=== PATIENT | female | born 1990 | race American Indian/Alaskan Native ===

== ENCOUNTER 2018-10-07 22:35 | Inpatient (IN) | payer OTHER, MEDICAID ==
[2018-10-07] MEDS ORDERED: LACTATED RINGERS 1,000 ML IV ONE (23:03)
[2018-10-07] MEDS ORDERED: ZOFRAN IV ONE (23:22)
[2018-10-07] MEDS ORDERED: PEPCID IV ONE (23:38)
[2018-10-07 23:39] LABS: Hematocrit 30.6 % (30.3-42.9); Hemoglobin 10.7 gm/dl (10.1-14.3); Mean Corpuscular HGB Conc 35 % (30-34); Mean Corpuscular Volume 92 fl (79-97); Platelet Count 179 K/mm3 (140-440); Red Blood Count 3.34 M/mm3 (3.65-5.03); Red Cell Distribution Width 14.2 % (13.2-15.2)
[2018-10-07 23:40] LABS: Bacteria,Urine 1+ /HPF (Negative); Bilirubin,Urine NEG (Negative); Blood,Urine NEG (Negative); Calcium Oxalate Crystals,Urine 2+; Color,Urine Yellow (Yellow); Mucus,Urine 1+ /HPF; Protein,Urine <15 mg/dL mg/dL (Negative); Urobilinogen,Urine < 2.0 mg/dL (<2.0)
[2018-10-07 23:53] LABS: Alanine Aminotransferase 88 units/L (7-56); Albumin 3.1 g/dL (3.9-5); BUN/Creatinine Ratio 20; Blood Urea Nitrogen 6 mg/dL (7-17); Calcium 8.8 mg/dL (8.4-10.2); Hemolysis Index 7
--- NOTE | 2018-10-08 01:14 | History and Physical Report ---
History of Present Illness Date of examination: 10/08/18 Date of admission: 10/08/18 Chief complaint: reflux History of present illness: Pt presented c/o having heartburn pain, burping with nausea w/o ability to find relief with otc meds. BP was initially elevated but cuff was changed and bps have trended downward. She had PIH labs and LFT were elevated. Pt does have CHTN with admission at 20 weeks and dx of super imposed pre E. 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 Pt admitted for observation for worsening pre E and for steroid administration. Menstrual History Regularity: regular Menses every: 28 days Duration: 4 LMP: 04/10/2018 LMP reliability: definite LMP character: heavier test type: urine test Date: 05/31/2018 BC at conception: none Planned ? no EDC Calculations LMP: 01/15/2019 EDC Confirmation: 01/15/2019 Gestational Age: 7 2/7 weeks Past History : 2 Term Births: 0 Premature Births: 0 Para: 0 Mult. Births: 0 Prev : 0 Prev. attempt? 0 Aborta: 1 Spont. Ab: 0 Past Medical History: Reviewed history from 07/24/2017 and no changes required: Hypertension untreated Past Surgical History: negative Past Medical History Anesthesia Complications: negative Anemia: negative Autoimmune Disorder: negative Bleeding Disorder: negative Blood Transfusions: negative Breast Disease: negative Diabetes: negative Heart Disease: negative Hypertension: positive Hepatitis/Liver Disease: negative Kidney Disease/UTI: negative Neurologic/Epilepsy/Migraines: negative Phlebitis/Varicosities: negative Psychiatric: negative Pulmonary Disease/Asthma: negative Thyroid Disease: negative Hospitalizations: negative 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 of genital herpes: no Partner hx. of genital herpes: no Rash, Viral, or Febrile illness since last LMP? no Varicella/Chicken Pox Status: Previous Disease Genetic History Congenital Heart Defect: Mom: no Dad: no Jasmin Disease: Mom: no Dad: no Thalassemia Mom: no Dad: no Neural Tube Defect Mom: no Dad: no Down's Syndrome Mom: no Dad: no Emmanuel-Sachs Mom: no Dad: no Sickle Cell Disease/Trait Mom: no Dad: no Hemophilia Mom: no Dad: no Muscular Dystrophy Mom: no Dad: no Cystic Fibrosis Mom: no Dad: no [place] Chorea Mom: no Dad: no Mental Retardation Mom: no Dad: no Fragile X Mom: no Dad: no Other Genetic/Chromosomal Disorder Mom: no Dad: no Child w/other defect Mom: no Dad: no Enviromental Exposures Xray Exposure: no Medication, drug, or alcohol use since LMP: no Chemical/Other Exposure: no Exposure to Cat Liter: no Hx of Parvovirus (Fifth Disease): no Occupational Exposure to Children: none Active Medications (reviewed today): ERGOCALCIFEROL 91200 UNIT ORAL CAPSULE (ERGOCALCIFEROL) 1 cap weekly for 8 weeks CHLORTHALIDONE 25 MG ORAL TABLET (CHLORTHALIDONE) 1 tab daily AMLODIPINE BESYLATE 5 MG ORAL TABLET (AMLODIPINE BESYLATE) 1 tablet q am Current Allergies (reviewed today): No known allergies Past History Past Medical History: hypertension, other (super imposed pre eclampsia) Past Surgical History: other (see hpi) 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) Family/Genetic History: other (see hpi) Social history: no significant social history, single - Obstetrical History Expected Date of Delivery: 01/15/19 Actual Gestation: 25 Week(s) 6 Day(s) : 2 Medications and Allergies Allergies Allergy/AdvReac Type Severity Reaction Status Date / Time No Known Allergies Allergy Verified 08/16/18 14:18 Home Medications Medication Instructions Recorded Confirmed Last Taken Type Labetalol HCl 300 mg PO Q12H 30 Days #60 tablet 08/16/18 10/07/18 10/07/18 10:00 Rx Pnv 29-1 Tablet 1 tab PO DAILY 09/07/18 10/07/18 10/07/18 History Aspirin 81 mg PO DAILY 09/08/18 10/07/18 10/07/18 10:00 History hydrALAZINE [Apresoline] 50 mg PO Q8HR 10/07/18 10/07/18 10/07/18 14:00 History Active Meds: Active Medications Famotidine (Pepcid) 20 mg IV ONCE ONE Stop: 10/08/18 23:23 Review of Systems All systems: negative - Vital Signs Vital signs: Vital Signs Pulse Pulse Ox 92 H 99 10/07/18 22:53 10/07/18 22:53 Temp Pulse Resp BP Pulse Ox 90 149/83 99 10/08/18 01:06 10/08/18 00:05 10/08/18 01:06 - Physical Exam Cardiovascular: Normal S1, Normal S2 Lungs: Positive: Normal air movement Abdomen: Positive: normal appearance, soft. Negative: distention, tenderness, guarding Genitourinary (Female): Positive: other (deferred) Deep Tendon Reflex Grade: Normal +2 - Obstetrical FHR: auscultation normal Results Result Diagrams: 10/07/18 23:17 10/07/18 23:17 Abnormal lab results 10/07/18 10/07/18 10/07/18 Range/Units 23:17 23:17 23:17 WBC 11.1 H (4.5-11.0) K/mm3 RBC 3.34 L (3.65-5.03) M/mm3 MCHC 35 H (30-34) % Sodium 133 L (137-145) mmol/L BUN 6 L (7-17) mg/dL Creatinine 0.3 L (0.7-1.2) mg/dL Uric Acid 3.0 L (3.5-7.6) mg/dL AST 157 H (5-40) units/L ALT 88 H (7-56) units/L Alkaline Phosphatase 189 H (35-129) units/L Total Protein 6.1 L (6.3-8.2) g/dL Albumin 3.1 L (3.9-5) g/dL All other labs normal. Assessment and Plan - Patient Problems (1) 25 weeks gestation of Current Visit: Yes Status: Acute (2) Elevated LFTs Current Visit: Yes Status: Acute Plan to address problem: -previously LFTS were normal. Will administer BMZ at this time as pt is viable and has dx of preE and may be showing worsening symptoms with elevated LFTs -24hr urine done previous admission and dx of pre E given. Will monitor labs at this time -M consultation (3) HTN in , chronic Current Visit: No Status: Acute Plan to address problem: -once cuff adjusted bps have improved -closely monitor and con't meds (4) IUGR (intrauterine growth restriction) Current Visit: No Status: Acute (5) Umbilical cord, single artery and vein Current Visit: No Status: Acute (6) Chronic hypertension with superimposed pre-eclampsia Current Visit: No Status: Chronic (7) ventricular septal defect affecting antepartum care of mother Current Visit: No Status: Chronic Qualifiers: Fetus number: single or unspecified fetus Qualified Code(s): O35.8XX0 - Maternal care for other (suspected) abnormality and damage, not applicable or unspecified
[2018-10-08] MEDS ORDERED: ZOFRAN IV PRN (02:08)
[2018-10-08] MEDS ORDERED: TYLENOL PO PRN (02:08)
[2018-10-08] MEDS ORDERED: CELESTONE SOLUSPAN IM ONE (02:44)
[2018-10-08] MEDS: APRESOLINE PO SCH ×3 (06:16→22:32)
[2018-10-08 06:54] LABS: Alanine Aminotransferase 128 units/L (7-56); Albumin 3.1 g/dL (3.9-5); BUN/Creatinine Ratio 10; Blood Urea Nitrogen 4 mg/dL (7-17); Hemolysis Index 1
[2018-10-08 08:08] LABS: Hematocrit 32.1 % (30.3-42.9); Hemoglobin 11.2 gm/dl (10.1-14.3); Mean Corpuscular HGB Conc 35 % (30-34); Mean Corpuscular Volume 90 fl (79-97); Platelet Count 147 K/mm3 (140-440); Red Blood Count 3.56 M/mm3 (3.65-5.03); Red Cell Distribution Width 14.3 % (13.2-15.2)
--- NOTE | 2018-10-08 09:00 | Progress Note ---
Assessment and Plan Patient resting comfortably in bed. No complaints at this time. Denies any PIH s/s, assessment WNL. DWP current plan of care. Awaiting consult from perinatologist and will update patient with any changes of plan per their recommendations. Subjective - Subjective Date of service: 10/08/18 Patient reports: movement normal, no new complaints, no loss of fluid, no vaginal bleeding, no contractions Objective - Vital Signs Vital Signs: Vital Signs - 12hr 10/07/18 10/07/18 10/07/18 22:53 22:55 22:58 Temperature Pulse Rate 92 H 97 H 92 H Respiratory Rate Blood Pressure Blood Pressure [Right] O2 Sat by Pulse 99 99 Oximetry 10/07/18 10/07/18 10/07/18 23:03 23:05 23:08 Temperature Pulse Rate 93 H 93 H 93 H Respiratory Rate Blood Pressure 168/101 Blood Pressure [Right] O2 Sat by Pulse 100 99 Oximetry 10/07/18 10/07/18 10/07/18 23:09 23:17 23:20 Temperature Pulse Rate 88 94 H 84 Respiratory Rate Blood Pressure 158/94 151/89 Blood Pressure [Right] O2 Sat by Pulse 99 Oximetry 10/07/18 10/07/18 10/07/18 23:22 23:27 23:32 Temperature Pulse Rate 85 91 H 85 Respiratory Rate Blood Pressure Blood Pressure [Right] O2 Sat by Pulse 100 99 99 Oximetry 10/07/18 10/07/18 10/07/18 23:35 23:36 23:41 Temperature Pulse Rate 85 85 85 Respiratory Rate Blood Pressure 153/89 Blood Pressure [Right] O2 Sat by Pulse 99 100 Oximetry 10/07/18 10/07/18 10/07/18 23:47 23:50 23:51 Temperature Pulse Rate 90 86 86 Respiratory Rate Blood Pressure 157/88 Blood Pressure [Right] O2 Sat by Pulse 100 99 Oximetry 10/07/18 10/08/18 10/08/18 23:56 00:01 00:05 Temperature Pulse Rate 87 89 85 Respiratory Rate Blood Pressure 149/83 Blood Pressure [Right] O2 Sat by Pulse 100 100 Oximetry 10/08/18 10/08/18 10/08/18 00:06 00:11 00:16 Temperature Pulse Rate 86 87 90 Respiratory Rate Blood Pressure Blood Pressure [Right] O2 Sat by Pulse 100 99 99 Oximetry 10/08/18 10/08/18 10/08/18 00:21 00:26 00:31 Temperature Pulse Rate 90 86 93 H Respiratory Rate Blood Pressure Blood Pressure [Right] O2 Sat by Pulse 100 99 100 Oximetry 10/08/18 10/08/18 10/08/18 00:36 00:41 00:46 Temperature Pulse Rate 96 H 88 88 Respiratory Rate Blood Pressure Blood Pressure [Right] O2 Sat by Pulse 100 100 100 Oximetry 10/08/18 10/08/18 10/08/18 00:51 00:56 01:01 Temperature Pulse Rate 88 87 91 H Respiratory Rate Blood Pressure Blood Pressure [Right] O2 Sat by Pulse 100 100 99 Oximetry 10/08/18 10/08/18 10/08/18 01:06 01:11 01:16 Temperature Pulse Rate 90 94 H 91 H Respiratory Rate Blood Pressure Blood Pressure [Right] O2 Sat by Pulse 99 99 98 Oximetry 10/08/18 10/08/18 10/08/18 01:17 01:21 01:26 Temperature 98.3 F Pulse Rate 92 H 84 84 Respiratory 18 Rate Blood Pressure 158/81 Blood Pressure 158/81 [Right] O2 Sat by Pulse 99 99 Oximetry 10/08/18 10/08/18 10/08/18 02:02 02:07 02:12 Temperature Pulse Rate 77 79 84 Respiratory Rate Blood Pressure Blood Pressure [Right] O2 Sat by Pulse 96 100 99 Oximetry 10/08/18 10/08/18 10/08/18 02:17 02:22 02:27 Temperature Pulse Rate 91 H 91 H 92 H Respiratory Rate Blood Pressure Blood Pressure [Right] O2 Sat by Pulse 99 99 100 Oximetry 10/08/18 10/08/18 10/08/18 02:32 02:37 02:42 Temperature Pulse Rate 92 H 90 84 Respiratory Rate Blood Pressure Blood Pressure [Right] O2 Sat by Pulse 99 99 100 Oximetry 10/08/18 10/08/18 10/08/18 02:47 02:52 02:57 Temperature Pulse Rate 89 95 H 91 H Respiratory Rate Blood Pressure Blood Pressure [Right] O2 Sat by Pulse 99 100 100 Oximetry 10/08/18 10/08/18 10/08/18 03:00 03:02 03:07 Temperature Pulse Rate 87 95 H 93 H Respiratory Rate Blood Pressure 134/78 Blood Pressure 138/78 [Right] O2 Sat by Pulse 98 98 Oximetry 10/08/18 10/08/18 10/08/18 03:13 03:18 03:23 Temperature Pulse Rate 93 H 99 H 92 H Respiratory Rate Blood Pressure Blood Pressure [Right] O2 Sat by Pulse 98 96 97 Oximetry 10/08/18 10/08/18 10/08/18 03:28 03:31 03:33 Temperature Pulse Rate 101 H 97 H 85 Respiratory Rate Blood Pressure 162/100 Blood Pressure [Right] O2 Sat by Pulse 97 97 Oximetry 10/08/18 10/08/18 10/08/18 03:38 03:43 03:48 Temperature Pulse Rate 94 H 89 104 H Respiratory Rate Blood Pressure Blood Pressure [Right] O2 Sat by Pulse 97 97 97 Oximetry 10/08/18 10/08/18 10/08/18 03:53 03:58 04:00 Temperature Pulse Rate 88 105 H 88 Respiratory Rate Blood Pressure 129/68 Blood Pressure [Right] O2 Sat by Pulse 96 97 92 Oximetry 10/08/18 10/08/18 10/08/18 04:03 04:08 04:13 Temperature Pulse Rate 83 92 H 91 H Respiratory Rate Blood Pressure Blood Pressure [Right] O2 Sat by Pulse 96 95 96 Oximetry 10/08/18 10/08/18 10/08/18 04:18 04:23 04:28 Temperature Pulse Rate 112 H 93 H 91 H Respiratory Rate Blood Pressure Blood Pressure [Right] O2 Sat by Pulse 97 98 96 Oximetry 10/08/18 10/08/18 10/08/18 04:30 04:33 04:38 Temperature Pulse Rate 94 H 89 91 H Respiratory Rate Blood Pressure 123/71 Blood Pressure [Right] O2 Sat by Pulse 94 96 96 Oximetry 10/08/18 10/08/18 10/08/18 04:43 04:48 04:53 Temperature Pulse Rate 88 88 89 Respiratory Rate Blood Pressure Blood Pressure [Right] O2 Sat by Pulse 96 96 96 Oximetry 10/08/18 10/08/18 10/08/18 04:58 05:00 05:03 Temperature Pulse Rate 84 86 82 Respiratory Rate Blood Pressure 131/78 Blood Pressure [Right] O2 Sat by Pulse 95 94 96 Oximetry 10/08/18 10/08/18 10/08/18 05:08 05:13 05:18 Temperature Pulse Rate 85 82 86 Respiratory Rate Blood Pressure Blood Pressure [Right] O2 Sat by Pulse 96 95 96 Oximetry 10/08/18 10/08/18 10/08/18 05:23 05:28 05:30 Temperature Pulse Rate 87 79 81 Respiratory Rate Blood Pressure 127/73 Blood Pressure [Right] O2 Sat by Pulse 96 96 94 Oximetry 10/08/18 10/08/18 10/08/18 05:33 05:38 05:43 Temperature Pulse Rate 81 83 86 Respiratory Rate Blood Pressure Blood Pressure [Right] O2 Sat by Pulse 96 96 96 Oximetry 10/08/18 10/08/18 10/08/18 05:48 05:53 05:58 Temperature Pulse Rate 73 88 82 Respiratory Rate Blood Pressure Blood Pressure [Right] O2 Sat by Pulse 97 96 97 Oximetry 10/08/18 10/08/18 10/08/18 06:00 06:03 06:08 Temperature Pulse Rate 86 81 82 Respiratory Rate Blood Pressure 131/75 Blood Pressure [Right] O2 Sat by Pulse 96 97 Oximetry 10/08/18 10/08/18 10/08/18 06:13 06:15 06:16 Temperature 98.3 F Pulse Rate 75 80 79 Respiratory 20 Rate Blood Pressure 133/77 133/77 Blood Pressure 133/75 [Right] O2 Sat by Pulse 95 Oximetry 10/08/18 10/08/18 07:38 08:25 Temperature Pulse Rate 83 87 Respiratory Rate Blood Pressure 137/69 151/84 Blood Pressure [Right] O2 Sat by Pulse Oximetry - Exam Breasts: normal Cardiovascular: Regular rate, Normal S1, Normal S2 Lungs: Clear to auscultation Abdomen: Present: normal appearance, soft, normal bowel sounds. Absent: distention, tenderness Uterus: Present: normal FHR: auscultation normal FHR comments: appropriate for gestational age Uterine Contraction Monitor Mode: External - Labs Labs: Abnormal Labs 10/07/18 10/07/18 10/07/18 23:17 23:17 23:17 WBC 11.1 H RBC 3.34 L MCHC 35 H Sodium 133 L Carbon Dioxide BUN 6 L Creatinine 0.3 L Glucose Uric Acid 3.0 L AST 157 H ALT 88 H Alkaline Phosphatase 189 H Total Protein 6.1 L Albumin 3.1 L 10/08/18 10/08/18 06:06 07:43 WBC RBC 3.56 L MCHC 35 H Sodium 136 L Carbon Dioxide 20 L BUN 4 L Creatinine 0.4 L Glucose 109 H Uric Acid AST 221 H ALT 128 H Alkaline Phosphatase 201 H Total Protein Albumin 3.1 L Laboratory Results - last 24 hr 10/07/18 10/07/18 10/07/18 23:17 23:17 23:17 WBC 11.1 H RBC 3.34 L Hgb 10.7 Hct 30.6 MCV 92 MCH 32 MCHC 35 H RDW 14.2 Plt Count 179 Sodium 133 L Potassium 3.9 Chloride 100.9 Carbon Dioxide 22 Anion Gap 14 BUN 6 L Creatinine 0.3 L Estimated GFR > 60 BUN/Creatinine Ratio 20 Glucose 95 Uric Acid Calcium 8.8 Total Bilirubin 0.50 AST 157 H ALT 88 H Alkaline Phosphatase 189 H Total Protein 6.1 L Albumin 3.1 L Albumin/Globulin Ratio 1.0 Amylase Lipase Urine Color Yellow Urine Turbidity Clear Urine pH 6.0 Ur Specific [place] 1.016 Urine Protein <15 mg/dl Urine Glucose (UA) Neg Urine Ketones Neg Urine Blood Neg Urine Nitrite Neg Urine Bilirubin Neg Urine Urobilinogen < 2.0 Ur Leukocyte Esterase Neg Urine WBC (Auto) 3.0 Urine RBC (Auto) 2.0 U Epithel Cells (Auto) 6.0 Urine Bacteria (Auto) 1+ Calcium Oxalate Crystal 2+ Urine Mucus 1+ Blood Type Antibody Screen 10/07/18 10/07/18 10/08/18 23:17 23:17 06:06 WBC RBC Hgb Hct MCV MCH MCHC RDW Plt Count Sodium 136 L Potassium 4.2 Chloride 104.0 Carbon Dioxide 20 L Anion Gap 16 BUN 4 L Creatinine 0.4 L Estimated GFR > 60 BUN/Creatinine Ratio 10 Glucose 109 H Uric Acid 3.0 L Calcium 9.0 Total Bilirubin 0.70 AST 221 H ALT 128 H Alkaline Phosphatase 201 H Total Protein 6.3 Albumin 3.1 L Albumin/Globulin Ratio 1.0 Amylase Lipase Urine Color Urine Turbidity Urine pH Ur Specific [place] Urine Protein Urine Glucose (UA) Urine Ketones Urine Blood Urine Nitrite Urine Bilirubin Urine Urobilinogen Ur Leukocyte Esterase Urine WBC (Auto) Urine RBC (Auto) U Epithel Cells (Auto) Urine Bacteria (Auto) Calcium Oxalate Crystal Urine Mucus Blood Type O POSITIVE Antibody Screen Negative 10/08/18 10/08/18 06:06 07:43 WBC 11.0 RBC 3.56 L Hgb 11.2 Hct 32.1 MCV 90 MCH 31 MCHC 35 H RDW 14.3 Plt Count 147 Sodium Potassium Chloride Carbon Dioxide Anion Gap BUN Creatinine Estimated GFR BUN/Creatinine Ratio Glucose Uric Acid Calcium Total Bilirubin AST ALT Alkaline Phosphatase Total Protein Albumin Albumin/Globulin Ratio Amylase 40 Lipase 19 Urine Color Urine Turbidity Urine pH Ur Specific [place] Urine Protein Urine Glucose (UA) Urine Ketones Urine Blood Urine Nitrite Urine Bilirubin Urine Urobilinogen Ur Leukocyte Esterase Urine WBC (Auto) Urine RBC (Auto) U Epithel Cells (Auto) Urine Bacteria (Auto) Calcium Oxalate Crystal Urine Mucus Blood Type Antibody Screen
[2018-10-08] MEDS ORDERED: CELESTONE SOLUSPAN IM SCH (10:00)
[2018-10-08] MEDS ORDERED: NORMODYNE PO SCH (10:00)
[2018-10-08] MEDS ORDERED: BABY ASPIRIN PO SCH (10:00)
[2018-10-08] MEDS: PRENATAL VITAMIN PO SCH (10:19)
[2018-10-08] MEDS ORDERED: LACTATED RINGERS 1,000 ML IV SCH (11:00)
--- NOTE | 2018-10-08 11:47 | Progress Note ---
Assessment and Plan AMFM consult pending Continue current management - Patient Problems (1) 26 weeks gestation of Current Visit: Yes Status: Acute (2) Body mass index (BMI) of 40.1 to 44.9 in adult Current Visit: Yes Status: Acute (3) Elevated LFTs Current Visit: Yes Status: Acute (4) HTN in , chronic Current Visit: No Status: Acute (5) IUGR (intrauterine growth restriction) Current Visit: No Status: Acute (6) Umbilical cord, single artery and vein Current Visit: No Status: Acute (7) Chronic hypertension with superimposed pre-eclampsia Current Visit: No Status: Chronic (8) ventricular septal defect affecting antepartum care of mother Current Visit: No Status: Chronic Qualifiers: Fetus number: single or unspecified fetus Qualified Code(s): O35.8XX0 - Maternal care for other (suspected) abnormality and damage, not applicable or unspecified (9) Fibroid Current Visit: Yes Status: Chronic Subjective - Subjective Date of service: 10/08/18 Interval history: IUP@2weeks, Preeclampsia with severe feature superimposed on HTN, anomalies Patient reports: movement normal, no new complaints, no loss of fluid, no vaginal bleeding, no contractions Objective - Vital Signs Vital Signs: Vital Signs - 12hr 10/07/18 10/07/18 10/07/18 23:47 23:50 23:51 Temperature Pulse Rate 90 86 86 Respiratory Rate Blood Pressure 157/88 Blood Pressure [Right] O2 Sat by Pulse 100 99 Oximetry 10/07/18 10/08/18 10/08/18 23:56 00:01 00:05 Temperature Pulse Rate 87 89 85 Respiratory Rate Blood Pressure 149/83 Blood Pressure [Right] O2 Sat by Pulse 100 100 Oximetry 10/08/18 10/08/18 10/08/18 00:06 00:11 00:16 Temperature Pulse Rate 86 87 90 Respiratory Rate Blood Pressure Blood Pressure [Right] O2 Sat by Pulse 100 99 99 Oximetry 10/08/18 10/08/18 10/08/18 00:21 00:26 00:31 Temperature Pulse Rate 90 86 93 H Respiratory Rate Blood Pressure Blood Pressure [Right] O2 Sat by Pulse 100 99 100 Oximetry 10/08/18 10/08/18 10/08/18 00:36 00:41 00:46 Temperature Pulse Rate 96 H 88 88 Respiratory Rate Blood Pressure Blood Pressure [Right] O2 Sat by Pulse 100 100 100 Oximetry 10/08/18 10/08/18 10/08/18 00:51 00:56 01:01 Temperature Pulse Rate 88 87 91 H Respiratory Rate Blood Pressure Blood Pressure [Right] O2 Sat by Pulse 100 100 99 Oximetry 10/08/18 10/08/18 10/08/18 01:06 01:11 01:16 Temperature Pulse Rate 90 94 H 91 H Respiratory Rate Blood Pressure Blood Pressure [Right] O2 Sat by Pulse 99 99 98 Oximetry 10/08/18 10/08/18 10/08/18 01:17 01:21 01:26 Temperature 98.3 F Pulse Rate 92 H 84 84 Respiratory 18 Rate Blood Pressure 158/81 Blood Pressure 158/81 [Right] O2 Sat by Pulse 99 99 Oximetry 10/08/18 10/08/18 10/08/18 02:02 02:07 02:12 Temperature Pulse Rate 77 79 84 Respiratory Rate Blood Pressure Blood Pressure [Right] O2 Sat by Pulse 96 100 99 Oximetry 10/08/18 10/08/18 10/08/18 02:17 02:22 02:27 Temperature Pulse Rate 91 H 91 H 92 H Respiratory Rate Blood Pressure Blood Pressure [Right] O2 Sat by Pulse 99 99 100 Oximetry 10/08/18 10/08/18 10/08/18 02:32 02:37 02:42 Temperature Pulse Rate 92 H 90 84 Respiratory Rate Blood Pressure Blood Pressure [Right] O2 Sat by Pulse 99 99 100 Oximetry 10/08/18 10/08/18 10/08/18 02:47 02:52 02:57 Temperature Pulse Rate 89 95 H 91 H Respiratory Rate Blood Pressure Blood Pressure [Right] O2 Sat by Pulse 99 100 100 Oximetry 10/08/18 10/08/18 10/08/18 03:00 03:02 03:07 Temperature Pulse Rate 87 95 H 93 H Respiratory Rate Blood Pressure 134/78 Blood Pressure 138/78 [Right] O2 Sat by Pulse 98 98 Oximetry 10/08/18 10/08/18 10/08/18 03:13 03:18 03:23 Temperature Pulse Rate 93 H 99 H 92 H Respiratory Rate Blood Pressure Blood Pressure [Right] O2 Sat by Pulse 98 96 97 Oximetry 10/08/18 10/08/18 10/08/18 03:28 03:31 03:33 Temperature Pulse Rate 101 H 97 H 85 Respiratory Rate Blood Pressure 162/100 Blood Pressure [Right] O2 Sat by Pulse 97 97 Oximetry 10/08/18 10/08/18 10/08/18 03:38 03:43 03:48 Temperature Pulse Rate 94 H 89 104 H Respiratory Rate Blood Pressure Blood Pressure [Right] O2 Sat by Pulse 97 97 97 Oximetry 10/08/18 10/08/18 10/08/18 03:53 03:58 04:00 Temperature Pulse Rate 88 105 H 88 Respiratory Rate Blood Pressure 129/68 Blood Pressure [Right] O2 Sat by Pulse 96 97 92 Oximetry 10/08/18 10/08/18 10/08/18 04:03 04:08 04:13 Temperature Pulse Rate 83 92 H 91 H Respiratory Rate Blood Pressure Blood Pressure [Right] O2 Sat by Pulse 96 95 96 Oximetry 10/08/18 10/08/18 10/08/18 04:18 04:23 04:28 Temperature Pulse Rate 112 H 93 H 91 H Respiratory Rate Blood Pressure Blood Pressure [Right] O2 Sat by Pulse 97 98 96 Oximetry 10/08/18 10/08/18 10/08/18 04:30 04:33 04:38 Temperature Pulse Rate 94 H 89 91 H Respiratory Rate Blood Pressure 123/71 Blood Pressure [Right] O2 Sat by Pulse 94 96 96 Oximetry 10/08/18 10/08/18 10/08/18 04:43 04:48 04:53 Temperature Pulse Rate 88 88 89 Respiratory Rate Blood Pressure Blood Pressure [Right] O2 Sat by Pulse 96 96 96 Oximetry 10/08/18 10/08/18 10/08/18 04:58 05:00 05:03 Temperature Pulse Rate 84 86 82 Respiratory Rate Blood Pressure 131/78 Blood Pressure [Right] O2 Sat by Pulse 95 94 96 Oximetry 10/08/18 10/08/18 10/08/18 05:08 05:13 05:18 Temperature Pulse Rate 85 82 86 Respiratory Rate Blood Pressure Blood Pressure [Right] O2 Sat by Pulse 96 95 96 Oximetry 10/08/18 10/08/18 10/08/18 05:23 05:28 05:30 Temperature Pulse Rate 87 79 81 Respiratory Rate Blood Pressure 127/73 Blood Pressure [Right] O2 Sat by Pulse 96 96 94 Oximetry 10/08/18 10/08/18 10/08/18 05:33 05:38 05:43 Temperature Pulse Rate 81 83 86 Respiratory Rate Blood Pressure Blood Pressure [Right] O2 Sat by Pulse 96 96 96 Oximetry 10/08/18 10/08/18 10/08/18 05:48 05:53 05:58 Temperature Pulse Rate 73 88 82 Respiratory Rate Blood Pressure Blood Pressure [Right] O2 Sat by Pulse 97 96 97 Oximetry 10/08/18 10/08/18 10/08/18 06:00 06:03 06:08 Temperature Pulse Rate 86 81 82 Respiratory Rate Blood Pressure 131/75 Blood Pressure [Right] O2 Sat by Pulse 96 97 Oximetry 10/08/18 10/08/18 10/08/18 06:13 06:15 06:16 Temperature 98.3 F Pulse Rate 75 80 79 Respiratory 20 Rate Blood Pressure 133/77 133/77 Blood Pressure 133/75 [Right] O2 Sat by Pulse 95 Oximetry 10/08/18 10/08/18 10/08/18 07:38 08:25 09:25 Temperature Pulse Rate 83 87 92 H Respiratory Rate Blood Pressure 137/69 151/84 161/93 Blood Pressure [Right] O2 Sat by Pulse Oximetry 10/08/18 10/08/18 10/08/18 10:15 10:19 10:25 Temperature Pulse Rate 93 H 93 H 89 Respiratory Rate Blood Pressure 142/90 142/90 145/91 Blood Pressure [Right] O2 Sat by Pulse Oximetry 10/08/18 10/08/18 10/08/18 11:25 11:29 11:34 Temperature Pulse Rate 91 H 94 H 101 H Respiratory Rate Blood Pressure 145/85 145/87 Blood Pressure [Right] O2 Sat by Pulse 96 96 Oximetry 10/08/18 10/08/18 11:39 11:44 Temperature Pulse Rate 104 H 98 H Respiratory Rate Blood Pressure Blood Pressure [Right] O2 Sat by Pulse 97 97 Oximetry - Exam Breasts: deferred Cardiovascular: Regular rate Lungs: Clear to auscultation, Normal air movement Abdomen: Present: soft, other (obese). Absent: tenderness Uterus: Present: other (unable to palpated d/t obesity). Absent: tenderness FHR: category 1 Uterine Contraction Monitor Mode: External Uterine Contraction Pattern: Absent Extremities: normal Deep Tendon Reflex Grade: Normal +2 - Labs Labs: Abnormal Labs 10/07/18 10/07/18 10/07/18 23:17 23:17 23:17 WBC 11.1 H RBC 3.34 L MCHC 35 H Sodium 133 L Carbon Dioxide BUN 6 L Creatinine 0.3 L Glucose Uric Acid 3.0 L AST 157 H ALT 88 H Alkaline Phosphatase 189 H Total Protein 6.1 L Albumin 3.1 L 10/08/18 10/08/18 06:06 07:43 WBC RBC 3.56 L MCHC 35 H Sodium 136 L Carbon Dioxide 20 L BUN 4 L Creatinine 0.4 L Glucose 109 H Uric Acid AST 221 H ALT 128 H Alkaline Phosphatase 201 H Total Protein Albumin 3.1 L Laboratory Results - last 24 hr 10/07/18 10/07/18 10/07/18 23:17 23:17 23:17 WBC 11.1 H RBC 3.34 L Hgb 10.7 Hct 30.6 MCV 92 MCH 32 MCHC 35 H RDW 14.2 Plt Count 179 Sodium 133 L Potassium 3.9 Chloride 100.9 Carbon Dioxide 22 Anion Gap 14 BUN 6 L Creatinine 0.3 L Estimated GFR > 60 BUN/Creatinine Ratio 20 Glucose 95 Uric Acid Calcium 8.8 Total Bilirubin 0.50 AST 157 H ALT 88 H Alkaline Phosphatase 189 H Total Protein 6.1 L Albumin 3.1 L Albumin/Globulin Ratio 1.0 Amylase Lipase Urine Color Yellow Urine Turbidity Clear Urine pH 6.0 Ur Specific [place] 1.016 Urine Protein <15 mg/dl Urine Glucose (UA) Neg Urine Ketones Neg Urine Blood Neg Urine Nitrite Neg Urine Bilirubin Neg Urine Urobilinogen < 2.0 Ur Leukocyte Esterase Neg Urine WBC (Auto) 3.0 Urine RBC (Auto) 2.0 U Epithel Cells (Auto) 6.0 Urine Bacteria (Auto) 1+ Calcium Oxalate Crystal 2+ Urine Mucus 1+ Blood Type Antibody Screen 10/07/18 10/07/18 10/08/18 23:17 23:17 06:06 WBC RBC Hgb Hct MCV MCH MCHC RDW Plt Count Sodium 136 L Potassium 4.2 Chloride 104.0 Carbon Dioxide 20 L Anion Gap 16 BUN 4 L Creatinine 0.4 L Estimated GFR > 60 BUN/Creatinine Ratio 10 Glucose 109 H Uric Acid 3.0 L Calcium 9.0 Total Bilirubin 0.70 AST 221 H ALT 128 H Alkaline Phosphatase 201 H Total Protein 6.3 Albumin 3.1 L Albumin/Globulin Ratio 1.0 Amylase Lipase Urine Color Urine Turbidity Urine pH Ur Specific [place] Urine Protein Urine Glucose (UA) Urine Ketones Urine Blood Urine Nitrite Urine Bilirubin Urine Urobilinogen Ur Leukocyte Esterase Urine WBC (Auto) Urine RBC (Auto) U Epithel Cells (Auto) Urine Bacteria (Auto) Calcium Oxalate Crystal Urine Mucus Blood Type O POSITIVE Antibody Screen Negative 10/08/18 10/08/18 06:06 07:43 WBC 11.0 RBC 3.56 L Hgb 11.2 Hct 32.1 MCV 90 MCH 31 MCHC 35 H RDW 14.3 Plt Count 147 Sodium Potassium Chloride Carbon Dioxide Anion Gap BUN Creatinine Estimated GFR BUN/Creatinine Ratio Glucose Uric Acid Calcium Total Bilirubin AST ALT Alkaline Phosphatase Total Protein Albumin Albumin/Globulin Ratio Amylase 40 Lipase 19 Urine Color Urine Turbidity Urine pH Ur Specific [place] Urine Protein Urine Glucose (UA) Urine Ketones Urine Blood Urine Nitrite Urine Bilirubin Urine Urobilinogen Ur Leukocyte Esterase Urine WBC (Auto) Urine RBC (Auto) U Epithel Cells (Auto) Urine Bacteria (Auto) Calcium Oxalate Crystal Urine Mucus Blood Type Antibody Screen
--- NOTE | 2018-10-08 12:37 | Consultation ---
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) Family/Genetic History: other (see hpi) - Obstetrical History : 2 Medications and Allergies Allergies Allergy/AdvReac Type Severity Reaction Status Date / Time No Known Allergies Allergy Verified 08/16/18 14:18 Home Medications Medication Instructions Recorded Confirmed Last Taken Type Labetalol HCl 300 mg PO Q12H 30 Days #60 tablet 08/16/18 10/07/18 10/07/18 10:00 Rx Pnv 29-1 Tablet 1 tab PO DAILY 09/07/18 10/07/18 10/07/18 History Aspirin 81 mg PO DAILY 09/08/18 10/07/18 10/07/18 10:00 History hydrALAZINE [Apresoline] 50 mg PO Q8HR 10/07/18 10/07/18 10/07/18 14:00 History Active Meds: Active Medications Betamethasone Acet/Betameth SodPhos ([place] Soluspan) 12 mg IM Q24HR [facility] Stop: 10/09/18 10:01 Docusate Sodium (Colace) 100 mg PO Q12H PRN PRN Reason: Constipation Famotidine (Pepcid) 20 mg IV ONCE ONE Stop: 10/08/18 23:23 Hydralazine HCl (Apresoline) 50 mg PO Q8HR [facility] Last Admin: 10/08/18 06:16 Dose: 50 mg Documented by: Lactated Ringer's (Lactated Ringers) 1,000 mls @ 42 mls/hr IV DIRECT [facility] Labetalol HCl (Normodyne) 300 mg PO BID [facility] Last Admin: 10/08/18 10:19 Dose: 300 mg Documented by: Multivitamins/Iron/Calcium ( Vitamin) 1 each PO QDAY [facility] Last Admin: 10/08/18 10:19 Dose: 1 each Documented by: Ondansetron HCl (Zofran) 4 mg IV Q6H PRN PRN Reason: Nausea And Vomiting Simethicone (Mylicon) 80 mg PO Q6H PRN PRN Reason: Gas pain - Vital Signs Vital signs: Vital Signs Pulse Pulse Ox 92 H 99 10/07/18 22:53 10/07/18 22:53 Temp Pulse Resp BP Pulse Ox 98.3 F 96 H 20 138/84 95 10/08/18 06:15 10/08/18 12:34 10/08/18 06:15 10/08/18 12:25 10/08/18 12:34 Results Result Diagrams: 10/08/18 07:43 10/08/18 06:06 Abnormal lab results 10/07/18 10/07/18 10/07/18 Range/Units 23:17 23:17 23:17 WBC 11.1 H (4.5-11.0) K/mm3 RBC 3.34 L (3.65-5.03) M/mm3 MCHC 35 H (30-34) % Sodium 133 L (137-145) mmol/L Carbon Dioxide (22-30) mmol/L BUN 6 L (7-17) mg/dL Creatinine 0.3 L (0.7-1.2) mg/dL Glucose (65-100) mg/dL Uric Acid 3.0 L (3.5-7.6) mg/dL AST 157 H (5-40) units/L ALT 88 H (7-56) units/L Alkaline Phosphatase 189 H (35-129) units/L Total Protein 6.1 L (6.3-8.2) g/dL Albumin 3.1 L (3.9-5) g/dL 10/08/18 10/08/18 Range/Units 06:06 07:43 WBC (4.5-11.0) K/mm3 RBC 3.56 L (3.65-5.03) M/mm3 MCHC 35 H (30-34) % Sodium 136 L (137-145) mmol/L Carbon Dioxide 20 L (22-30) mmol/L BUN 4 L (7-17) mg/dL Creatinine 0.4 L (0.7-1.2) mg/dL Glucose 109 H (65-100) mg/dL Uric Acid (3.5-7.6) mg/dL AST 221 H (5-40) units/L ALT 128 H (7-56) units/L Alkaline Phosphatase 201 H (35-129) units/L Total Protein (6.3-8.2) g/dL Albumin 3.1 L (3.9-5) g/dL All other labs normal. Assessment and Plan Pt seen Full consult to follow Christiano Esquivel MD [facility]
[2018-10-08] MEDS: D5LR 1,000 ML IV SCH (13:20)
--- NOTE | 2018-10-08 15:27 | Ultrasound Report ---
ULTRASOUND OB VELOCIMETRY UMBILICAL ARTERY HISTORY: Intrauterine growth restriction, severe preeclampsia. TECHNIQUE: Transabdominal ultrasound. Spectral Doppler interrogation was performed on 3 segments of the umbilical cord. FINDINGS: heart rate measures 135 beats per minute. The spectral waveforms are normal and persistent. No evidence for loss or reversal of end-diastolic flow. The resistive index average measures 0.71. The systolic/diastolic ratio average measures 3.6. IMPRESSION: Mildly elevated resistive indices.
--- NOTE | 2018-10-08 15:30 | Ultrasound Report ---
OB ULTRASOUND History severe preeclampsia. Technique: Transabdominal ultrasound with Doppler interrogation. Gestation: Single Position: Cephalic Amniotic Fluid: Normal REBEKAH = 8.9 cm Heart Rate: 135 BPM BPD: 5.0 cm = 21 w 0 d HC: 19.7 cm = 21 w 6 d AC: 16.6 cm = 21 w 4 d FL: 4 cm = 22 w 6 d HC/AC Ratio: 1.2 Cephalic Index: 73.9 Estimated Weight: 473 grams Clinical age = 25 w 6 d EDC: 01/15/19 US Gest. Age = 21 w 6 d EDC: 02/12/19 IMPRESSION: Viable, single intrauterine as described.
--- NOTE | 2018-10-08 15:56 | Consultation ---
Consult Note - Parent Education I met with parent(s) and discussed the following:: Need for NICU admission, Poss ible need for intubation and surfactant or other resp support, Temperature regulation, Head ultrasounds to evaluate IVH, Eye exams for ROP screening, Possible need for IV fluids/TPN and IV antibiotics, Possible need for umbilical lines, Importance of providing breast milk & encouraged pumping aft delivery, Donor breast milk if baby meets criteria after , Slow feeding advancement and monitoring of tolerance. NG/OG feeds, Data for survival & survival without significant co-morbidities (50 -60% survival, 20-30% survival without significnat co-morbidity) Parent(s) demonstrated understanding of all the information:: Yes Additional Comment: Mother has chronic hypertension with super-imposed pre- eclampsia, elevated liver enzymes and borderline low platelets Assessment and Plan - Assessment Gestation:: 25 (25 weeks 6 days, severe IUGR) Estimated Weight: 470 g Baby's gender: Female Baby's name: Muriel Additional Comment: diagnosis of trena-membranous VSD( Cardiology eval after delivery). 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 US/MRI). Single umbilcal artery. - Plan Plan: Timing of delivery per OB/perinatology team Agree with Mag & steroids Will attend delivery Please call NICU with questions
[2018-10-08 16:39] LABS: Hematocrit 32.4 % (30.3-42.9); Hemoglobin 11.1 gm/dl (10.1-14.3); Mean Corpuscular HGB Conc 34 % (30-34); Mean Corpuscular Volume 91 fl (79-97); Platelet Count 160 K/mm3 (140-440); Red Blood Count 3.54 M/mm3 (3.65-5.03); Red Cell Distribution Width 14.3 % (13.2-15.2)
[2018-10-08 16:56] LABS: Alanine Aminotransferase 102 units/L (7-56); Uric Acid 3.1 mg/dL (3.5-7.6)
[2018-10-08] MEDS: NORMODYNE PO SCH (22:30)
[2018-10-08] MEDS: AMBIEN PO PRN (22:57)
[2018-10-08] MEDS ORDERED: PEPCID IV ONE (23:22)
[2018-10-09 05:25] LABS: Hematocrit 31.6 % (30.3-42.9); Hemoglobin 10.7 gm/dl (10.1-14.3); Mean Corpuscular HGB Conc 34 % (30-34); Mean Corpuscular Volume 91 fl (79-97); Platelet Count 177 K/mm3 (140-440); Red Blood Count 3.46 M/mm3 (3.65-5.03); Red Cell Distribution Width 14.2 % (13.2-15.2)
[2018-10-09 05:37] LABS: Benzodiazepines Screen,Urine PRESUMPTIVE NEGATIVE; Cocaine Screen,Urine PRESUMPTIVE NEGATIVE; Methadone Screen,Urine PRESUMPTIVE NEGATIVE; Opiate Screen,Urine PRESUMPTIVE NEGATIVE
[2018-10-09 05:51] LABS: Alanine Aminotransferase 78 units/L (7-56)
[2018-10-09 05:53] LABS: Amphetamine Screen,Urine PRESUMPTIVE POSITIVE; Cannabinoid Screen,Urine PRESUMPTIVE POSITIVE
[2018-10-09] MEDS: APRESOLINE PO SCH ×3 (06:05→22:21)
[2018-10-09 06:11] LABS: Uric Acid 3.4 mg/dL (3.5-7.6)
--- NOTE | 2018-10-09 08:30 | Progress Note ---
Assessment and Plan Spoke with who had just seen the pt. Pt's labs from 0500 this AM reviewed Last BMZ given @ 0300 Pt to have clears this morning for breakfast. Pt resting on her side, denies HENSON, blurred vision, chest pain. Reports +FM BPs 140-130/90-70 Will continue meds as ordered. Monitor for signs of HELLP Labs are Q12hr aware Continue POC as noted Subjective - Subjective Date of service: 10/09/18 (pt w/o complaint; requsting her "liquids") Principal diagnosis: IUP @ 26w0d w/ CHTN with PreE Patient reports: movement normal, no new complaints, no loss of fluid, no vaginal bleeding, no contractions Objective - Vital Signs Vital Signs: Vital Signs - 12hr 10/08/18 10/08/18 10/08/18 21:01 22:01 22:41 Pulse Rate 103 H 97 H 96 H Blood Pressure 140/84 138/75 128/71 10/08/18 10/09/18 10/09/18 23:03 03:16 06:08 Pulse Rate 96 H 96 H 93 H Blood Pressure 124/72 124/59 130/83 - Exam Breasts: deferred Cardiovascular: Regular rate Lungs: Clear to auscultation Abdomen: Present: normal appearance, normal bowel sounds Uterus: Present: normal FHR: category 1 Uterine Contraction Monitor Mode: External Uterine Contraction Pattern: Absent Uterine Tone Measurement Phase: Resting Extremities: edema Deep Tendon Reflex Grade: Normal but brisk +3 - Labs Labs: Abnormal Labs 10/07/18 10/07/18 10/07/18 23:17 23:17 23:17 WBC 11.1 H RBC 3.34 L MCHC 35 H Sodium 133 L Carbon Dioxide BUN 6 L Creatinine 0.3 L Glucose Uric Acid 3.0 L AST 157 H ALT 88 H Alkaline Phosphatase 189 H Lactate Dehydrogenase Total Protein 6.1 L Albumin 3.1 L 10/08/18 10/08/18 10/08/18 06:06 07:43 16:04 WBC 12.9 H RBC 3.56 L 3.54 L MCHC 35 H Sodium 136 L Carbon Dioxide 20 L BUN 4 L Creatinine 0.4 L Glucose 109 H Uric Acid AST 221 H ALT 128 H Alkaline Phosphatase 201 H Lactate Dehydrogenase Total Protein Albumin 3.1 L 10/08/18 10/09/18 10/09/18 16:04 05:10 05:10 WBC 12.0 H RBC 3.46 L MCHC Sodium Carbon Dioxide BUN Creatinine 0.4 L 0.5 L Glucose Uric Acid 3.1 L 3.4 L AST 120 H 66 H ALT 102 H 78 H Alkaline Phosphatase Lactate Dehydrogenase 335 H 240 H Total Protein Albumin Laboratory Results - last 24 hr 10/08/18 10/08/18 10/08/18 05:10 16:04 16:04 WBC 12.9 H RBC 3.54 L Hgb 11.1 Hct 32.4 MCV 91 MCH 31 MCHC 34 RDW 14.3 Plt Count 160 Creatinine 0.4 L Estimated GFR > 60 Uric Acid 3.1 L AST 120 H ALT 102 H Lactate Dehydrogenase 335 H Urine Opiates Screen Presumptive negative Urine Methadone Screen Presumptive negative Ur Barbiturates Screen Presumptive negative Ur Phencyclidine Scrn Presumptive negative Ur Amphetamines Screen Presumptive positive U Benzodiazepines Scrn Presumptive negative Urine Cocaine Screen Presumptive negative U Marijuana (THC) Screen Presumptive positive Drugs of Abuse Note Disclamer 10/09/18 10/09/18 05:10 05:10 WBC 12.0 H RBC 3.46 L Hgb 10.7 Hct 31.6 MCV 91 MCH 31 MCHC 34 RDW 14.2 Plt Count 177 Creatinine 0.5 L Estimated GFR > 60 Uric Acid 3.4 L AST 66 H ALT 78 H Lactate Dehydrogenase 240 H Urine Opiates Screen Urine Methadone Screen Ur Barbiturates Screen Ur Phencyclidine Scrn Ur Amphetamines Screen U Benzodiazepines Scrn Urine Cocaine Screen U Marijuana (THC) Screen Drugs of Abuse Note
[2018-10-09] MEDS: NORMODYNE PO SCH ×2 (10:13→22:24)
[2018-10-09] MEDS: PRENATAL VITAMIN PO SCH (10:14)
--- NOTE | 2018-10-09 10:55 | Event Note ---
Date: 10/09/18 Agree with MW/MARINE DRILLER exam and note. Will con't current expectant management at this time. LFTs are lower but likely due to being s/p BMZ. Will con't to closely monitor.
--- NOTE | 2018-10-09 15:07 | Progress Note ---
Assessment and Plan Assessment: 1. IUP at 26 weeks gestation 2. Maternal HTN w/ superimposed preeclampsia with severe features based on elevated LFT , possible progression to HELLP baseline 24 hr TP 144mg ( 06/28 ), repeat was 354mg ( 09/06) - [facility] 3. SUA 4.Fetus -small perimembranous VSD -s/p [place] echo 09/23 echo at 1 week of life as either in or out pt is advised 5. 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 Brain appeared otherwise normal. This may be an normal variant but confirmation with an US and MRI are recommended 6. IUGR 7. Fibroids Rec: 1. Complete course of steroids 2. Continue Labetalol and Hydralazine at the current dose Titrate to maintain BP 120-160/80-105mmhg 3. Will need twice weekly testing with Dopplers.REBEKAH Start BPP at 27-28 weeks gestation 4. Continue labs q12hr to monitor for further end organ damage , progression to HELLP 5. Advised that delivery is recommended if labs are consistent with HELLP or she becomes symptomatic Subjective - Subjective Principal diagnosis: IUP @ 26w0d w/ CHTN with PreE Interval history: No complaints- denies headaches, visual changes, chest pain, SOB or RUQ pain. Good movement. Patient reports: movement normal, no new complaints, no loss of fluid, no vaginal bleeding, no contractions Objective - Vital Signs Vital Signs: Vital Signs - 12hr 10/09/18 10/09/18 10/09/18 03:16 06:08 08:47 Pulse Rate 96 H 93 H 96 H Blood Pressure 124/59 130/83 142/81 - Exam Abdomen: Present: soft - Labs Labs: Abnormal Labs 10/07/18 10/07/18 10/07/18 23:17 23:17 23:17 WBC 11.1 H RBC 3.34 L MCHC 35 H Sodium 133 L Carbon Dioxide BUN 6 L Creatinine 0.3 L Glucose Uric Acid 3.0 L AST 157 H ALT 88 H Alkaline Phosphatase 189 H Lactate Dehydrogenase Total Protein 6.1 L Albumin 3.1 L 10/08/18 10/08/18 10/08/18 06:06 07:43 16:04 WBC 12.9 H RBC 3.56 L 3.54 L MCHC 35 H Sodium 136 L Carbon Dioxide 20 L BUN 4 L Creatinine 0.4 L Glucose 109 H Uric Acid AST 221 H ALT 128 H Alkaline Phosphatase 201 H Lactate Dehydrogenase Total Protein Albumin 3.1 L 10/08/18 10/09/18 10/09/18 16:04 05:10 05:10 WBC 12.0 H RBC 3.46 L MCHC Sodium Carbon Dioxide BUN Creatinine 0.4 L 0.5 L Glucose Uric Acid 3.1 L 3.4 L AST 120 H 66 H ALT 102 H 78 H Alkaline Phosphatase Lactate Dehydrogenase 335 H 240 H Total Protein Albumin Laboratory Results - last 24 hr 10/08/18 10/08/18 10/08/18 05:10 16:04 16:04 WBC 12.9 H RBC 3.54 L Hgb 11.1 Hct 32.4 MCV 91 MCH 31 MCHC 34 RDW 14.3 Plt Count 160 Creatinine 0.4 L Estimated GFR > 60 Uric Acid 3.1 L AST 120 H ALT 102 H Lactate Dehydrogenase 335 H Urine Opiates Screen Presumptive negative Urine Methadone Screen Presumptive negative Ur Barbiturates Screen Presumptive negative Ur Phencyclidine Scrn Presumptive negative Ur Amphetamines Screen Presumptive positive U Benzodiazepines Scrn Presumptive negative Urine Cocaine Screen Presumptive negative U Marijuana (THC) Screen Presumptive positive Drugs of Abuse Note Disclamer 10/09/18 10/09/18 05:10 05:10 WBC 12.0 H RBC 3.46 L Hgb 10.7 Hct 31.6 MCV 91 MCH 31 MCHC 34 RDW 14.2 Plt Count 177 Creatinine 0.5 L Estimated GFR > 60 Uric Acid 3.4 L AST 66 H ALT 78 H Lactate Dehydrogenase 240 H Urine Opiates Screen Urine Methadone Screen Ur Barbiturates Screen Ur Phencyclidine Scrn Ur Amphetamines Screen U Benzodiazepines Scrn Urine Cocaine Screen U Marijuana (THC) Screen Drugs of Abuse Note
[2018-10-09 20:35] LABS: Hematocrit 30.3 % (30.3-42.9); Hemoglobin 10.3 gm/dl (10.1-14.3); Mean Corpuscular HGB Conc 34 % (30-34); Mean Corpuscular Volume 93 fl (79-97); Platelet Count 191 K/mm3 (140-440); Red Blood Count 3.26 M/mm3 (3.65-5.03); Red Cell Distribution Width 14.4 % (13.2-15.2)
[2018-10-09 21:02] LABS: Alanine Aminotransferase 61 units/L (7-56)
[2018-10-09] MEDS: AMBIEN PO PRN (22:25)
[2018-10-10 06:17] LABS: Hematocrit 29.3 % (30.3-42.9); Hemoglobin 9.9 gm/dl (10.1-14.3); Mean Corpuscular HGB Conc 34 % (30-34); Mean Corpuscular Volume 92 fl (79-97); Platelet Count 193 K/mm3 (140-440); Red Blood Count 3.18 M/mm3 (3.65-5.03); Red Cell Distribution Width 14.2 % (13.2-15.2)
[2018-10-10 06:32] LABS: Alanine Aminotransferase 49 units/L (7-56); Albumin 3.2 g/dL (3.9-5); BUN/Creatinine Ratio 13; Blood Urea Nitrogen 5 mg/dL (7-17); Calcium 8.6 mg/dL (8.4-10.2); Hemolysis Index 7
[2018-10-10] MEDS: APRESOLINE PO SCH ×3 (07:00→22:23)
--- NOTE | 2018-10-10 07:36 | Progress Note ---
Assessment and Plan Patient resting, no complaints this morning. reports active FM. denies HENSON, visual changes or epigastric pain. Pt requesting regular diet - consulted with Dr. hendrickson. Will start low sodium diet this morning. Continue current monitoring and plan of care as established with [facility]. Assessment: 1. IUP at 26+1 weeks gestation 2. Maternal HTN w/ superimposed preeclampsia with severe features based on elevated LFT , possible progression to HELLP baseline 24 hr TP 144mg ( 06/28 ), repeat was 354mg ( 09/06) - [facility] 3. SUA 4.Fetus -small perimembranous VSD -s/p [place] echo 09/23 echo at 1 week of life as either in or out pt is advised 5. 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 Brain appeared otherwise normal. This may be an normal variant but confirmation with an US and MRI are recommended 6. IUGR 7. Fibroids Plan per [facility]: 1. Complete course of steroids (per PATTI Murphy, she received report that steroid series is complete, but only one dose documented on NOV. CN aware and will follow up) 2. Continue Labetalol and Hydralazine at the current dose Titrate to maintain BP 120-160/80-105mmhg 3. Will need twice weekly testing with Dopplers/REBEKAH (ordered for 10/11/18) -Start BPP at 27-28 weeks gestation 4. Continue labs q12hr to monitor for further end organ damage , progression to HELLP (ordered series 0600/1800) 5. Advised that delivery is recommended if labs are consistent with HELLP or she becomes symptomatic - Patient Problems (1) 26 weeks gestation of Current Visit: Yes Status: Acute (2) IUGR (intrauterine growth restriction) Current Visit: No Status: Acute (3) Umbilical cord, single artery and vein Current Visit: No Status: Acute (4) Chronic hypertension with superimposed pre-eclampsia Current Visit: No Status: Chronic (5) ventricular septal defect affecting antepartum care of mother Current Visit: No Status: Chronic Qualifiers: Fetus number: single or unspecified fetus Qualified Code(s): O35.8XX0 - Maternal care for other (suspected) abnormality and damage, not applicable or unspecified Subjective - Subjective Date of service: 10/10/18 Principal diagnosis: IUP @ 26w1d w/ CHTN with superimposed PreE Patient reports: movement normal, no new complaints, no loss of fluid, no vaginal bleeding, no contractions, no other (no HENSON, visual changes or epigastric pain) Objective - Vital Signs Vital Signs: Vital Signs - 12hr 10/09/18 10/09/18 10/09/18 21:20 21:21 22:21 Temperature 98.2 F Pulse Rate 101 H 90 Respiratory 18 Rate Blood Pressure 141/81 133/67 10/09/18 10/09/18 10/09/18 22:22 22:24 23:58 Temperature Pulse Rate 90 90 89 Respiratory Rate Blood Pressure 133/67 133/67 124/71 10/10/18 10/10/18 10/10/18 00:00 03:55 04:00 Temperature 98.5 F 97.6 F Pulse Rate 100 H Respiratory 18 18 Rate Blood Pressure 103/56 10/10/18 10/10/18 07:00 07:02 Temperature Pulse Rate 83 83 Respiratory Rate Blood Pressure 126/83 126/65 - Exam Breasts: normal Cardiovascular: Regular rate Lungs: Clear to auscultation, Normal air movement Abdomen: Present: normal appearance, soft Uterus: Present: normal Uterine Tone Measurement Phase: Resting Extremities: normal Deep Tendon Reflex Grade: Normal +2 - Labs Labs: Abnormal Labs 10/07/18 10/07/18 10/07/18 23:17 23:17 23:17 WBC 11.1 H RBC 3.34 L Hgb Hct MCHC 35 H Sodium 133 L Carbon Dioxide BUN 6 L Creatinine 0.3 L Glucose Uric Acid 3.0 L AST 157 H ALT 88 H Alkaline Phosphatase 189 H Lactate Dehydrogenase Total Protein 6.1 L Albumin 3.1 L 10/08/18 10/08/18 10/08/18 06:06 07:43 16:04 WBC 12.9 H RBC 3.56 L 3.54 L Hgb Hct MCHC 35 H Sodium 136 L Carbon Dioxide 20 L BUN 4 L Creatinine 0.4 L Glucose 109 H Uric Acid AST 221 H ALT 128 H Alkaline Phosphatase 201 H Lactate Dehydrogenase Total Protein Albumin 3.1 L 10/08/18 10/09/18 10/09/18 16:04 05:10 05:10 WBC 12.0 H RBC 3.46 L Hgb Hct MCHC Sodium Carbon Dioxide BUN Creatinine 0.4 L 0.5 L Glucose Uric Acid 3.1 L 3.4 L AST 120 H 66 H ALT 102 H 78 H Alkaline Phosphatase Lactate Dehydrogenase 335 H 240 H Total Protein Albumin 10/09/18 10/09/18 10/10/18 19:58 19:58 05:43 WBC 15.0 H 13.2 H RBC 3.26 L 3.18 L Hgb 9.9 L Hct 29.3 L MCHC Sodium Carbon Dioxide BUN Creatinine Glucose Uric Acid AST ALT 61 H Alkaline Phosphatase Lactate Dehydrogenase Total Protein Albumin 10/10/18 05:43 WBC RBC Hgb Hct MCHC Sodium Carbon Dioxide 21 L BUN 5 L Creatinine 0.4 L Glucose 109 H Uric Acid AST ALT Alkaline Phosphatase 170 H Lactate Dehydrogenase Total Protein 5.8 L Albumin 3.2 L Laboratory Results - last 24 hr 10/09/18 10/09/18 10/10/18 19:58 19:58 05:43 WBC 15.0 H 13.2 H RBC 3.26 L 3.18 L Hgb 10.3 9.9 L Hct 30.3 29.3 L MCV 93 92 MCH 32 31 MCHC 34 34 RDW 14.4 14.2 Plt Count 191 193 Sodium Potassium Chloride Carbon Dioxide Anion Gap BUN Creatinine Estimated GFR BUN/Creatinine Ratio Glucose Calcium Total Bilirubin AST 37 ALT 61 H Alkaline Phosphatase Total Protein Albumin Albumin/Globulin Ratio 10/10/18 05:43 WBC RBC Hgb Hct MCV MCH MCHC RDW Plt Count Sodium 138 Potassium 3.9 Chloride 104.1 Carbon Dioxide 21 L Anion Gap 17 BUN 5 L Creatinine 0.4 L Estimated GFR > 60 BUN/Creatinine Ratio 13 Glucose 109 H Calcium 8.6 Total Bilirubin 0.20 AST 29 ALT 49 Alkaline Phosphatase 170 H Total Protein 5.8 L Albumin 3.2 L Albumin/Globulin Ratio 1.2
--- NOTE | 2018-10-10 10:12 | Progress Note ---
Assessment and Plan Assessment: 1. IUP at 26 1/7 weeks gestation 2. Maternal HTN w/ superimposed preeclampsia with severe features based on elevated LFT LFT have improved, plt count has remained normal baseline 24 hr TP 144mg ( 06/28 ), repeat was 354mg ( 09/06) - [facility] 3. SUA 4.Fetus -small perimembranous VSD -s/p [place] echo 09/23 echo at 1 week of life as either in or out pt is advised 5. 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 Brain appeared otherwise normal. This may be an normal variant but confirmation with an US and MRI are recommended 6. IUGR 7. Fibroids 8. s/p NICU consult and course of betamethasone Rec: 1. 2. Continue Labetalol and Hydralazine at the current dose Titrate to maintain BP 120-160/80-105mmhg 3. Continue twice weekly testing with Dopplers.[email or web address] Start BPP at 27-28 weeks gestation 4. Labs have been stable , check the CBC/CMP qdaily to monitor for further end organ damage , progression to HELLP 5. Advised that delivery is advised no later than 34 0/7 weeks, a sooner delivery is advised if labs are consistent with HELLP, renal failure, non reassuring testing Subjective - Subjective Date of service: 10/10/18 Principal diagnosis: IUP @ 26w1d w/ CHTN with superimposed PreE Interval history: She denies HENSON, visual changes, CP, RUQ pain Good movement noted Patient reports: movement normal, no new complaints, no loss of fluid, no vaginal bleeding, no contractions, no other (no HENSON, visual changes or epigastric pain) Objective - Vital Signs Vital Signs: Vital Signs - 12hr 10/09/18 10/09/18 10/09/18 22:21 22:22 22:24 Temperature Pulse Rate 90 90 90 Respiratory Rate Blood Pressure 133/67 133/67 133/67 10/09/18 10/10/18 10/10/18 23:58 00:00 03:55 Temperature 98.5 F Pulse Rate 89 100 H Respiratory 18 Rate Blood Pressure 124/71 103/56 10/10/18 10/10/18 10/10/18 04:00 07:00 07:02 Temperature 97.6 F Pulse Rate 83 83 Respiratory 18 Rate Blood Pressure 126/83 126/65 10/10/18 09:24 Temperature Pulse Rate 92 H Respiratory Rate Blood Pressure 140/67 - Exam Narrative Exam: Sitting at bedside , NAD Abdomen: Present: normal appearance, soft - Labs Labs: Abnormal Labs 10/07/18 10/07/18 10/07/18 23:17 23:17 23:17 WBC 11.1 H RBC 3.34 L Hgb Hct MCHC 35 H Sodium 133 L Carbon Dioxide BUN 6 L Creatinine 0.3 L Glucose Uric Acid 3.0 L AST 157 H ALT 88 H Alkaline Phosphatase 189 H Lactate Dehydrogenase Total Protein 6.1 L Albumin 3.1 L 10/08/18 10/08/18 10/08/18 06:06 07:43 16:04 WBC 12.9 H RBC 3.56 L 3.54 L Hgb Hct MCHC 35 H Sodium 136 L Carbon Dioxide 20 L BUN 4 L Creatinine 0.4 L Glucose 109 H Uric Acid AST 221 H ALT 128 H Alkaline Phosphatase 201 H Lactate Dehydrogenase Total Protein Albumin 3.1 L 10/08/18 10/09/18 10/09/18 16:04 05:10 05:10 WBC 12.0 H RBC 3.46 L Hgb Hct MCHC Sodium Carbon Dioxide BUN Creatinine 0.4 L 0.5 L Glucose Uric Acid 3.1 L 3.4 L AST 120 H 66 H ALT 102 H 78 H Alkaline Phosphatase Lactate Dehydrogenase 335 H 240 H Total Protein Albumin 10/09/18 10/09/18 10/10/18 19:58 19:58 05:43 WBC 15.0 H 13.2 H RBC 3.26 L 3.18 L Hgb 9.9 L Hct 29.3 L MCHC Sodium Carbon Dioxide BUN Creatinine Glucose Uric Acid AST ALT 61 H Alkaline Phosphatase Lactate Dehydrogenase Total Protein Albumin 10/10/18 05:43 WBC RBC Hgb Hct MCHC Sodium Carbon Dioxide 21 L BUN 5 L Creatinine 0.4 L Glucose 109 H Uric Acid AST ALT Alkaline Phosphatase 170 H Lactate Dehydrogenase Total Protein 5.8 L Albumin 3.2 L Laboratory Results - last 24 hr 10/09/18 10/09/18 10/10/18 19:58 19:58 05:43 WBC 15.0 H 13.2 H RBC 3.26 L 3.18 L Hgb 10.3 9.9 L Hct 30.3 29.3 L MCV 93 92 MCH 32 31 MCHC 34 34 RDW 14.4 14.2 Plt Count 191 193 Sodium Potassium Chloride Carbon Dioxide Anion Gap BUN Creatinine Estimated GFR BUN/Creatinine Ratio Glucose Calcium Total Bilirubin AST 37 ALT 61 H Alkaline Phosphatase Total Protein Albumin Albumin/Globulin Ratio 10/10/18 05:43 WBC RBC Hgb Hct MCV MCH MCHC RDW Plt Count Sodium 138 Potassium 3.9 Chloride 104.1 Carbon Dioxide 21 L Anion Gap 17 BUN 5 L Creatinine 0.4 L Estimated GFR > 60 BUN/Creatinine Ratio 13 Glucose 109 H Calcium 8.6 Total Bilirubin 0.20 AST 29 ALT 49 Alkaline Phosphatase 170 H Total Protein 5.8 L Albumin 3.2 L Albumin/Globulin Ratio 1.2
[2018-10-10] MEDS: NORMODYNE PO SCH ×2 (10:16→22:22)
[2018-10-10 18:09] LABS: Hematocrit 31.9 % (30.3-42.9); Hemoglobin 10.9 gm/dl (10.1-14.3); Mean Corpuscular HGB Conc 34 % (30-34); Mean Corpuscular Volume 91 fl (79-97); Platelet Count 220 K/mm3 (140-440); Red Blood Count 3.51 M/mm3 (3.65-5.03); Red Cell Distribution Width 14.5 % (13.2-15.2)
[2018-10-10 18:24] LABS: Alanine Aminotransferase 49 units/L (7-56); Uric Acid 3.8 mg/dL (3.5-7.6)
[2018-10-10] MEDS: AMBIEN PO PRN (22:24)
[2018-10-11 05:47] LABS: Hemoglobin 9.9 gm/dl (10.1-14.3); Mean Corpuscular HGB Conc 33 % (30-34); Mean Corpuscular Volume 93 fl (79-97); Platelet Count 215 K/mm3 (140-440); Red Blood Count 3.23 M/mm3 (3.65-5.03); Red Cell Distribution Width 14.6 % (13.2-15.2)
[2018-10-11 06:21] LABS: Alanine Aminotransferase 42 units/L (7-56); Uric Acid 3.4 mg/dL (3.5-7.6)
[2018-10-11] MEDS: APRESOLINE PO SCH ×3 (06:34→22:46)
--- NOTE | 2018-10-11 08:30 | Progress Note ---
Assessment and Plan Patient resting comfortably in bed. No complaints at this time. Denies any PIH s/s, assessment WNL. DWP continuance of current POC per [facility] recommendations. Subjective - Subjective Date of service: 10/11/18 Principal diagnosis: IUP @ 26w2d w/ CHTN with superimposed PreE Patient reports: movement normal, no new complaints, no loss of fluid, no vaginal bleeding, no contractions, no other (no HENSON, visual changes or epigastric pain) Objective - Vital Signs Vital Signs: Vital Signs - 12hr 10/10/18 10/10/18 10/10/18 22:09 22:20 22:22 Temperature 98.0 F Pulse Rate 91 H 91 H 91 H Respiratory 20 Rate Blood Pressure 138/82 138/82 Blood Pressure 138/82 [Right] 10/10/18 10/11/18 10/11/18 22:23 04:49 05:08 Temperature 98.3 F Pulse Rate 91 H 79 73 Respiratory 18 Rate Blood Pressure 138/82 126/76 Blood Pressure 126/76 [Right] 10/11/18 06:34 Temperature Pulse Rate 81 Respiratory Rate Blood Pressure 136/74 Blood Pressure [Right] - Exam Breasts: normal Cardiovascular: Regular rate, Normal S1, Normal S2 Lungs: Clear to auscultation Abdomen: Present: normal appearance, soft. Absent: distention, tenderness Uterus: Present: normal FHR: auscultation normal (appropriate for gestational age per most recent monitoring) Uterine Contraction Pattern: Absent Extremities: normal Deep Tendon Reflex Grade: Normal +2 - Labs Labs: Abnormal Labs 10/07/18 10/07/18 10/07/18 23:17 23:17 23:17 WBC 11.1 H RBC 3.34 L Hgb Hct MCHC 35 H Sodium 133 L Carbon Dioxide BUN 6 L Creatinine 0.3 L Glucose Uric Acid 3.0 L AST 157 H ALT 88 H Alkaline Phosphatase 189 H Lactate Dehydrogenase Total Protein 6.1 L Albumin 3.1 L 10/08/18 10/08/18 10/08/18 06:06 07:43 16:04 WBC 12.9 H RBC 3.56 L 3.54 L Hgb Hct MCHC 35 H Sodium 136 L Carbon Dioxide 20 L BUN 4 L Creatinine 0.4 L Glucose 109 H Uric Acid AST 221 H ALT 128 H Alkaline Phosphatase 201 H Lactate Dehydrogenase Total Protein Albumin 3.1 L 10/08/18 10/09/18 10/09/18 16:04 05:10 05:10 WBC 12.0 H RBC 3.46 L Hgb Hct MCHC Sodium Carbon Dioxide BUN Creatinine 0.4 L 0.5 L Glucose Uric Acid 3.1 L 3.4 L AST 120 H 66 H ALT 102 H 78 H Alkaline Phosphatase Lactate Dehydrogenase 335 H 240 H Total Protein Albumin 10/09/18 10/09/18 10/10/18 19:58 19:58 05:43 WBC 15.0 H 13.2 H RBC 3.26 L 3.18 L Hgb 9.9 L Hct 29.3 L MCHC Sodium Carbon Dioxide BUN Creatinine Glucose Uric Acid AST ALT 61 H Alkaline Phosphatase Lactate Dehydrogenase Total Protein Albumin 10/10/18 10/10/18 10/10/18 05:43 17:43 17:43 WBC 14.2 H RBC 3.51 L Hgb Hct MCHC Sodium Carbon Dioxide 21 L BUN 5 L Creatinine 0.4 L 0.5 L Glucose 109 H Uric Acid AST ALT Alkaline Phosphatase 170 H Lactate Dehydrogenase 227 H Total Protein 5.8 L Albumin 3.2 L 10/11/18 10/11/18 05:29 05:29 WBC 12.0 H RBC 3.23 L Hgb 9.9 L Hct 30.0 L MCHC Sodium Carbon Dioxide BUN Creatinine 0.5 L Glucose Uric Acid 3.4 L AST ALT Alkaline Phosphatase Lactate Dehydrogenase 213 H Total Protein Albumin Laboratory Results - last 24 hr 10/10/18 10/10/18 10/11/18 17:43 17:43 05:29 WBC 14.2 H 12.0 H RBC 3.51 L 3.23 L Hgb 10.9 9.9 L Hct 31.9 30.0 L MCV 91 93 MCH 31 31 MCHC 34 33 RDW 14.5 14.6 Plt Count 220 215 Creatinine 0.5 L Estimated GFR > 60 Uric Acid 3.8 AST 33 ALT 49 Lactate Dehydrogenase 227 H 10/11/18 05:29 WBC RBC Hgb Hct MCV MCH MCHC RDW Plt Count Creatinine 0.5 L Estimated GFR > 60 Uric Acid 3.4 L AST 28 ALT 42 Lactate Dehydrogenase 213 H
[2018-10-11] MEDS: COLACE PO PRN (08:43)
--- NOTE | 2018-10-11 08:59 | Ultrasound Report ---
ULTRASOUND OB VELOCIMETRY UMBILICAL ARTERY HISTORY: well-being. TECHNIQUE: Transabdominal ultrasound. Spectral Doppler interrogation was performed on 3 segments of the umbilical cord. FINDINGS: heart rate measures 141 beats per minute. The spectral waveforms are normal and persistent. No evidence for loss or reversal of end-diastolic flow. The resistive index average measures 0.72. The systolic/diastolic ratio average measures 3.62. IMPRESSION: Mildly elevated resistive indices.
--- NOTE | 2018-10-11 08:59 | Ultrasound Report ---
ULTRASOUND OB LIMITED History: well being Technique: Transabdominal ultrasound with Doppler interrogation. Gestation: Single Position: Breech Amniotic Fluid: Normal REBEKAH = 12.2 cm Placenta: Anterior Placental Grade: 2 Heart Rate: 139 BPM
[2018-10-11] MEDS: NORMODYNE PO SCH ×2 (11:11→22:30)
[2018-10-11] MEDS: PRENATAL VITAMIN PO SCH (11:11)
[2018-10-11] MEDS: D5LR 1,000 ML IV SCH ×2 (11:26→21:29)
[2018-10-11] MEDS: PEPCID IV PRN (12:30)
[2018-10-11] MEDS: MYLICON PO PRN (12:33)
[2018-10-11 20:32] LABS: Hematocrit 30.1 % (30.3-42.9); Hemoglobin 10.2 gm/dl (10.1-14.3); Mean Corpuscular HGB Conc 34 % (30-34); Mean Corpuscular Volume 93 fl (79-97); Platelet Count 140 K/mm3 (140-440); Red Blood Count 3.25 M/mm3 (3.65-5.03); Red Cell Distribution Width 14.6 % (13.2-15.2)
[2018-10-11 20:45] LABS: Alanine Aminotransferase 135 units/L (7-56); Uric Acid 3.1 mg/dL (3.5-7.6)
[2018-10-11] MEDS: AMBIEN PO PRN (22:45)
[2018-10-12 05:47] LABS: Hematocrit 27.7 % (30.3-42.9); Hemoglobin 9.4 gm/dl (10.1-14.3); Mean Corpuscular HGB Conc 34 % (30-34); Mean Corpuscular Volume 92 fl (79-97); Platelet Count 123 K/mm3 (140-440); Red Blood Count 3.01 M/mm3 (3.65-5.03); Red Cell Distribution Width 14.7 % (13.2-15.2)
[2018-10-12 06:13] LABS: Alanine Aminotransferase 117 units/L (7-56); Uric Acid 2.9 mg/dL (3.5-7.6)
[2018-10-12] MEDS: APRESOLINE PO SCH ×3 (06:15→22:49)
--- NOTE | 2018-10-12 07:34 | Progress Note ---
Assessment and Plan Pt resting, c/o epigastric pain yesterday resolved with IV pain medication. She denies HENSON or visual changes. LFTs evelated AST 141, ALT 117 this morning and plt now 123. b/p remains between desired parameters. doppler studies yesterday showed no evidence of absent or reversed end diastolic flow. Dr. Zapata aware. awaiting [facility]'s recommendations. Assessment: 1. IUP at 26+3 weeks gestation 2. Maternal HTN w/ superimposed preeclampsia with severe features based on elevated LFT , possible progression to HELLP baseline 24 hr TP 144mg ( 06/28 ), repeat was 354mg ( 09/06) - [facility] 3. SUA 4.Fetus -small perimembranous VSD -s/p [place] echo 09/23 echo at 1 week of life as either in or out pt is advised 5. 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 Brain appeared otherwise norm al. This may be an normal variant but confirmation with an US and MRI are recommended 6. IUGR 7. Fibroids Plan per [facility]: 1. Complete course of steroids (per RN Katherine, she received report that steroid series is complete, but only one dose documented on ) 2. Continue Labetalol and Hydralazine at the current dose Titrate to maintain BP 120-160/80-105mmhg 3. Will need twice weekly testing with Dopplers/REBEKAH (done for 10/11/18) -Start BPP at 27-28 weeks gestation 4. Continue labs q12hr to monitor for further end organ damage , progression to HELLP (ordered series 0600/1800) 5. Advised that delivery is recommended if labs are consistent with HELLP or she becomes symptomatic - Patient Problems (1) 26 weeks gestation of Current Visit: Yes Status: Acute (2) IUGR (intrauterine growth restriction) Current Visit: No Status: Acute (3) Umbilical cord, single artery and vein Current Visit: No Status: Acute (4) Chronic hypertension with superimposed pre-eclampsia Current Visit: No Status: Chronic (5) ventricular septal defect affecting antepartum care of mother Current Visit: No Status: Chronic Qualifiers: Fetus number: single or unspecified fetus Qualified Code(s): O35.8XX0 - Maternal care for other (suspected) abnormality and damage, not applicable or unspecified Subjective - Subjective Date of service: 10/12/18 Principal diagnosis: IUP @ 26w3d w/ CHTN with superimposed PreE Patient reports: movement normal, no new complaints, no loss of fluid, no vaginal bleeding, no contractions, no other (no HENSON, visual changes or epigastric pain) Objective - Vital Signs Vital Signs: Vital Signs - 12hr 10/11/18 10/11/18 10/11/18 20:30 21:16 22:30 Temperature 98.6 F Pulse Rate 93 H 93 H 75 Respiratory 100 H Rate Blood Pressure 133/72 153/76 Blood Pressure 133/72 [Right] 10/11/18 10/12/18 10/12/18 22:45 00:45 06:15 Temperature 98.6 F Pulse Rate 75 98 H 90 Respiratory 18 Rate Blood Pressure 153/76 134/76 Blood Pressure 132/68 [Right] 10/12/18 06:20 Temperature Pulse Rate 90 Respiratory Rate Blood Pressure 134/76 Blood Pressure [Right] - Exam Breasts: normal Cardiovascular: Regular rate Lungs: Clear to auscultation, Normal air movement Abdomen: Present: normal appearance, soft Vulva: both: normal Uterus: Present: normal Uterine Tone Measurement Phase: Resting Extremities: normal Deep Tendon Reflex Grade: Normal +2 - Labs Labs: Abnormal Labs 10/07/18 10/07/18 10/07/18 23:17 23:17 23:17 WBC 11.1 H RBC 3.34 L Hgb Hct MCHC 35 H Plt Count Sodium 133 L Carbon Dioxide BUN 6 L Creatinine 0.3 L Glucose Uric Acid 3.0 L AST 157 H ALT 88 H Alkaline Phosphatase 189 H Lactate Dehydrogenase Total Protein 6.1 L Albumin 3.1 L 10/08/18 10/08/18 10/08/18 06:06 07:43 16:04 WBC 12.9 H RBC 3.56 L 3.54 L Hgb Hct MCHC 35 H Plt Count Sodium 136 L Carbon Dioxide 20 L BUN 4 L Creatinine 0.4 L Glucose 109 H Uric Acid AST 221 H ALT 128 H Alkaline Phosphatase 201 H Lactate Dehydrogenase Total Protein Albumin 3.1 L 10/08/18 10/09/18 10/09/18 16:04 05:10 05:10 WBC 12.0 H RBC 3.46 L Hgb Hct MCHC Plt Count Sodium Carbon Dioxide BUN Creatinine 0.4 L 0.5 L Glucose Uric Acid 3.1 L 3.4 L AST 120 H 66 H ALT 102 H 78 H Alkaline Phosphatase Lactate Dehydrogenase 335 H 240 H Total Protein Albumin 10/09/18 10/09/18 10/10/18 19:58 19:58 05:43 WBC 15.0 H 13.2 H RBC 3.26 L 3.18 L Hgb 9.9 L Hct 29.3 L MCHC Plt Count Sodium Carbon Dioxide BUN Creatinine Glucose Uric Acid AST ALT 61 H Alkaline Phosphatase Lactate Dehydrogenase Total Protein Albumin 10/10/18 10/10/18 10/10/18 05:43 17:43 17:43 WBC 14.2 H RBC 3.51 L Hgb Hct MCHC Plt Count Sodium Carbon Dioxide 21 L BUN 5 L Creatinine 0.4 L 0.5 L Glucose 109 H Uric Acid AST ALT Alkaline Phosphatase 170 H Lactate Dehydrogenase 227 H Total Protein 5.8 L Albumin 3.2 L 10/11/18 10/11/18 10/11/18 05:29 05:29 19:46 WBC 12.0 H RBC 3.23 L 3.25 L Hgb 9.9 L Hct 30.0 L 30.1 L MCHC Plt Count Sodium Carbon Dioxide BUN Creatinine 0.5 L Glucose Uric Acid 3.4 L AST ALT Alkaline Phosphatase Lactate Dehydrogenase 213 H Total Protein Albumin 10/11/18 10/12/18 10/12/18 19:46 05:18 05:18 WBC RBC 3.01 L Hgb 9.4 L Hct 27.7 L MCHC Plt Count 123 L Sodium Carbon Dioxide BUN Creatinine 0.4 L 0.3 L Glucose Uric Acid 3.1 L 2.9 L AST 192 H 141 H ALT 135 H 117 H Alkaline Phosphatase Lactate Dehydrogenase 352 H 296 H Total Protein Albumin Laboratory Results - last 24 hr 10/11/18 10/11/18 10/12/18 19:46 19:46 05:18 WBC 10.7 10.1 RBC 3.25 L 3.01 L Hgb 10.2 9.4 L Hct 30.1 L 27.7 L MCV 93 92 MCH 31 31 MCHC 34 34 RDW 14.6 14.7 Plt Count 140 123 L Creatinine 0.4 L Estimated GFR > 60 Uric Acid 3.1 L AST 192 H ALT 135 H Lactate Dehydrogenase 352 H 10/12/18 05:18 WBC RBC Hgb Hct MCV MCH MCHC RDW Plt Count Creatinine 0.3 L Estimated GFR > 60 Uric Acid 2.9 L AST 141 H ALT 117 H Lactate Dehydrogenase 296 H
--- NOTE | 2018-10-12 10:10 | Progress Note ---
Assessment and Plan Assessment and Plan Assessment: 1. IUP at 26 3/7 weeks gestation 2. Maternal HTN w/ superimposed preeclampsia with severe features based on elevated LFT LFT now trending up, plt count has remained normal baseline 24 hr TP 144mg ( 06/28 ), repeat was 354mg ( 09/06) - [facility] 3. SUA 4.Fetus -small perimembranous VSD -s/p [place] echo 09/23 echo at 1 week of life as either in or out pt is advised 5. 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 Brain appeared otherwise normal. This may be an normal variant but confirmation with an US and MRI are recommended 6. IUGR 7. Fibroids 8. s/p NICU consult and course of betamethasone Rec: as per MFM0 1. 2. Continue Labetalol and Hydralazine at the current dose Titrate to maintain BP 120-160/80-105mmhg 3. Continue twice weekly testing with Dopplers.[email or web address] Start BPP at 27-28 weeks gestation 4. Repeat CBC/CMP in 12 hours to monitor for further end organ damage , progression to HELLP 5. Advised that delivery is advised no later than 34 0/7 weeks, a sooner delivery is advised if labs are consistent with HELLP, renal failure, non reassuring testing - Patient Problems (1) Elevated LFTs Current Visit: Yes Status: Acute (2) HTN in , chronic Current Visit: No Status: Acute (3) IUGR (intrauterine growth restriction) Current Visit: No Status: Acute (4) Umbilical cord, single artery and vein Current Visit: No Status: Acute (5) Chronic hypertension with superimposed pre-eclampsia Current Visit: No Status: Chronic (6) ventricular septal defect affecting antepartum care of mother Current Visit: No Status: Chronic Qualifiers: Fetus number: single or unspecified fetus Qualified Code(s): O35.8XX0 - Maternal care for other (suspected) abnormality and damage, not applicable or unspecified Subjective - Subjective Date of service: 10/12/18 Principal diagnosis: IUP @ 26w3d w/ CHTN with superimposed PreE Interval history: Labs this am reviewed. I d/w changes in labs and also d/w Dr. Albarran. Plan now is to follow and repeat in 12 hrs to see if there is a consistent trend/change. I d/w possibility of remaining another few days to weeks or delivery tomorrow pending labs and MFM recommendations. Several minutes spent at bedside addressing pt many concerns and questions. All of which were answered and pt states clear understanding of plan of care. She denies any RUQ pain, headache, blurry vision but does c/o constipation. I offered ducolax supp and she declines at this time stating she will con't the po meds. I advised that the iron she is taking could be causing the constipation. She again expressed understanding. I d/w pt making NPO after midnight. Patient reports: movement normal, no new complaints, no loss of fluid, no vaginal bleeding, no contractions, no other (no HENSON, visual changes or epigastric pain) Objective - Vital Signs Vital Signs: Vital Signs - 12hr 10/11/18 10/11/18 10/12/18 22:30 22:45 00:45 Temperature 98.6 F Pulse Rate 75 75 98 H Respiratory 18 Rate Blood Pressure 153/76 153/76 Blood Pressure 132/68 [Right] 10/12/18 10/12/18 10/12/18 06:15 06:20 08:30 Temperature Pulse Rate 90 90 86 Respiratory Rate Blood Pressure 134/76 134/76 175/98 Blood Pressure [Right] 10/12/18 08:33 Temperature 98.1 F Pulse Rate 86 Respiratory 18 Rate Blood Pressure Blood Pressure 175/98 [Right] - Exam Cardiovascular: Normal S1, Normal S2 Lungs: Normal air movement Abdomen: Present: normal appearance, soft. Absent: distention, tenderness, guarding FHR: category 1 Uterine Contraction Pattern: Absent - Labs Labs: Abnormal Labs 10/07/18 10/07/18 10/07/18 23:17 23:17 23:17 WBC 11.1 H RBC 3.34 L Hgb Hct MCHC 35 H Plt Count Sodium 133 L Carbon Dioxide BUN 6 L Creatinine 0.3 L Glucose Uric Acid 3.0 L AST 157 H ALT 88 H Alkaline Phosphatase 189 H Lactate Dehydrogenase Total Protein 6.1 L Albumin 3.1 L 10/08/18 10/08/18 10/08/18 06:06 07:43 16:04 WBC 12.9 H RBC 3.56 L 3.54 L Hgb Hct MCHC 35 H Plt Count Sodium 136 L Carbon Dioxide 20 L BUN 4 L Creatinine 0.4 L Glucose 109 H Uric Acid AST 221 H ALT 128 H Alkaline Phosphatase 201 H Lactate Dehydrogenase Total Protein Albumin 3.1 L 10/08/18 10/09/18 10/09/18 16:04 05:10 05:10 WBC 12.0 H RBC 3.46 L Hgb Hct MCHC Plt Count Sodium Carbon Dioxide BUN Creatinine 0.4 L 0.5 L Glucose Uric Acid 3.1 L 3.4 L AST 120 H 66 H ALT 102 H 78 H Alkaline Phosphatase Lactate Dehydrogenase 335 H 240 H Total Protein Albumin 10/09/18 10/09/18 10/10/18 19:58 19:58 05:43 WBC 15.0 H 13.2 H RBC 3.26 L 3.18 L Hgb 9.9 L Hct 29.3 L MCHC Plt Count Sodium Carbon Dioxide BUN Creatinine Glucose Uric Acid AST ALT 61 H Alkaline Phosphatase Lactate Dehydrogenase Total Protein Albumin 10/10/18 10/10/18 10/10/18 05:43 17:43 17:43 WBC 14.2 H RBC 3.51 L Hgb Hct MCHC Plt Count Sodium Carbon Dioxide 21 L BUN 5 L Creatinine 0.4 L 0.5 L Glucose 109 H Uric Acid AST ALT Alkaline Phosphatase 170 H Lactate Dehydrogenase 227 H Total Protein 5.8 L Albumin 3.2 L 10/11/18 10/11/18 10/11/18 05:29 05:29 19:46 WBC 12.0 H RBC 3.23 L 3.25 L Hgb 9.9 L Hct 30.0 L 30.1 L MCHC Plt Count Sodium Carbon Dioxide BUN Creatinine 0.5 L Glucose Uric Acid 3.4 L AST ALT Alkaline Phosphatase Lactate Dehydrogenase 213 H Total Protein Albumin 10/11/18 10/12/18 10/12/18 19:46 05:18 05:18 WBC RBC 3.01 L Hgb 9.4 L Hct 27.7 L MCHC Plt Count 123 L Sodium Carbon Dioxide BUN Creatinine 0.4 L 0.3 L Glucose Uric Acid 3.1 L 2.9 L AST 192 H 141 H ALT 135 H 117 H Alkaline Phosphatase Lactate Dehydrogenase 352 H 296 H Total Protein Albumin Laboratory Results - last 24 hr 10/11/18 10/11/18 10/12/18 19:46 19:46 05:18 WBC 10.7 10.1 RBC 3.25 L 3.01 L Hgb 10.2 9.4 L Hct 30.1 L 27.7 L MCV 93 92 MCH 31 31 MCHC 34 34 RDW 14.6 14.7 Plt Count 140 123 L Creatinine 0.4 L Estimated GFR > 60 Uric Acid 3.1 L AST 192 H ALT 135 H Lactate Dehydrogenase 352 H 10/12/18 05:18 WBC RBC Hgb Hct MCV MCH MCHC RDW Plt Count Creatinine 0.3 L Estimated GFR > 60 Uric Acid 2.9 L AST 141 H ALT 117 H Lactate Dehydrogenase 296 H
[2018-10-12] MEDS: PRENATAL VITAMIN PO SCH ×2 (10:45→11:56)
--- NOTE | 2018-10-12 10:49 | Progress Note ---
Assessment and Plan Assessment: 1. IUP at 26 3/7 weeks gestation 2. Maternal HTN w/ superimposed preeclampsia with severe features based on elevated LFT LFT now trending up, plt count has remained normal baseline 24 hr TP 144mg ( 06/28 ), repeat was 354mg ( 09/06) - [facility] 3. SUA 4.Fetus -small perimembranous VSD -s/p [place] echo 09/23 echo at 1 week of life as either in or out pt is advised 5. 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 Brain appeared otherwise normal. This may be an normal variant but confirmation with an US and MRI are recommended 6. IUGR 7. Fibroids 8. s/p NICU consult and course of betamethasone Rec: 1. 2. Continue Labetalol and Hydralazine at the current dose Titrate to maintain BP 120-160/80-105mmhg 3. Continue twice weekly testing with Dopplers.[email or web address] Start BPP at 27-28 weeks gestation 4. Repeat CBC/CMP in 12 hours to monitor for further end organ damage , progression to HELLP 5. Advised that delivery is advised no later than 34 0/7 weeks, a sooner delivery is advised if labs are consistent with HELLP, renal failure, non reassuring testing Subjective - Subjective Principal diagnosis: IUP @ 26w3d w/ CHTN with superimposed PreE Interval history: No complaints- denies headaches, visual changes, chest pain, SOB or RUQ pain. Good movement. Patient reports: movement normal, no new complaints, no loss of fluid, no vaginal bleeding, no contractions, no other (no HENSON, visual changes or epigastric pain) Objective - Vital Signs Vital Signs: Vital Signs - 12hr 10/12/18 10/12/18 10/12/18 00:45 06:15 06:20 Temperature 98.6 F Pulse Rate 98 H 90 90 Respiratory 18 Rate Blood Pressure 134/76 134/76 Blood Pressure 132/68 [Right] 10/12/18 10/12/18 08:30 08:33 Temperature 98.1 F Pulse Rate 86 86 Respiratory 18 Rate Blood Pressure 175/98 Blood Pressure 175/98 [Right] - Exam Abdomen: Present: soft - Labs Labs: Abnormal Labs 10/07/18 10/07/18 10/07/18 23:17 23:17 23:17 WBC 11.1 H RBC 3.34 L Hgb Hct MCHC 35 H Plt Count Sodium 133 L Carbon Dioxide BUN 6 L Creatinine 0.3 L Glucose Uric Acid 3.0 L AST 157 H ALT 88 H Alkaline Phosphatase 189 H Lactate Dehydrogenase Total Protein 6.1 L Albumin 3.1 L 10/08/18 10/08/18 10/08/18 06:06 07:43 16:04 WBC 12.9 H RBC 3.56 L 3.54 L Hgb Hct MCHC 35 H Plt Count Sodium 136 L Carbon Dioxide 20 L BUN 4 L Creatinine 0.4 L Glucose 109 H Uric Acid AST 221 H ALT 128 H Alkaline Phosphatase 201 H Lactate Dehydrogenase Total Protein Albumin 3.1 L 10/08/18 10/09/18 10/09/18 16:04 05:10 05:10 WBC 12.0 H RBC 3.46 L Hgb Hct MCHC Plt Count Sodium Carbon Dioxide BUN Creatinine 0.4 L 0.5 L Glucose Uric Acid 3.1 L 3.4 L AST 120 H 66 H ALT 102 H 78 H Alkaline Phosphatase Lactate Dehydrogenase 335 H 240 H Total Protein Albumin 10/09/18 10/09/18 10/10/18 19:58 19:58 05:43 WBC 15.0 H 13.2 H RBC 3.26 L 3.18 L Hgb 9.9 L Hct 29.3 L MCHC Plt Count Sodium Carbon Dioxide BUN Creatinine Glucose Uric Acid AST ALT 61 H Alkaline Phosphatase Lactate Dehydrogenase Total Protein Albumin 10/10/18 10/10/18 10/10/18 05:43 17:43 17:43 WBC 14.2 H RBC 3.51 L Hgb Hct MCHC Plt Count Sodium Carbon Dioxide 21 L BUN 5 L Creatinine 0.4 L 0.5 L Glucose 109 H Uric Acid AST ALT Alkaline Phosphatase 170 H Lactate Dehydrogenase 227 H Total Protein 5.8 L Albumin 3.2 L 10/11/18 10/11/18 10/11/18 05:29 05:29 19:46 WBC 12.0 H RBC 3.23 L 3.25 L Hgb 9.9 L Hct 30.0 L 30.1 L MCHC Plt Count Sodium Carbon Dioxide BUN Creatinine 0.5 L Glucose Uric Acid 3.4 L AST ALT Alkaline Phosphatase Lactate Dehydrogenase 213 H Total Protein Albumin 10/11/18 10/12/18 10/12/18 19:46 05:18 05:18 WBC RBC 3.01 L Hgb 9.4 L Hct 27.7 L MCHC Plt Count 123 L Sodium Carbon Dioxide BUN Creatinine 0.4 L 0.3 L Glucose Uric Acid 3.1 L 2.9 L AST 192 H 141 H ALT 135 H 117 H Alkaline Phosphatase Lactate Dehydrogenase 352 H 296 H Total Protein Albumin Laboratory Results - last 24 hr 10/11/18 10/11/18 10/12/18 19:46 19:46 05:18 WBC 10.7 10.1 RBC 3.25 L 3.01 L Hgb 10.2 9.4 L Hct 30.1 L 27.7 L MCV 93 92 MCH 31 31 MCHC 34 34 RDW 14.6 14.7 Plt Count 140 123 L Creatinine 0.4 L Estimated GFR > 60 Uric Acid 3.1 L AST 192 H ALT 135 H Lactate Dehydrogenase 352 H 10/12/18 05:18 WBC RBC Hgb Hct MCV MCH MCHC RDW Plt Count Creatinine 0.3 L Estimated GFR > 60 Uric Acid 2.9 L AST 141 H ALT 117 H Lactate Dehydrogenase 296 H
[2018-10-12] MEDS: NORMODYNE PO SCH ×2 (11:58→22:50)
[2018-10-12] MEDS: COLACE PO PRN (11:59)
[2018-10-12] MEDS: MYLICON PO PRN (12:10)
[2018-10-12 19:13] LABS: Hematocrit 30.6 % (30.3-42.9); Hemoglobin 10.2 gm/dl (10.1-14.3); Mean Corpuscular HGB Conc 33 % (30-34); Mean Corpuscular Volume 93 fl (79-97); Platelet Count 119 K/mm3 (140-440); Red Cell Distribution Width 14.7 % (13.2-15.2)
[2018-10-12 19:33] LABS: Alanine Aminotransferase 115 units/L (7-56)
[2018-10-12] MEDS: D5LR 1,000 ML IV SCH (21:04)
[2018-10-12] MEDS: AMBIEN PO PRN (22:50)
[2018-10-13 05:12] LABS: Hematocrit 28.7 % (30.3-42.9); Hemoglobin 9.7 gm/dl (10.1-14.3); Mean Corpuscular HGB Conc 34 % (30-34); Mean Corpuscular Volume 92 fl (79-97); Platelet Count 115 K/mm3 (140-440); Red Blood Count 3.12 M/mm3 (3.65-5.03); Red Cell Distribution Width 14.6 % (13.2-15.2)
[2018-10-13 05:26] LABS: Alanine Aminotransferase 101 units/L (7-56)
[2018-10-13] MEDS: APRESOLINE PO SCH ×3 (06:00→22:05)
[2018-10-13 06:49] LABS: Uric Acid 2.8 mg/dL (3.5-7.6)
--- NOTE | 2018-10-13 06:58 | Event Note ---
Date: 10/13/18 Labs reviewed and platlets remain in low range but not much change since yesterday going from were 123 to 119, to 115 this am. LFTS remain elevated by have trended down in the last 24 hrs. H/H has remained stable. Will closely monitor and await recommendations from [facility] regarding delivery plans. Pt has no sx at this time and bp is in desired ranges. She is npo at this time pending recommendations from [facility] this am.
[2018-10-13] MEDS: NORMODYNE PO SCH ×2 (09:45→22:08)
[2018-10-13] MEDS: PRENATAL VITAMIN PO SCH (09:45)
[2018-10-13] MEDS: COLACE PO PRN (10:10)
--- NOTE | 2018-10-13 10:21 | Progress Note ---
Assessment and Plan Patient in restroom attempting to produce bowel movement, states she has been very consitpated and would like something to help her constipation. Patient requests milk of magnesia as she has taken this before. Suggested she take ordered colace as needed as well and increase water intake throughout the day. Patient denies any headache, visual disturbances, RUQ or epigastric pain. Assessment is WNL. VSSAF. Reviewed recent labs with patient and plan to continue current plan of care. Patient verbalizes understanding and agrees with POC. Subjective - Subjective Date of service: 10/13/18 Principal diagnosis: IUP @ 26w4d w/ CHTN with superimposed PreE Patient reports: movement normal, no new complaints, no loss of fluid, no vaginal bleeding, no contractions, no other (no HENSON, visual changes or epigastric pain) Objective - Vital Signs Vital Signs: Vital Signs - 12hr 10/12/18 10/12/18 10/12/18 22:48 22:49 22:50 Temperature Pulse Rate 88 88 88 Respiratory Rate Blood Pressure 137/86 137/86 137/86 10/13/18 10/13/18 10/13/18 06:00 08:08 08:20 Temperature 98.3 F Pulse Rate 75 87 Respiratory 18 Rate Blood Pressure 159/75 141/81 10/13/18 10/13/18 10/13/18 09:45 09:47 09:49 Temperature Pulse Rate 82 82 80 Respiratory Rate Blood Pressure 152/73 167/96 152/73 - Exam Breasts: normal Cardiovascular: Regular rate, Normal S1, Normal S2 Lungs: Clear to auscultation Abdomen: Present: normal appearance, soft. Absent: distention, tenderness Vulva: both: normal Uterus: Present: normal FHR: other (appropriate for gestational age per last monitoring session) Uterine Contraction Monitor Mode: Palpation (no contractions noted by palpation) Uterine Contraction Pattern: Absent Extremities: normal Deep Tendon Reflex Grade: Normal +2 - Labs Labs: Abnormal Labs 10/07/18 10/07/18 10/07/18 23:17 23:17 23:17 WBC 11.1 H RBC 3.34 L Hgb Hct MCHC 35 H Plt Count Sodium 133 L Carbon Dioxide BUN 6 L Creatinine 0.3 L Glucose Uric Acid 3.0 L AST 157 H ALT 88 H Alkaline Phosphatase 189 H Lactate Dehydrogenase Total Protein 6.1 L Albumin 3.1 L 10/08/18 10/08/18 10/08/18 06:06 07:43 16:04 WBC 12.9 H RBC 3.56 L 3.54 L Hgb Hct MCHC 35 H Plt Count Sodium 136 L Carbon Dioxide 20 L BUN 4 L Creatinine 0.4 L Glucose 109 H Uric Acid AST 221 H ALT 128 H Alkaline Phosphatase 201 H Lactate Dehydrogenase Total Protein Albumin 3.1 L 10/08/18 10/09/18 10/09/18 16:04 05:10 05:10 WBC 12.0 H RBC 3.46 L Hgb Hct MCHC Plt Count Sodium Carbon Dioxide BUN Creatinine 0.4 L 0.5 L Glucose Uric Acid 3.1 L 3.4 L AST 120 H 66 H ALT 102 H 78 H Alkaline Phosphatase Lactate Dehydrogenase 335 H 240 H Total Protein Albumin 10/09/18 10/09/18 10/10/18 19:58 19:58 05:43 WBC 15.0 H 13.2 H RBC 3.26 L 3.18 L Hgb 9.9 L Hct 29.3 L MCHC Plt Count Sodium Carbon Dioxide BUN Creatinine Glucose Uric Acid AST ALT 61 H Alkaline Phosphatase Lactate Dehydrogenase Total Protein Albumin 10/10/18 10/10/18 10/10/18 05:43 17:43 17:43 WBC 14.2 H RBC 3.51 L Hgb Hct MCHC Plt Count Sodium Carbon Dioxide 21 L BUN 5 L Creatinine 0.4 L 0.5 L Glucose 109 H Uric Acid AST ALT Alkaline Phosphatase 170 H Lactate Dehydrogenase 227 H Total Protein 5.8 L Albumin 3.2 L 10/11/18 10/11/18 10/11/18 05:29 05:29 19:46 WBC 12.0 H RBC 3.23 L 3.25 L Hgb 9.9 L Hct 30.0 L 30.1 L MCHC Plt Count Sodium Carbon Dioxide BUN Creatinine 0.5 L Glucose Uric Acid 3.4 L AST ALT Alkaline Phosphatase Lactate Dehydrogenase 213 H Total Protein Albumin 10/11/18 10/12/18 10/12/18 19:46 05:18 05:18 WBC RBC 3.01 L Hgb 9.4 L Hct 27.7 L MCHC Plt Count 123 L Sodium Carbon Dioxide BUN Creatinine 0.4 L 0.3 L Glucose Uric Acid 3.1 L 2.9 L AST 192 H 141 H ALT 135 H 117 H Alkaline Phosphatase Lactate Dehydrogenase 352 H 296 H Total Protein Albumin 10/12/18 10/12/18 10/13/18 18:59 18:59 04:45 WBC 12.2 H 12.4 H RBC 3.30 L 3.12 L Hgb 9.7 L Hct 28.7 L MCHC Plt Count 119 L 115 L Sodium Carbon Dioxide BUN Creatinine 0.5 L D Glucose Uric Acid 3.0 L AST 101 H ALT 115 H Alkaline Phosphatase Lactate Dehydrogenase 293 H Total Protein Albumin 10/13/18 04:45 WBC RBC Hgb Hct MCHC Plt Count Sodium Carbon Dioxide BUN Creatinine 0.3 L Glucose Uric Acid 2.8 L AST 79 H ALT 101 H Alkaline Phosphatase Lactate Dehydrogenase 252 H Total Protein Albumin Laboratory Results - last 24 hr 10/12/18 10/12/18 10/13/18 18:59 18:59 04:45 WBC 12.2 H 12.4 H RBC 3.30 L 3.12 L Hgb 10.2 9.7 L Hct 30.6 28.7 L MCV 93 92 MCH 31 31 MCHC 33 34 RDW 14.7 14.6 Plt Count 119 L 115 L Creatinine 0.5 L D Estimated GFR > 60 Uric Acid 3.0 L AST 101 H ALT 115 H Lactate Dehydrogenase 293 H 10/13/18 04:45 WBC RBC Hgb Hct MCV MCH MCHC RDW Plt Count Creatinine 0.3 L Estimated GFR > 60 Uric Acid 2.8 L AST 79 H ALT 101 H Lactate Dehydrogenase 252 H
--- NOTE | 2018-10-13 11:34 | Event Note ---
Date: 10/13/18 Agree with MW exam and note. pt currently is w/o sx of headache, ruq pain. blurry vision. She does c/o abdominal pain and constipation and request meds which have been ordered. I d/w Dr. Albarran pt recent labs and slight trending downward of platelets and slight improvement, though still elevated of LFTs. The plan at this time is expectant management as pt has no sx though she has features of HELLP. Next set of labs are due at 1800. Will follow and adjust care accordingly. Pt is awre of plan of care and all questions were addressed and answered.
[2018-10-13 17:59] LABS: Hematocrit 32.3 % (30.3-42.9); Mean Corpuscular HGB Conc 34 % (30-34); Mean Corpuscular Volume 92 fl (79-97); Platelet Count 118 K/mm3 (140-440); Red Blood Count 3.53 M/mm3 (3.65-5.03); Red Cell Distribution Width 14.8 % (13.2-15.2)
[2018-10-13 18:25] LABS: Alanine Aminotransferase 133 units/L (7-56)
[2018-10-13 18:53] LABS: Uric Acid 2.8 mg/dL (3.5-7.6)
[2018-10-13] MEDS: MILK OF MAGNESIA PO PRN (22:13)
[2018-10-14] MEDS: APRESOLINE PO SCH ×3 (06:10→21:49)
[2018-10-14 06:11] LABS: Hematocrit 28.8 % (30.3-42.9); Hemoglobin 9.8 gm/dl (10.1-14.3); Mean Corpuscular HGB Conc 34 % (30-34); Mean Corpuscular Volume 92 fl (79-97); Platelet Count 103 K/mm3 (140-440); Red Blood Count 3.14 M/mm3 (3.65-5.03); Red Cell Distribution Width 14.6 % (13.2-15.2)
--- NOTE | 2018-10-14 06:18 | Progress Note ---
Assessment and Plan Pt resting when I made rounds BP 120/70s Pt's only c/o this AM is the epigastric area pain. Will consult with . REBEKAH and Dopplers ordered for this AM. Plt Ct this morning 103 LFT's lower than last evening but remain in the elevated range. Pt is NPO. [facility] called to give report Assessment: 1. IUP at 26 5/7 weeks gestation 2. Maternal HTN w/ superimposed preeclampsia with severe features based on elevated LFT LFT now trending up, plt count this AM 103 low 3. SUA 4.Fetus -small perimembranous VSD -s/p [place] echo 09/23 echo at 1 week of life as either in or out pt is advised 5. Suspected Dandy Walker Variant - [place] MRI 09/30/2018 6. IUGR 7. Fibroids 8. s/p NICU consult; ANDREA completed [facility] Recommendations: Rec: 1. 2. Continue Labetalol and Hydralazine at the current dose Titrate to maintain BP 120-160/80-105mmhg 3. Continue twice weekly testing with Dopplers.[email or web address] - Ordered to be done today Start BPP at 27-28 weeks gestation 4. Repeat CBC/CMP in 12 hours to monitor for further end organ damage , progression to HELLP 5. Advised that delivery is advised no later than 34 0/7 weeks, a sooner delivery is advised if labs are consistent with HELLP, renal failure, non reassuring testing - Patient Problems (1) 26 weeks gestation of Onset Date: ~10/14/18 Current Visit: Yes Status: Acute (2) Elevated LFTs Onset Date: ~10/14/18 Current Visit: Yes Status: Acute Subjective - Subjective Date of service: 10/14/18 (pt c/o pain epigastric area.) Principal diagnosis: IUP @ 26w5d w/ CHTN with superimposed PreE Patient reports: movement normal, no new complaints, no loss of fluid, no vaginal bleeding, no contractions, no other (no HENSON, visual changes or epigastric pain) Objective - Vital Signs Vital Signs: Vital Signs - 12hr 10/13/18 10/13/18 10/13/18 20:20 20:24 22:05 Temperature 97.7 F Pulse Rate 88 90 Respiratory 18 Rate Blood Pressure 135/69 146/83 10/13/18 10/13/18 10/14/18 22:06 22:08 00:22 Temperature 98.4 F Pulse Rate 90 90 87 Respiratory 18 Rate Blood Pressure 146/83 146/83 132/70 10/14/18 10/14/18 10/14/18 04:24 04:25 06:09 Temperature 98.8 F Pulse Rate 79 97 H Respiratory 18 Rate Blood Pressure 136/73 122/76 10/14/18 06:10 Temperature Pulse Rate 97 H Respiratory Rate Blood Pressure 122/76 - Exam Breasts: deferred Cardiovascular: Regular rate Lungs: Normal air movement Abdomen: Present: normal appearance, soft, other (pt c/o pain in epigastric region that has been unresolved with position change nor medications). Absent: distention, tenderness Uterus: Present: normal, tenderness (just on top of fundus) FHR: auscultation normal (last NST wnl) Uterine Contraction Pattern: Absent Uterine Tone Measurement Phase: Resting Extremities: edema Deep Tendon Reflex Grade: Normal +2 - Labs Labs: Abnormal Labs 10/07/18 10/07/18 10/07/18 23:17 23:17 23:17 WBC 11.1 H RBC 3.34 L Hgb Hct MCHC 35 H Plt Count Sodium 133 L Carbon Dioxide BUN 6 L Creatinine 0.3 L Glucose Uric Acid 3.0 L AST 157 H ALT 88 H Alkaline Phosphatase 189 H Lactate Dehydrogenase Total Protein 6.1 L Albumin 3.1 L 10/08/18 10/08/18 10/08/18 06:06 07:43 16:04 WBC 12.9 H RBC 3.56 L 3.54 L Hgb Hct MCHC 35 H Plt Count Sodium 136 L Carbon Dioxide 20 L BUN 4 L Creatinine 0.4 L Glucose 109 H Uric Acid AST 221 H ALT 128 H Alkaline Phosphatase 201 H Lactate Dehydrogenase Total Protein Albumin 3.1 L 10/08/18 10/09/18 10/09/18 16:04 05:10 05:10 WBC 12.0 H RBC 3.46 L Hgb Hct MCHC Plt Count Sodium Carbon Dioxide BUN Creatinine 0.4 L 0.5 L Glucose Uric Acid 3.1 L 3.4 L AST 120 H 66 H ALT 102 H 78 H Alkaline Phosphatase Lactate Dehydrogenase 335 H 240 H Total Protein Albumin 10/09/18 10/09/18 10/10/18 19:58 19:58 05:43 WBC 15.0 H 13.2 H RBC 3.26 L 3.18 L Hgb 9.9 L Hct 29.3 L MCHC Plt Count Sodium Carbon Dioxide BUN Creatinine Glucose Uric Acid AST ALT 61 H Alkaline Phosphatase Lactate Dehydrogenase Total Protein Albumin 10/10/18 10/10/18 10/10/18 05:43 17:43 17:43 WBC 14.2 H RBC 3.51 L Hgb Hct MCHC Plt Count Sodium Carbon Dioxide 21 L BUN 5 L Creatinine 0.4 L 0.5 L Glucose 109 H Uric Acid AST ALT Alkaline Phosphatase 170 H Lactate Dehydrogenase 227 H Total Protein 5.8 L Albumin 3.2 L 10/11/18 10/11/18 10/11/18 05:29 05:29 19:46 WBC 12.0 H RBC 3.23 L 3.25 L Hgb 9.9 L Hct 30.0 L 30.1 L MCHC Plt Count Sodium Carbon Dioxide BUN Creatinine 0.5 L Glucose Uric Acid 3.4 L AST ALT Alkaline Phosphatase Lactate Dehydrogenase 213 H Total Protein Albumin 10/11/18 10/12/18 10/12/18 19:46 05:18 05:18 WBC RBC 3.01 L Hgb 9.4 L Hct 27.7 L MCHC Plt Count 123 L Sodium Carbon Dioxide BUN Creatinine 0.4 L 0.3 L Glucose Uric Acid 3.1 L 2.9 L AST 192 H 141 H ALT 135 H 117 H Alkaline Phosphatase Lactate Dehydrogenase 352 H 296 H Total Protein Albumin 10/12/18 10/12/18 10/13/18 18:59 18:59 04:45 WBC 12.2 H 12.4 H RBC 3.30 L 3.12 L Hgb 9.7 L Hct 28.7 L MCHC Plt Count 119 L 115 L Sodium Carbon Dioxide BUN Creatinine 0.5 L D Glucose Uric Acid 3.0 L AST 101 H ALT 115 H Alkaline Phosphatase Lactate Dehydrogenase 293 H Total Protein Albumin 10/13/18 10/13/18 10/13/18 04:45 17:29 17:29 WBC 13.2 H RBC 3.53 L Hgb Hct MCHC Plt Count 118 L Sodium Carbon Dioxide BUN Creatinine 0.3 L 0.4 L Glucose Uric Acid 2.8 L 2.8 L AST 79 H 125 H ALT 101 H 133 H Alkaline Phosphatase Lactate Dehydrogenase 252 H 346 H Total Protein Albumin 10/14/18 05:54 WBC 12.1 H RBC 3.14 L Hgb 9.8 L Hct 28.8 L MCHC Plt Count 103 L Sodium Carbon Dioxide BUN Creatinine Glucose Uric Acid AST ALT Alkaline Phosphatase Lactate Dehydrogenase Total Protein Albumin Laboratory Results - last 24 hr 10/13/18 10/13/18 10/13/18 04:45 17:29 17:29 WBC 13.2 H RBC 3.53 L Hgb 11.0 Hct 32.3 MCV 92 MCH 31 MCHC 34 RDW 14.8 Plt Count 118 L Creatinine 0.4 L Estimated GFR > 60 Uric Acid 2.8 L 2.8 L AST 125 H ALT 133 H Lactate Dehydrogenase 252 H 346 H 10/14/18 05:54 WBC 12.1 H RBC 3.14 L Hgb 9.8 L Hct 28.8 L MCV 92 MCH 31 MCHC 34 RDW 14.6 Plt Count 103 L Creatinine Estimated GFR Uric Acid AST ALT Lactate Dehydrogenase
[2018-10-14 06:42] LABS: Alanine Aminotransferase 118 units/L (7-56)
--- NOTE | 2018-10-14 08:52 | Event Note ---
Date: 10/14/18 (consulted [facility]) recommends stat repeat on CBC,CMP and Coags. NICU notified of pending delivery today. Anesthesia made aware also.
[2018-10-14 10:27] LABS: Alanine Aminotransferase 129 units/L (7-56); BUN/Creatinine Ratio 8; Blood Urea Nitrogen 3 mg/dL (7-17); Calcium 8.8 mg/dL (8.4-10.2); Hemolysis Index 10
[2018-10-14 10:34] LABS: Basophils % (Auto) 0.4 % (0.0-1.8); Eosinophils # (Auto) 0.2 K/mm3 (0.0-0.4); Eosinophils % (Auto) 1.3 % (0.0-4.3); Hematocrit 31.6 % (30.3-42.9); Hemoglobin 10.6 gm/dl (10.1-14.3); Lymphocytes # (Auto) 2.6 K/mm3 (1.2-5.4); Lymphocytes % (Auto) 21.8 % (13.4-35.0); Mean Corpuscular HGB Conc 34 % (30-34); Mean Corpuscular Volume 92 fl (79-97); Monocytes # (Auto) 0.9 K/mm3 (0.0-0.8); Monocytes % (Auto) 7.7 % (0.0-7.3); Platelet Count 106 K/mm3 (140-440); Red Blood Count 3.43 M/mm3 (3.65-5.03)
[2018-10-14] MEDS: NORMODYNE PO SCH ×2 (10:42→21:48)
[2018-10-14] MEDS: PRENATAL VITAMIN PO SCH (10:42)
[2018-10-14] MEDS: COLACE PO PRN ×2 (10:42→21:47)
[2018-10-14 10:43] LABS: INR 0.86 (0.87-1.13)
[2018-10-14 10:44] LABS: Partial Thromboplastin Time 24.4 Sec. (24.2-36.6)
[2018-10-14] MEDS: PEPCID IV PRN (12:05)
--- NOTE | 2018-10-14 13:47 | Ultrasound Report ---
OB LIMITED INDICATION: well being. COMPARISON: 10/11/2018 TECHNIQUE: Transabdominal grayscale ultrasound with Doppler interrogation. Gestation: Cast Position: Breech Amniotic Fluid: WNL (7-24 cm) REBEKAH = 8.6 cm Heart Rate: 150 BPM CONCLUSION: Findings, as above.
--- NOTE | 2018-10-14 13:51 | Ultrasound Report ---
ULTRASOUND OB VELOCIMETRY UMBILICAL ARTERY: HISTORY: well being. COMPARISON: 10/11/2018. FINDINGS: Transabdominal imaging with spectral Doppler interrogation. 3 separate segments of the cord were evaluated. heart rate measures 156 beats per minute. Free loop S/D ratio in the examined loops are 2.74, 2.98 and 3.65 with average S/D ratio = 3.09. Normal waveform. Flow pattern is persistent. Free loop RI in the examined loops are 0.64, 0.66 and 0.73 with average RI= 0.68. Normal waveform. Flow pattern is persistent. CONCLUSION: Normal and persistent spectral waveforms are demonstrated throughout. The S/D ratio average measures 3.09. The resistive index average measures 0.68. Thank you for the opportunity to participate in this patient's care.
[2018-10-14] MEDS: D5LR 1,000 ML IV SCH (17:31)
--- NOTE | 2018-10-14 18:11 | Progress Note ---
Assessment and Plan 1. IUP at 26 5/7 weeks' 2. Superimposed preeclampsia, severe 3. Question of HELLP Syndrome 4. IUGR, severe 5. VSD, single umbilical artery, and possible brain abnormality vs normal variant 1. Continue expectant management 2. Daily platelet count, AST/ALT, serum creatinine 3. BPP/umbilical artery doppler velocimetry q 2 days starting in 2 days 4. Frequent FHR monitoring 5. EFW q 2 weeks 6. Deliver for clear evidence of HELLP Syndrome, renal insufficiency Subjective - Subjective Date of service: 10/14/18 (Feeling well, fetus active; reports resolution of recent headache and epigastric pain) Principal diagnosis: IUP @ 26w5d w/ CHTN with superimposed PreE Patient reports: movement normal, no new complaints, no loss of fluid, no vaginal bleeding, no contractions, no other (no HENSON, visual changes or epigastric pain) Objective - Vital Signs Vital Signs: Vital Signs - 12hr 10/14/18 10/14/18 10/14/18 06:09 06:10 07:42 Temperature Pulse Rate 97 H 97 H 92 H Respiratory Rate Blood Pressure 122/76 122/76 139/76 Blood Pressure [Right] 10/14/18 10/14/18 10/14/18 08:00 10:39 10:42 Temperature 98.1 F Pulse Rate 84 84 Respiratory 16 Rate Blood Pressure 143/75 143/75 Blood Pressure [Right] 10/14/18 10/14/18 10/14/18 11:58 11:59 14:04 Temperature 98.4 F Pulse Rate 94 H 94 H 81 Respiratory 18 Rate Blood Pressure 120/74 119/62 Blood Pressure 120/74 [Right] 10/14/18 10/14/18 10/14/18 14:06 14:07 15:54 Temperature Pulse Rate 85 81 88 Respiratory Rate Blood Pressure 116/56 119/62 128/72 Blood Pressure [Right] - Exam Narrative Exam: Abd soft, nontender; FHT's reassuring earlier today; DTR 1-2+; labs reviewed; low platelet count and elevated AST/ALT essentially stable; REBEKAH 8.6 cm with normal umbilical artery doppler velocimetry [images reviewed] - Labs Labs: Abnormal Labs 10/07/18 10/07/18 10/07/18 23:17 23:17 23:17 WBC 11.1 H RBC 3.34 L Hgb Hct MCHC 35 H Plt Count [place] % (Auto) [place] # Seg Neutrophils # PT INR Sodium 133 L Carbon Dioxide BUN 6 L Creatinine 0.3 L Glucose Uric Acid 3.0 L AST 157 H ALT 88 H Alkaline Phosphatase 189 H Lactate Dehydrogenase Total Protein 6.1 L Albumin 3.1 L 10/08/18 10/08/18 10/08/18 06:06 07:43 16:04 WBC 12.9 H RBC 3.56 L 3.54 L Hgb Hct MCHC 35 H Plt Count [place] % (Auto) [place] # Seg Neutrophils # PT INR Sodium 136 L Carbon Dioxide 20 L BUN 4 L Creatinine 0.4 L Glucose 109 H Uric Acid AST 221 H ALT 128 H Alkaline Phosphatase 201 H Lactate Dehydrogenase Total Protein Albumin 3.1 L 10/08/18 10/09/18 10/09/18 16:04 05:10 05:10 WBC 12.0 H RBC 3.46 L Hgb Hct MCHC Plt Count [place] % (Auto) [place] # Seg Neutrophils # PT INR Sodium Carbon Dioxide BUN Creatinine 0.4 L 0.5 L Glucose Uric Acid 3.1 L 3.4 L AST 120 H 66 H ALT 102 H 78 H Alkaline Phosphatase Lactate Dehydrogenase 335 H 240 H Total Protein Albumin 10/09/18 10/09/18 10/10/18 19:58 19:58 05:43 WBC 15.0 H 13.2 H RBC 3.26 L 3.18 L Hgb 9.9 L Hct 29.3 L MCHC Plt Count [place] % (Auto) [place] # Seg Neutrophils # PT INR Sodium Carbon Dioxide BUN Creatinine Glucose Uric Acid AST ALT 61 H Alkaline Phosphatase Lactate Dehydrogenase Total Protein Albumin 10/10/18 10/10/18 10/10/18 05:43 17:43 17:43 WBC 14.2 H RBC 3.51 L Hgb Hct MCHC Plt Count [place] % (Auto) [place] # Seg Neutrophils # PT INR Sodium Carbon Dioxide 21 L BUN 5 L Creatinine 0.4 L 0.5 L Glucose 109 H Uric Acid AST ALT Alkaline Phosphatase 170 H Lactate Dehydrogenase 227 H Total Protein 5.8 L Albumin 3.2 L 10/11/18 10/11/18 10/11/18 05:29 05:29 19:46 WBC 12.0 H RBC 3.23 L 3.25 L Hgb 9.9 L Hct 30.0 L 30.1 L MCHC Plt Count [place] % (Auto) [place] # Seg Neutrophils # PT INR Sodium Carbon Dioxide BUN Creatinine 0.5 L Glucose Uric Acid 3.4 L AST ALT Alkaline Phosphatase Lactate Dehydrogenase 213 H Total Protein Albumin 10/11/18 10/12/18 10/12/18 19:46 05:18 05:18 WBC RBC 3.01 L Hgb 9.4 L Hct 27.7 L MCHC Plt Count 123 L [place] % (Auto) [place] # Seg Neutrophils # PT INR Sodium Carbon Dioxide BUN Creatinine 0.4 L 0.3 L Glucose Uric Acid 3.1 L 2.9 L AST 192 H 141 H ALT 135 H 117 H Alkaline Phosphatase Lactate Dehydrogenase 352 H 296 H Total Protein Albumin 10/12/18 10/12/18 10/13/18 18:59 18:59 04:45 WBC 12.2 H 12.4 H RBC 3.30 L 3.12 L Hgb 9.7 L Hct 28.7 L MCHC Plt Count 119 L 115 L [place] % (Auto) [place] # Seg Neutrophils # PT INR Sodium Carbon Dioxide BUN Creatinine 0.5 L D Glucose Uric Acid 3.0 L AST 101 H ALT 115 H Alkaline Phosphatase Lactate Dehydrogenase 293 H Total Protein Albumin 10/13/18 10/13/18 10/13/18 04:45 17:29 17:29 WBC 13.2 H RBC 3.53 L Hgb Hct MCHC Plt Count 118 L [place] % (Auto) [place] # Seg Neutrophils # PT INR Sodium Carbon Dioxide BUN Creatinine 0.3 L 0.4 L Glucose Uric Acid 2.8 L 2.8 L AST 79 H 125 H ALT 101 H 133 H Alkaline Phosphatase Lactate Dehydrogenase 252 H 346 H Total Protein Albumin 10/14/18 10/14/18 10/14/18 05:54 05:54 09:43 WBC 12.1 H 12.1 H RBC 3.14 L 3.43 L Hgb 9.8 L Hct 28.8 L MCHC Plt Count 103 L 106 L [place] % (Auto) 7.7 H [place] # 0.9 H Seg Neutrophils # 8.4 H PT INR Sodium Carbon Dioxide BUN Creatinine 0.3 L Glucose Uric Acid 3.0 L AST 112 H ALT 118 H Alkaline Phosphatase Lactate Dehydrogenase 330 H Total Protein Albumin 10/14/18 10/14/18 09:43 09:43 WBC RBC Hgb Hct MCHC Plt Count [place] % (Auto) [place] # Seg Neutrophils # PT 12.1 L INR 0.86 L Sodium Carbon Dioxide 21 L BUN 3 L Creatinine 0.4 L Glucose Uric Acid AST 136 H ALT 129 H Alkaline Phosphatase 255 H Lactate Dehydrogenase Total Protein Albumin 3.0 L Laboratory Results - last 24 hr 10/13/18 10/14/18 10/14/18 17:29 05:54 05:54 WBC 12.1 H RBC 3.14 L Hgb 9.8 L Hct 28.8 L MCV 92 MCH 31 MCHC 34 RDW 14.6 Plt Count 103 L Lymph % (Auto) [place] % (Auto) Eos % (Auto) Baso % (Auto) Lymph # [place] # Eos # Baso # Seg Neutrophils % Seg Neutrophils # PT INR APTT Sodium Potassium Chloride Carbon Dioxide Anion Gap BUN Creatinine 0.4 L 0.3 L Estimated GFR > 60 > 60 BUN/Creatinine Ratio Glucose Uric Acid 2.8 L 3.0 L Calcium Total Bilirubin AST 125 H 112 H ALT 133 H 118 H Alkaline Phosphatase Lactate Dehydrogenase 346 H 330 H Total Protein Albumin Albumin/Globulin Ratio 10/14/18 10/14/18 10/14/18 09:43 09:43 09:43 WBC 12.1 H RBC 3.43 L Hgb 10.6 Hct 31.6 MCV 92 MCH 31 MCHC 34 RDW 15.0 Plt Count 106 L Lymph % (Auto) 21.8 [place] % (Auto) 7.7 H Eos % (Auto) 1.3 Baso % (Auto) 0.4 Lymph # 2.6 [place] # 0.9 H Eos # 0.2 Baso # 0.0 Seg Neutrophils % 68.8 Seg Neutrophils # 8.4 H PT 12.1 L INR 0.86 L APTT 24.4 Sodium 137 Potassium 4.2 Chloride 105.2 Carbon Dioxide 21 L Anion Gap 15 BUN 3 L Creatinine 0.4 L Estimated GFR > 60 BUN/Creatinine Ratio 8 Glucose 86 Uric Acid Calcium 8.8 Total Bilirubin 0.70 AST 136 H ALT 129 H Alkaline Phosphatase 255 H Lactate Dehydrogenase Total Protein 6.3 Albumin 3.0 L Albumin/Globulin Ratio 0.9
[2018-10-14] MEDS: MILK OF MAGNESIA PO PRN (21:47)
[2018-10-14] MEDS: AMBIEN PO PRN (23:54)
[2018-10-15 05:30] LABS: Basophils % (Auto) 0.4 % (0.0-1.8); Eosinophils # (Auto) 0.2 K/mm3 (0.0-0.4); Eosinophils % (Auto) 1.6 % (0.0-4.3); Hematocrit 29.3 % (30.3-42.9); Hemoglobin 10.1 gm/dl (10.1-14.3); Lymphocytes % (Auto) 28.2 % (13.4-35.0); Mean Corpuscular HGB Conc 35 % (30-34); Mean Corpuscular Volume 91 fl (79-97); Monocytes # (Auto) 0.9 K/mm3 (0.0-0.8); Monocytes % (Auto) 8.6 % (0.0-7.3); Platelet Count 103 K/mm3 (140-440); Red Blood Count 3.21 M/mm3 (3.65-5.03)
[2018-10-15 05:55] LABS: Alanine Aminotransferase 100 units/L (7-56)
[2018-10-15] MEDS: APRESOLINE PO SCH ×3 (06:20→17:49)
--- NOTE | 2018-10-15 07:41 | Progress Note ---
Assessment and Plan - Patient Problems (1) Elevated LFTs Onset Date: ~10/14/18 Current Visit: Yes Status: Acute Plan to address problem: 1. Continue expectant management 2. Daily platelet count, AST/ALT, serum creatinine 3. BPP/umbilical artery doppler velocimetry q 2 days starting in 2 days 4. Frequent FHR monitoring 5. EFW q 2 weeks 6. Deliver for clear evidence of HELLP Syndrome, renal insufficiency (2) HTN in , chronic Current Visit: No Status: Acute (3) IUGR (intrauterine growth restriction) Current Visit: No Status: Acute (4) Umbilical cord, single artery and vein Current Visit: No Status: Acute (5) Chronic hypertension with superimposed pre-eclampsia Current Visit: No Status: Chronic Plan to address problem: 1. Continue expectant management 2. Daily platelet count, AST/ALT, serum creatinine 3. BPP/umbilical artery doppler velocimetry q 2 days starting in 2 days 4. Frequent FHR monitoring 5. EFW q 2 weeks 6. Deliver for clear evidence of HELLP Syndrome, renal insufficiency (6) ventricular septal defect affecting antepartum care of mother Current Visit: No Status: Chronic Qualifiers: Fetus number: single or unspecified fetus Qualified Code(s): O35.8XX0 - Mat ernal care for other (suspected) abnormality and damage, not applicable or unspecified Subjective - Subjective Date of service: 10/15/18 Principal diagnosis: IUP @ 26w6d w/ CHTN with superimposed PreE 2)elevated LFTS 3)low platelets Interval history: Labs reviewed. Platelets at 103 but LFTS still elevated but trending downward. MFM not reviewed and recommendations remain to : 1. Continue expectant management 2. Daily platelet count, AST/ALT, serum creatinine 3. BPP/umbilical artery doppler velocimetry q 2 days starting in 2 days 4. Frequent FHR monitoring 5. EFW q 2 weeks 6. Deliver for clear evidence of HELLP Syndrome, renal insufficiency I have d/w plan of care. She has no new c/o this am of headache, RUQ pain, blurry vision and reports good movement. Will allow diet this am and repeat labs in am as recommended by mfm instead of q 12hrs as they had been being obtained. Patient reports: movement normal, no new complaints, no loss of fluid, no vaginal bleeding, no contractions, no other (no HENSON, visual changes or epigastric pain) Objective - Vital Signs Vital Signs: Vital Signs - 12hr 10/14/18 10/14/18 10/14/18 20:05 20:06 21:45 Temperature 98.0 F Pulse Rate 88 88 88 Respiratory 18 Rate Blood Pressure 104/57 136/75 Blood Pressure 104/57 [Right] 10/14/18 10/14/18 10/14/18 21:48 21:49 23:50 Temperature Pulse Rate 88 88 99 H Respiratory Rate Blood Pressure 136/75 136/75 127/74 Blood Pressure [Right] 10/14/18 10/15/18 10/15/18 23:52 00:13 04:04 Temperature 98.4 F 96.9 F L Pulse Rate 99 H 90 90 Respiratory 18 18 Rate Blood Pressure 135/87 Blood Pressure 127/74 128/60 [Right] 10/15/18 10/15/18 10/15/18 04:05 06:11 06:20 Temperature Pulse Rate 90 92 H 92 H Respiratory Rate Blood Pressure 128/60 118/70 118/70 Blood Pressure [Right] - Exam Cardiovascular: Normal S1, Normal S2 Lungs: Clear to auscultation, Normal air movement Abdomen: Present: normal appearance, soft, normal bowel sounds. Absent: distention, tenderness, guarding FHR: category 1 Deep Tendon Reflex Grade: Normal +2 - Labs Labs: Abnormal Labs 10/07/18 10/07/18 10/07/18 23:17 23:17 23:17 WBC 11.1 H RBC 3.34 L Hgb Hct MCHC 35 H Plt Count [place] % (Auto) [place] # Seg Neutrophils # PT INR Sodium 133 L Carbon Dioxide BUN 6 L Creatinine 0.3 L Glucose Uric Acid 3.0 L AST 157 H ALT 88 H Alkaline Phosphatase 189 H Lactate Dehydrogenase Total Protein 6.1 L Albumin 3.1 L 10/08/18 10/08/18 10/08/18 06:06 07:43 16:04 WBC 12.9 H RBC 3.56 L 3.54 L Hgb Hct MCHC 35 H Plt Count [place] % (Auto) [place] # Seg Neutrophils # PT INR Sodium 136 L Carbon Dioxide 20 L BUN 4 L Creatinine 0.4 L Glucose 109 H Uric Acid AST 221 H ALT 128 H Alkaline Phosphatase 201 H Lactate Dehydrogenase Total Protein Albumin 3.1 L 10/08/18 10/09/1810/09/19 16:04 05:10 05:10 WBC 12.0 H RBC 3.46 L Hgb Hct MCHC Plt Count [place] % (Auto) [place] # Seg Neutrophils # PT INR Sodium Carbon Dioxide BUN Creatinine 0.4 L 0.5 L Glucose Uric Acid 3.1 L 3.4 L AST 120 H 66 H ALT 102 H 78 H Alkaline Phosphatase Lactate Dehydrogenase 335 H 240 H Total Protein Albumin 10/09/18 10/09/18 10/10/18 19:58 19:58 05:43 WBC 15.0 H 13.2 H RBC 3.26 L 3.18 L Hgb 9.9 L Hct 29.3 L MCHC Plt Count [place] % (Auto) [place] # Seg Neutrophils # PT INR Sodium Carbon Dioxide BUN Creatinine Glucose Uric Acid AST ALT 61 H Alkaline Phosphatase Lactate Dehydrogenase Total Protein Albumin 10/10/18 10/10/18 10/10/18 05:43 17:43 17:43 WBC 14.2 H RBC 3.51 L Hgb Hct MCHC Plt Count [place] % (Auto) [place] # Seg Neutrophils # PT INR Sodium Carbon Dioxide 21 L BUN 5 L Creatinine 0.4 L 0.5 L Glucose 109 H Uric Acid AST ALT Alkaline Phosphatase 170 H Lactate Dehydrogenase 227 H Total Protein 5.8 L Albumin 3.2 L 10/11/18 10/11/18 10/11/18 05:29 05:29 19:46 WBC 12.0 H RBC 3.23 L 3.25 L Hgb 9.9 L Hct 30.0 L 30.1 L MCHC Plt Count [place] % (Auto) [place] # Seg Neutrophils # PT INR Sodium Carbon Dioxide BUN Creatinine 0.5 L Glucose Uric Acid 3.4 L AST ALT Alkaline Phosphatase Lactate Dehydrogenase 213 H Total Protein Albumin 10/11/18 10/12/18 10/12/18 19:46 05:18 05:18 WBC RBC 3.01 L Hgb 9.4 L Hct 27.7 L MCHC Plt Count 123 L [place] % (Auto) [place] # Seg Neutrophils # PT INR Sodium Carbon Dioxide BUN Creatinine 0.4 L 0.3 L Glucose Uric Acid 3.1 L 2.9 L AST 192 H 141 H ALT 135 H 117 H Alkaline Phosphatase Lactate Dehydrogenase 352 H 296 H Total Protein Albumin 10/12/18 10/12/18 10/13/18 18:59 18:59 04:45 WBC 12.2 H 12.4 H RBC 3.30 L 3.12 L Hgb 9.7 L Hct 28.7 L MCHC Plt Count 119 L 115 L [place] % (Auto) [place] # Seg Neutrophils # PT INR Sodium Carbon Dioxide BUN Creatinine 0.5 L D Glucose Uric Acid 3.0 L AST 101 H ALT 115 H Alkaline Phosphatase Lactate Dehydrogenase 293 H Total Protein Albumin 10/13/18 10/13/18 10/13/18 04:45 17:29 17:29 WBC 13.2 H RBC 3.53 L Hgb Hct MCHC Plt Count 118 L [place] % (Auto) [place] # Seg Neutrophils # PT INR Sodium Carbon Dioxide BUN Creatinine 0.3 L 0.4 L Glucose Uric Acid 2.8 L 2.8 L AST 79 H 125 H ALT 101 H 133 H Alkaline Phosphatase Lactate Dehydrogenase 252 H 346 H Total Protein Albumin 10/14/18 10/14/18 10/14/18 05:54 05:54 09:43 WBC 12.1 H 12.1 H RBC 3.14 L 3.43 L Hgb 9.8 L Hct 28.8 L MCHC Plt Count 103 L 106 L [place] % (Auto) 7.7 H [place] # 0.9 H Seg Neutrophils # 8.4 H PT INR Sodium Carbon Dioxide BUN Creatinine 0.3 L Glucose Uric Acid 3.0 L AST 112 H ALT 118 H Alkaline Phosphatase Lactate Dehydrogenase 330 H Total Protein Albumin 10/14/18 10/14/18 10/15/18 09:43 09:43 05:05 WBC RBC 3.21 L Hgb Hct 29.3 L MCHC 35 H Plt Count 103 L [place] % (Auto) 8.6 H [place] # 0.9 H Seg Neutrophils # PT 12.1 L INR 0.86 L Sodium Carbon Dioxide 21 L BUN 3 L Creatinine 0.4 L Glucose Uric Acid AST 136 H ALT 129 H Alkaline Phosphatase 255 H Lactate Dehydrogenase Total Protein Albumin 3.0 L 10/15/18 05:05 WBC RBC Hgb Hct MCHC Plt Count [place] % (Auto) [place] # Seg Neutrophils # PT INR Sodium Carbon Dioxide BUN Creatinine 0.4 L Glucose Uric Acid AST 82 H ALT 100 H Alkaline Phosphatase Lactate Dehydrogenase Total Protein Albumin Laboratory Results - last 24 hr 10/14/18 10/14/18 10/14/18 09:43 09:43 09:43 WBC 12.1 H RBC 3.43 L Hgb 10.6 Hct 31.6 MCV 92 MCH 31 MCHC 34 RDW 15.0 Plt Count 106 L Lymph % (Auto) 21.8 [place] % (Auto) 7.7 H Eos % (Auto) 1.3 Baso % (Auto) 0.4 Lymph # 2.6 [place] # 0.9 H Eos # 0.2 Baso # 0.0 Seg Neutrophils % 68.8 Seg Neutrophils # 8.4 H PT 12.1 L INR 0.86 L APTT 24.4 Sodium 137 Potassium 4.2 Chloride 105.2 Carbon Dioxide 21 L Anion Gap 15 BUN 3 L Creatinine 0.4 L Estimated GFR > 60 BUN/Creatinine Ratio 8 Glucose 86 Calcium 8.8 Total Bilirubin 0.70 AST 136 H ALT 129 H Alkaline Phosphatase 255 H Total Protein 6.3 Albumin 3.0 L Albumin/Globulin Ratio 0.9 10/15/18 10/15/18 05:05 05:05 WBC 10.8 RBC 3.21 L Hgb 10.1 Hct 29.3 L MCV 91 MCH 31 MCHC 35 H RDW 15.0 Plt Count 103 L Lymph % (Auto) 28.2 [place] % (Auto) 8.6 H Eos % (Auto) 1.6 Baso % (Auto) 0.4 Lymph # 3.0 [place] # 0.9 H Eos # 0.2 Baso # 0.0 Seg Neutrophils % 61.2 Seg Neutrophils # 6.6 PT INR APTT Sodium Potassium Chloride Carbon Dioxide Anion Gap BUN Creatinine 0.4 L Estimated GFR > 60 BUN/Creatinine Ratio Glucose Calcium Total Bilirubin AST 82 H ALT 100 H Alkaline Phosphatase Total Protein Albumin Albumin/Globulin Ratio
[2018-10-15] MEDS: NORMODYNE PO SCH ×2 (10:03→22:13)
[2018-10-15] MEDS: COLACE PO PRN (10:05)
[2018-10-15] MEDS: MILK OF MAGNESIA PO PRN (10:05)
[2018-10-15] MEDS: PRENATAL VITAMIN PO SCH (10:05)
[2018-10-15] MEDS ORDERED: DULCOLAX PR PRN (10:41)
[2018-10-15] MEDS: D5LR 1,000 ML IV SCH (16:10)
--- NOTE | 2018-10-15 16:13 | Event Note ---
Date: 10/15/18 MW notified by RN due to variable decels noted on NST. Variable are noted appear to be spontaneous. Not associated with any contractions. Position change, fluids bolus in progress at this time. Will con't to closely monitor.
--- NOTE | 2018-10-15 16:24 | Event Note ---
Date: 10/15/18 At bedside with charge nurse. Due to body habitus baby difficult to trace at time. Tracing currently cat I w/o any variable or decels. Will con't for 20 more minutes and then resume intermittent monitoring as testing yesterday was reassurring. Pt was noted to be lying on back at time of variable decels. Currently she is lying in left lateral position with tracing being normal and cat I but she is having to hold the monitor in place to trace the baby due to body habitus. Will con't to closely monitor. I d/w reason for prolonged mon itoring and variable decels. She expressed understanding and questions were addressed and answered.
[2018-10-15] MEDS: PEPCID IV PRN (19:06)
[2018-10-16] MEDS: APRESOLINE PO SCH ×3 (04:39→21:19)
[2018-10-16 07:57] LABS: Basophils % (Auto) 0.4 % (0.0-1.8); Eosinophils # (Auto) 0.1 K/mm3 (0.0-0.4); Eosinophils % (Auto) 1.3 % (0.0-4.3); Hematocrit 30.4 % (30.3-42.9); Hemoglobin 10.4 gm/dl (10.1-14.3); Lymphocytes # (Auto) 2.6 K/mm3 (1.2-5.4); Lymphocytes % (Auto) 24.5 % (13.4-35.0); Mean Corpuscular HGB Conc 34 % (30-34); Mean Corpuscular Volume 92 fl (79-97); Monocytes # (Auto) 0.9 K/mm3 (0.0-0.8); Monocytes % (Auto) 8.6 % (0.0-7.3); Platelet Count 103 K/mm3 (140-440); Red Blood Count 3.31 M/mm3 (3.65-5.03); Red Cell Distribution Width 15.2 % (13.2-15.2)
[2018-10-16 08:16] LABS: Alanine Aminotransferase 136 units/L (7-56)
--- NOTE | 2018-10-16 08:39 | Progress Note ---
Assessment and Plan Patient resting in bed. Reports feeling "different" pain this morning. Points to RUQ area, states pain comes and goes, but is dull and radiates to back. Patient denies tenderness on palpation. No other complaints this morning. BPs reviewed, patient reports elevated BP throughout the night were d/t the cuff being in the wrong location. Denies any HENSON, visual disturbances. DTRs 2+. Labs ordered for this AM are still pending results, patient reports they were just recently drawn. Will communicate changes in assessment to MD compensation adjuster and continue current POC, will monitor for lab results. Patient instructed to notify RN with any changes or worsening of symptoms. Subjective - Subjective Date of service: 10/16/18 Principal diagnosis: IUP @ 26w6d w/ CHTN with superimposed PreE 2)elevated LFTS 3)low platelets Patient reports: movement normal, no new complaints, no loss of fluid, no vaginal bleeding, no contractions, no other (no HENSON, visual changes or epigastric pain) Objective - Vital Signs Vital Signs: Vital Signs - 12hr 10/15/18 10/15/18 10/16/18 22:11 22:13 03:26 Temperature Pulse Rate 90 90 81 Respiratory Rate Blood Pressure 159/84 159/84 161/91 O2 Sat by Pulse Oximetry 10/16/18 10/16/18 10/16/18 03:30 03:46 03:51 Temperature 98.3 F Pulse Rate 79 81 Respiratory 16 Rate Blood Pressure O2 Sat by Pulse 99 99 Oximetry 10/16/18 10/16/18 10/16/18 03:56 04:01 04:06 Temperature Pulse Rate 83 85 83 Respiratory Rate Blood Pressure O2 Sat by Pulse 98 99 99 Oximetry 10/16/18 10/16/18 10/16/18 04:11 04:16 04:21 Temperature Pulse Rate 78 85 81 Respiratory Rate Blood Pressure O2 Sat by Pulse 98 98 98 Oximetry 10/16/18 10/16/18 10/16/18 04:26 04:29 04:31 Temperature Pulse Rate 85 78 80 Respiratory Rate Blood Pressure 175/96 O2 Sat by Pulse 100 98 Oximetry 10/16/18 10/16/18 10/16/18 04:36 04:39 04:44 Temperature Pulse Rate 84 87 80 Respiratory Rate Blood Pressure 175/96 O2 Sat by Pulse 98 100 Oximetry 0110/16/18 10/16/18 04:49 04:54 04:59 Temperature Pulse Rate 77 84 87 Respiratory Rate Blood Pressure O2 Sat by Pulse 98 98 98 Oximetry 10/16/18 10/16/18 10/16/18 05:04 05:09 05:14 Temperature Pulse Rate 90 91 H 85 Respiratory Rate Blood Pressure O2 Sat by Pulse 98 99 99 Oximetry 10/16/18 10/16/18 10/16/18 05:19 05:24 05:26 Temperature Pulse Rate 81 81 80 Respiratory Rate Blood Pressure 197/96 O2 Sat by Pulse 99 97 Oximetry 10/16/18 10/16/18 10/16/18 05:29 05:34 05:35 Temperature Pulse Rate 84 86 84 Respiratory Rate Blood Pressure 163/90 O2 Sat by Pulse 97 99 Oximetry 10/16/18 10/16/18 10/16/18 05:39 05:44 05:49 Temperature Pulse Rate 79 82 82 Respiratory Rate Blood Pressure O2 Sat by Pulse 99 98 98 Oximetry 10/16/18 10/16/18 10/16/18 05:54 05:59 06:04 Temperature Pulse Rate 81 81 81 Respiratory Rate Blood Pressure O2 Sat by Pulse 99 98 98 Oximetry 10/16/18 10/16/18 10/16/18 06:09 06:25 08:19 Temperature Pulse Rate 89 82 90 Respiratory Rate Blood Pressure 143/83 O2 Sat by Pulse 99 99 Oximetry 10/16/18 10/16/18 10/16/18 08:24 08:29 08:34 Temperature Pulse Rate 97 H 93 H 96 H Respiratory Rate Blood Pressure O2 Sat by Pulse 99 98 99 Oximetry - Exam Breasts: normal Cardiovascular: Regular rate, Normal S1 Lungs: Clear to auscultation Abdomen: Present: normal appearance, soft. Absent: distention, tenderness (patient denies tenderness on palpation, but reports mild RUQ pain radiating to back. ) Uterus: Present: normal FHR: auscultation normal (appropriate for gestational age per most recent monitoring) Uterine Contraction Monitor Mode: Palpation (none palpated. patient denies ctx) Uterine Contraction Pattern: Absent Uterine Tone Measurement Phase: Resting (soft) Extremities: normal Deep Tendon Reflex Grade: Normal +2 - Labs Labs: Abnormal Labs 10/07/18 10/07/18 10/07/18 23:17 23:17 23:17 WBC 11.1 H RBC 3.34 L Hgb Hct MCHC 35 H Plt Count [place] % (Auto) [place] # Seg Neutrophils # PT INR Sodium 133 L Carbon Dioxide BUN 6 L Creatinine 0.3 L Glucose Uric Acid 3.0 L AST 157 H ALT 88 H Alkaline Phosphatase 189 H Lactate Dehydrogenase Total Protein 6.1 L Albumin 3.1 L 10/08/18 10/08/18 10/08/18 06:06 07:43 16:04 WBC 12.9 H RBC 3.56 L 3.54 L Hgb Hct MCHC 35 H Plt Count [place] % (Auto) [place] # Seg Neutrophils # PT INR Sodium 136 L Carbon Dioxide 20 L BUN 4 L Creatinine 0.4 L Glucose 109 H Uric Acid AST 221 H ALT 128 H Alkaline Phosphatase 201 H Lactate Dehydrogenase Total Protein Albumin 3.1 L 10/08/18 10/09/18 10/09/18 16:04 05:10 05:10 WBC 12.0 H RBC 3.46 L Hgb Hct MCHC Plt Count [place] % (Auto) [place] # Seg Neutrophils # PT INR Sodium Carbon Dioxide BUN Creatinine 0.4 L 0.5 L Glucose Uric Acid 3.1 L 3.4 L AST 120 H 66 H ALT 102 H 78 H Alkaline Phosphatase Lactate Dehydrogenase 335 H 240 H Total Protein Albumin 10/09/18 10/09/18 10/10/18 19:58 19:58 05:43 WBC 15.0 H 13.2 H RBC 3.26 L 3.18 L Hgb 9.9 L Hct 29.3 L MCHC Plt Count [place] % (Auto) [place] # Seg Neutrophils # PT INR Sodium Carbon Dioxide BUN Creatinine Glucose Uric Acid AST ALT 61 H Alkaline Phosphatase Lactate Dehydrogenase Total Protein Albumin 10/10/18 10/10/18 10/10/18 05:43 17:43 17:43 WBC 14.2 H RBC 3.51 L Hgb Hct MCHC Plt Count [place] % (Auto) [place] # Seg Neutrophils # PT INR Sodium Carbon Dioxide 21 L BUN 5 L Creatinine 0.4 L 0.5 L Glucose 109 H Uric Acid AST ALT Alkaline Phosphatase 170 H Lactate Dehydrogenase 227 H Total Protein 5.8 L Albumin 3.2 L 10/11/18 10/11/18 10/11/18 05:29 05:29 19:46 WBC 12.0 H RBC 3.23 L 3.25 L Hgb 9.9 L Hct 30.0 L 30.1 L MCHC Plt Count [place] % (Auto) [place] # Seg Neutrophils # PT INR Sodium Carbon Dioxide BUN Creatinine 0.5 L Glucose Uric Acid 3.4 L AST ALT Alkaline Phosphatase Lactate Dehydrogenase 213 H Total Protein Albumin 10/11/18 10/12/18 10/12/18 19:46 05:18 05:18 WBC RBC 3.01 L Hgb 9.4 L Hct 27.7 L MCHC Plt Count 123 L [place] % (Auto) [place] # Seg Neutrophils # PT INR Sodium Carbon Dioxide BUN Creatinine 0.4 L 0.3 L Glucose Uric Acid 3.1 L 2.9 L AST 192 H 141 H ALT 135 H 117 H Alkaline Phosphatase Lactate Dehydrogenase 352 H 296 H Total Protein Albumin 10/12/18 10/12/18 10/13/18 18:59 18:59 04:45 WBC 12.2 H 12.4 H RBC 3.30 L 3.12 L Hgb 9.7 L Hct 28.7 L MCHC Plt Count 119 L 115 L [place] % (Auto) [place] # Seg Neutrophils # PT INR Sodium Carbon Dioxide BUN Creatinine 0.5 L D Glucose Uric Acid 3.0 L AST 101 H ALT 115 H Alkaline Phosphatase Lactate Dehydrogenase 293 H Total Protein Albumin 10/13/18 10/13/18 10/13/18 04:45 17:29 17:29 WBC 13.2 H RBC 3.53 L Hgb Hct MCHC Plt Count 118 L [place] % (Auto) [place] # Seg Neutrophils # PT INR Sodium Carbon Dioxide BUN Creatinine 0.3 L 0.4 L Glucose Uric Acid 2.8 L 2.8 L AST 79 H 125 H ALT 101 H 133 H Alkaline Phosphatase Lactate Dehydrogenase 252 H 346 H Total Protein Albumin 10/14/18 10/14/18 10/14/18 05:54 05:54 09:43 WBC 12.1 H 12.1 H RBC 3.14 L 3.43 L Hgb 9.8 L Hct 28.8 L MCHC Plt Count 103 L 106 L [place] % (Auto) 7.7 H [place] # 0.9 H Seg Neutrophils # 8.4 H PT INR Sodium Carbon Dioxide BUN Creatinine 0.3 L Glucose Uric Acid 3.0 L AST 112 H ALT 118 H Alkaline Phosphatase Lactate Dehydrogenase 330 H Total Protein Albumin 10/14/18 10/14/18 10/15/18 09:43 09:43 05:05 WBC RBC 3.21 L Hgb Hct 29.3 L MCHC 35 H Plt Count 103 L [place] % (Auto) 8.6 H [place] # 0.9 H Seg Neutrophils # PT 12.1 L INR 0.86 L Sodium Carbon Dioxide 21 L BUN 3 L Creatinine 0.4 L Glucose Uric Acid AST 136 H ALT 129 H Alkaline Phosphatase 255 H Lactate Dehydrogenase Total Protein Albumin 3.0 L 10/15/18 10/16/18 10/16/18 05:05 07:33 07:33 WBC RBC 3.31 L Hgb Hct MCHC Plt Count 103 L [place] % (Auto) 8.6 H [place] # 0.9 H Seg Neutrophils # PT INR Sodium Carbon Dioxide BUN Creatinine 0.4 L 0.4 L Glucose Uric Acid AST 82 H 169 H ALT 100 H 136 H Alkaline Phosphatase Lactate Dehydrogenase Total Protein Albumin Laboratory Results - last 24 hr 10/16/18 10/16/18 07:33 07:33 WBC 10.8 RBC 3.31 L Hgb 10.4 Hct 30.4 MCV 92 MCH 32 MCHC 34 RDW 15.2 Plt Count 103 L Lymph % (Auto) 24.5 [place] % (Auto) 8.6 H Eos % (Auto) 1.3 Baso % (Auto) 0.4 Lymph # 2.6 [place] # 0.9 H Eos # 0.1 Baso # 0.0 Seg Neutrophils % 65.2 Seg Neutrophils # 7.0 Creatinine 0.4 L Estimated GFR > 60 AST 169 H ALT 136 H
--- NOTE | 2018-10-16 10:34 | Progress Note ---
Assessment and Plan 1. IUP at 26 5/7 weeks' 2. Superimposed preeclampsia, severe 3. Question of HELLP Syndrome 4. IUGR, severe 5. VSD, single umbilical artery, and possible brain abnormality vs normal variant 1. Continue expectant management 2. Daily platelet count, AST/ALT, serum creatinine 3. BPP/umbilical artery doppler velocimetry q 2 days starting in 2 days( pending today) 4. Frequent FHR monitoring 5. EFW q 2 weeks 6. Deliver for clear evidence of HELLP Syndrome, renal insufficiency: will discuss time of delivery with [facility] - Patient Problems (1) 27 weeks gestation of Current Visit: Yes Status: Acute (2) Elevated LFTs Onset Date: ~10/14/18 Current Visit: Yes Status: Acute (3) Body mass index (BMI) of 40.1 to 44.9 in adult Current Visit: Yes Status: Acute (4) HTN in , chronic Current Visit: No Status: Acute (5) IUGR (intrauterine growth restriction) Current Visit: No Status: Acute (6) Umbilical cord, single artery and vein Current Visit: No Status: Acute (7) Chronic hypertension with superimposed pre-eclampsia Current Visit: No Status: Chronic (8) ventricular septal defect affecting antepartum care of mother Current Visit: No Status: Chronic Qualifiers: Fetus number: single or unspecified fetus Qualified Code(s): O35.8XX0 - Maternal care for other (suspected) abnormality and damage, not applicable or unspecified (9) Fibroid Current Visit: Yes Status: Chronic Subjective - Subjective Date of service: 10/16/18 Principal diagnosis: IUP @ 27wd0 w/ CHTN with superimposed PreE 2)elevated LFTS 3)low platelets Interval history: IUP@27weeks, Preeclampsia with severe feature superimposed on HTN, anomalies Patient reports: new complaints (RUQ pain), movement normal, no loss of fluid, no vaginal bleeding, no contractions, no other (no HENSON, visual changes or epigastric pain) Objective - Vital Signs Vital Signs: Vital Signs - 12hr 10/16/18 10/16/18 10/16/18 03:26 03:30 03:46 Temperature 98.3 F Pulse Rate 81 79 Respiratory 16 Rate Blood Pressure 161/91 O2 Sat by Pulse 99 Oximetry 10/16/18 10/16/18 10/16/18 03:51 03:56 04:01 Temperature Pulse Rate 81 83 85 Respiratory Rate Blood Pressure O2 Sat by Pulse 99 98 99 Oximetry 10/16/18 10/16/18 10/16/18 04:06 04:11 04:16 Temperature Pulse Rate 83 78 85 Respiratory Rate Blood Pressure O2 Sat by Pulse 99 98 98 Oximetry 10/16/18 10/16/18 10/16/18 04:21 04:26 04:29 Temperature Pulse Rate 81 85 78 Respiratory Rate Blood Pressure 175/96 O2 Sat by Pulse 98 100 Oximetry 10/16/18 10/16/18 10/16/18 04:31 04:36 04:39 Temperature Pulse Rate 80 84 87 Respiratory Rate Blood Pressure 175/96 O2 Sat by Pulse 98 98 Oximetry 10/16/18 10/16/18 10/16/18 04:44 04:49 04:54 Temperature Pulse Rate 80 77 84 Respiratory Rate Blood Pressure O2 Sat by Pulse 100 98 98 Oximetry 10/16/18 10/16/18 10/16/18 04:59 05:04 05:09 Temperature Pulse Rate 87 90 91 H Respiratory Rate Blood Pressure O2 Sat by Pulse 98 98 99 Oximetry 10/16/18 10/16/18 10/16/18 05:14 05:19 05:24 Temperature Pulse Rate 85 81 81 Respiratory Rate Blood Pressure O2 Sat by Pulse 99 99 97 Oximetry 10/16/18 10/16/18 10/16/18 05:26 05:29 05:34 Temperature Pulse Rate 80 84 86 Respiratory Rate Blood Pressure 197/96 O2 Sat by Pulse 97 99 Oximetry 10/16/18 10/16/18 10/16/18 05:35 05:39 05:44 Temperature Pulse Rate 84 79 82 Respiratory Rate Blood Pressure 163/90 O2 Sat by Pulse 99 98 Oximetry 10/16/18 10/16/18 10/16/18 05:49 05:54 05:59 Temperature Pulse Rate 82 81 81 Respiratory Rate Blood Pressure O2 Sat by Pulse 98 99 98 Oximetry 10/16/18 10/16/18 10/16/18 06:04 06:09 06:25 Temperature Pulse Rate 81 89 82 Respiratory Rate Blood Pressure 143/83 O2 Sat by Pulse 98 99 Oximetry 10/16/18 10/16/18 10/16/18 08:19 08:24 08:29 Temperature Pulse Rate 90 97 H 93 H Respiratory Rate Blood Pressure O2 Sat by Pulse 99 99 98 Oximetry 10/16/18 08:34 Temperature Pulse Rate 96 H Respiratory Rate Blood Pressure O2 Sat by Pulse 99 Oximetry - Exam Breasts: deferred Cardiovascular: Regular rate Lungs: Clear to auscultation Abdomen: Present: normal appearance, soft, tenderness (+/- with palpation, complained of pain with laughing) Uterus: Present: tenderness, other (difficult to palpate d/t obesity) FHR: category 1 Uterine Contraction Monitor Mode: External Extremities: normal - Labs Labs: Abnormal Labs 10/07/18 10/07/18 10/07/18 23:17 23:17 23:17 WBC 11.1 H RBC 3.34 L Hgb Hct MCHC 35 H Plt Count [place] % (Auto) [place] # Seg Neutrophils # PT INR Sodium 133 L Carbon Dioxide BUN 6 L Creatinine 0.3 L Glucose Uric Acid 3.0 L AST 157 H ALT 88 H Alkaline Phosphatase 189 H Lactate Dehydrogenase Total Protein 6.1 L Albumin 3.1 L 10/08/18 10/08/18 10/08/18 06:06 07:43 16:04 WBC 12.9 H RBC 3.56 L 3.54 L Hgb Hct MCHC 35 H Plt Count [place] % (Auto) [place] # Seg Neutrophils # PT INR Sodium 136 L Carbon Dioxide 20 L BUN 4 L Creatinine 0.4 L Glucose 109 H Uric Acid AST 221 H ALT 128 H Alkaline Phosphatase 201 H Lactate Dehydrogenase Total Protein Albumin 3.1 L 10/08/18 10/09/18 10/09/18 16:04 05:10 05:10 WBC 12.0 H RBC 3.46 L Hgb Hct MCHC Plt Count [place] % (Auto) [place] # Seg Neutrophils # PT INR Sodium Carbon Dioxide BUN Creatinine 0.4 L 0.5 L Glucose Uric Acid 3.1 L 3.4 L AST 120 H 66 H ALT 102 H 78 H Alkaline Phosphatase Lactate Dehydrogenase 335 H 240 H Total Protein Albumin 10/09/18 10/09/18 10/10/18 19:58 19:58 05:43 WBC 15.0 H 13.2 H RBC 3.26 L 3.18 L Hgb 9.9 L Hct 29.3 L MCHC Plt Count [place] % (Auto) [place] # Seg Neutrophils # PT INR Sodium Carbon Dioxide BUN Creatinine Glucose Uric Acid AST ALT 61 H Alkaline Phosphatase Lactate Dehydrogenase Total Protein Albumin 10/10/18 10/10/18 10/10/18 05:43 17:43 17:43 WBC 14.2 H RBC 3.51 L Hgb Hct MCHC Plt Count [place] % (Auto) [place] # Seg Neutrophils # PT INR Sodium Carbon Dioxide 21 L BUN 5 L Creatinine 0.4 L 0.5 L Glucose 109 H Uric Acid AST ALT Alkaline Phosphatase 170 H Lactate Dehydrogenase 227 H Total Protein 5.8 L Albumin 3.2 L 10/11/18 10/11/18 10/11/18 05:29 05:29 19:46 WBC 12.0 H RBC 3.23 L 3.25 L Hgb 9.9 L Hct 30.0 L 30.1 L MCHC Plt Count [place] % (Auto) [place] # Seg Neutrophils # PT INR Sodium Carbon Dioxide BUN Creatinine 0.5 L Glucose Uric Acid 3.4 L AST ALT Alkaline Phosphatase Lactate Dehydrogenase 213 H Total Protein Albumin 10/11/18 10/12/18 10/12/18 19:46 05:18 05:18 WBC RBC 3.01 L Hgb 9.4 L Hct 27.7 L MCHC Plt Count 123 L [place] % (Auto) [place] # Seg Neutrophils # PT INR Sodium Carbon Dioxide BUN Creatinine 0.4 L 0.3 L Glucose Uric Acid 3.1 L 2.9 L AST 192 H 141 H ALT 135 H 117 H Alkaline Phosphatase Lactate Dehydrogenase 352 H 296 H Total Protein Albumin 10/12/18 10/12/18 10/13/18 18:59 18:59 04:45 WBC 12.2 H 12.4 H RBC 3.30 L 3.12 L Hgb 9.7 L Hct 28.7 L MCHC Plt Count 119 L 115 L [place] % (Auto) [place] # Seg Neutrophils # PT INR Sodium Carbon Dioxide BUN Creatinine 0.5 L D Glucose Uric Acid 3.0 L AST 101 H ALT 115 H Alkaline Phosphatase Lactate Dehydrogenase 293 H Total Protein Albumin 10/13/18 10/13/18 10/13/18 04:45 17:29 17:29 WBC 13.2 H RBC 3.53 L Hgb Hct MCHC Plt Count 118 L [place] % (Auto) [place] # Seg Neutrophils # PT INR Sodium Carbon Dioxide BUN Creatinine 0.3 L 0.4 L Glucose Uric Acid 2.8 L 2.8 L AST 79 H 125 H ALT 101 H 133 H Alkaline Phosphatase Lactate Dehydrogenase 252 H 346 H Total Protein Albumin 10/14/18 10/14/18 10/14/18 05:54 05:54 09:43 WBC 12.1 H 12.1 H RBC 3.14 L 3.43 L Hgb 9.8 L Hct 28.8 L MCHC Plt Count 103 L 106 L [place] % (Auto) 7.7 H [place] # 0.9 H Seg Neutrophils # 8.4 H PT INR Sodium Carbon Dioxide BUN Creatinine 0.3 L Glucose Uric Acid 3.0 L AST 112 H ALT 118 H Alkaline Phosphatase Lactate Dehydrogenase 330 H Total Protein Albumin 10/14/18 10/14/18 10/15/18 09:43 09:43 05:05 WBC RBC 3.21 L Hgb Hct 29.3 L MCHC 35 H Plt Count 103 L [place] % (Auto) 8.6 H [place] # 0.9 H Seg Neutrophils # PT 12.1 L INR 0.86 L Sodium Carbon Dioxide 21 L BUN 3 L Creatinine 0.4 L Glucose Uric Acid AST 136 H ALT 129 H Alkaline Phosphatase 255 H Lactate Dehydrogenase Total Protein Albumin 3.0 L 10/15/18 10/16/18 10/16/18 05:05 07:33 07:33 WBC RBC 3.31 L Hgb Hct MCHC Plt Count 103 L [place] % (Auto) 8.6 H [place] # 0.9 H Seg Neutrophils # PT INR Sodium Carbon Dioxide BUN Creatinine 0.4 L 0.4 L Glucose Uric Acid AST 82 H 169 H ALT 100 H 136 H Alkaline Phosphatase Lactate Dehydrogenase Total Protein Albumin Laboratory Results - last 24 hr 10/16/18 10/16/18 07:33 07:33 WBC 10.8 RBC 3.31 L Hgb 10.4 Hct 30.4 MCV 92 MCH 32 MCHC 34 RDW 15.2 Plt Count 103 L Lymph % (Auto) 24.5 [place] % (Auto) 8.6 H Eos % (Auto) 1.3 Baso % (Auto) 0.4 Lymph # 2.6 [place] # 0.9 H Eos # 0.1 Baso # 0.0 Seg Neutrophils % 65.2 Seg Neutrophils # 7.0 Creatinine 0.4 L Estimated GFR > 60 AST 169 H ALT 136 H
[2018-10-16] MEDS: D5LR 1,000 ML IV SCH (10:42)
[2018-10-16] MEDS: PRENATAL VITAMIN PO SCH (10:45)
[2018-10-16] MEDS: NORMODYNE PO SCH ×2 (10:45→21:16)
--- NOTE | 2018-10-16 14:31 | Progress Note ---
Assessment and Plan Assessment: 1. IUP at 26 5/7 weeks' 2. Superimposed preeclampsia, severe 3. Question of HELLP Syndrome 4. IUGR, severe 5. VSD, single umbilical artery, and possible brain abnormality vs normal variant 6. RUQ pain (unable to reproduce during physical exam) Recommendations: 1. Continue expectant management 2. Daily platelet count, AST/ALT, serum creatinine 3. BPP/umbilical artery doppler velocimetry q 2 days starting in 2 days ( pending today) 4. Frequent FHR monitoring 5. EFW q 2 weeks 6. Repeat labs this afternoon if patient continues to report RUQ pain 7. Deliver for clear evidence of HELLP Syndrome, renal insufficiency Subjective - Subjective Principal diagnosis: IUP @ 27wd0 w/ CHTN with superimposed PreE 2)elevated LFTS 3)low platelets Interval history: No complaints- denies headaches, visual changes, chest pain, or SOB. Reports RUQ pain Good movement. Patient reports: new complaints (RUQ pain), movement normal, no loss of fluid, no vaginal bleeding, no contractions, no other (no HENSON, visual changes or epigastric pain) Objective - Vital Signs Vital Signs: Vital Signs - 12hr 10/16/18 10/16/18 10/16/18 03:26 03:30 03:46 Temperature 98.3 F Pulse Rate 81 79 Respiratory 16 Rate Blood Pressure 161/91 O2 Sat by Pulse 99 Oximetry 10/16/18 10/16/18 10/16/18 03:51 03:56 04:01 Temperature Pulse Rate 81 83 85 Respiratory Rate Blood Pressure O2 Sat by Pulse 99 98 99 Oximetry 10/16/18 10/16/18 10/16/18 04:06 04:11 04:16 Temperature Pulse Rate 83 78 85 Respiratory Rate Blood Pressure O2 Sat by Pulse 99 98 98 Oximetry 10/16/18 10/16/18 10/16/18 04:21 04:26 04:29 Temperature Pulse Rate 81 85 78 Respiratory Rate Blood Pressure 175/96 O2 Sat by Pulse 98 100 Oximetry 10/16/18 10/16/18 10/16/18 04:31 04:36 04:39 Temperature Pulse Rate 80 84 87 Respiratory Rate Blood Pressure 175/96 O2 Sat by Pulse 98 98 Oximetry 10/16/18 10/16/18 10/16/18 04:44 04:49 04:54 Temperature Pulse Rate 80 77 84 Respiratory Rate Blood Pressure O2 Sat by Pulse 100 98 98 Oximetry 10/16/18 10/16/18 10/16/18 04:59 05:04 05:09 Temperature Pulse Rate 87 90 91 H Respiratory Rate Blood Pressure O2 Sat by Pulse 98 98 99 Oximetry 10/16/18 10/16/18 10/16/18 05:14 05:19 05:24 Temperature Pulse Rate 85 81 81 Respiratory Rate Blood Pressure O2 Sat by Pulse 99 99 97 Oximetry 10/16/18 10/16/18 10/16/18 05:26 05:29 05:34 Temperature Pulse Rate 80 84 86 Respiratory Rate Blood Pressure 197/96 O2 Sat by Pulse 97 99 Oximetry 10/16/18 10/16/18 10/16/18 05:35 05:39 05:44 Temperature Pulse Rate 84 79 82 Respiratory Rate Blood Pressure 163/90 O2 Sat by Pulse 99 98 Oximetry 10/16/18 10/16/18 10/16/18 05:49 05:54 05:59 Temperature Pulse Rate 82 81 81 Respiratory Rate Blood Pressure O2 Sat by Pulse 98 99 98 Oximetry 10/16/18 10/16/18 10/16/18 06:04 06:09 06:25 Temperature Pulse Rate 81 89 82 Respiratory Rate Blood Pressure 143/83 O2 Sat by Pulse 98 99 Oximetry 10/16/18 10/16/18 10/16/18 08:19 08:24 08:29 Temperature Pulse Rate 90 97 H 93 H Respiratory Rate Blood Pressure O2 Sat by Pulse 99 99 98 Oximetry 10/16/18 08:34 Temperature Pulse Rate 96 H Respiratory Rate Blood Pressure O2 Sat by Pulse 99 Oximetry - Exam Abdomen: Present: soft - Labs Labs: Abnormal Labs 10/07/18 10/07/18 10/07/18 23:17 23:17 23:17 WBC 11.1 H RBC 3.34 L Hgb Hct MCHC 35 H Plt Count [place] % (Auto) Dunn # Seg Neutrophils # PT INR Sodium 133 L Carbon Dioxide BUN 6 L Creatinine 0.3 L Glucose Uric Acid 3.0 L AST 157 H ALT 88 H Alkaline Phosphatase 189 H Lactate Dehydrogenase Total Protein 6.1 L Albumin 3.1 L 10/08/18 10/08/18 10/08/18 06:06 07:43 16:04 WBC 12.9 H RBC 3.56 L 3.54 L Hgb Hct MCHC 35 H Plt Count [place] % (Auto) [place] # Seg Neutrophils # PT INR Sodium 136 L Carbon Dioxide 20 L BUN 4 L Creatinine 0.4 L Glucose 109 H Uric Acid AST 221 H ALT 128 H Alkaline Phosphatase 201 H Lactate Dehydrogenase Total Protein Albumin 3.1 L 10/08/18 10/09/18 10/09/18 16:04 05:10 05:10 WBC 12.0 H RBC 3.46 L Hgb Hct MCHC Plt Count [place] % (Auto) [place] # Seg Neutrophils # PT INR Sodium Carbon Dioxide BUN Creatinine 0.4 L 0.5 L Glucose Uric Acid 3.1 L 3.4 L AST 120 H 66 H ALT 102 H 78 H Alkaline Phosphatase Lactate Dehydrogenase 335 H 240 H Total Protein Albumin 10/09/18 10/09/18 10/10/18 19:58 19:58 05:43 WBC 15.0 H 13.2 H RBC 3.26 L 3.18 L Hgb 9.9 L Hct 29.3 L MCHC Plt Count [place] % (Auto) [place] # Seg Neutrophils # PT INR Sodium Carbon Dioxide BUN Creatinine Glucose Uric Acid AST ALT 61 H Alkaline Phosphatase Lactate Dehydrogenase Total Protein Albumin 10/10/18 10/10/18 10/10/18 05:43 17:43 17:43 WBC 14.2 H RBC 3.51 L Hgb Hct MCHC Plt Count [place] % (Auto) [place] # Seg Neutrophils # PT INR Sodium Carbon Dioxide 21 L BUN 5 L Creatinine 0.4 L 0.5 L Glucose 109 H Uric Acid AST ALT Alkaline Phosphatase 170 H Lactate Dehydrogenase 227 H Total Protein 5.8 L Albumin 3.2 L 10/11/18 10/11/18 10/11/18 05:29 05:29 19:46 WBC 12.0 H RBC 3.23 L 3.25 L Hgb 9.9 L Hct 30.0 L 30.1 L MCHC Plt Count [place] % (Auto) [place] # Seg Neutrophils # PT INR Sodium Carbon Dioxide BUN Creatinine 0.5 L Glucose Uric Acid 3.4 L AST ALT Alkaline Phosphatase Lactate Dehydrogenase 213 H Total Protein Albumin 10/11/18 10/12/18 10/12/18 19:46 05:18 05:18 WBC RBC 3.01 L Hgb 9.4 L Hct 27.7 L MCHC Plt Count 123 L [place] % (Auto) [place] # Seg Neutrophils # PT INR Sodium Carbon Dioxide BUN Creatinine 0.4 L 0.3 L Glucose Uric Acid 3.1 L 2.9 L AST 192 H 141 H ALT 135 H 117 H Alkaline Phosphatase Lactate Dehydrogenase 352 H 296 H Total Protein Albumin 10/12/18 10/12/18 10/13/18 18:59 18:59 04:45 WBC 12.2 H 12.4 H RBC 3.30 L 3.12 L Hgb 9.7 L Hct 28.7 L MCHC Plt Count 119 L 115 L [place] % (Auto) [place] # Seg Neutrophils # PT INR Sodium Carbon Dioxide BUN Creatinine 0.5 L D Glucose Uric Acid 3.0 L AST 101 H ALT 115 H Alkaline Phosphatase Lactate Dehydrogenase 293 H Total Protein Albumin 10/13/18 10/13/18 10/13/18 04:45 17:29 17:29 WBC 13.2 H RBC 3.53 L Hgb Hct MCHC Plt Count 118 L [place] % (Auto) [place] # Seg Neutrophils # PT INR Sodium Carbon Dioxide BUN Creatinine 0.3 L 0.4 L Glucose Uric Acid 2.8 L 2.8 L AST 79 H 125 H ALT 101 H 133 H Alkaline Phosphatase Lactate Dehydrogenase 252 H 346 H Total Protein Albumin 10/14/18 10/14/18 10/14/18 05:54 05:54 09:43 WBC 12.1 H 12.1 H RBC 3.14 L 3.43 L Hgb 9.8 L Hct 28.8 L MCHC Plt Count 103 L 106 L [place] % (Auto) 7.7 H Dunn # 0.9 H Seg Neutrophils # 8.4 H PT INR Sodium Carbon Dioxide BUN Creatinine 0.3 L Glucose Uric Acid 3.0 L AST 112 H ALT 118 H Alkaline Phosphatase Lactate Dehydrogenase 330 H Total Protein Albumin 10/14/18 10/14/18 10/15/18 09:43 09:43 05:05 WBC RBC 3.21 L Hgb Hct 29.3 L MCHC 35 H Plt Count 103 L [place] % (Auto) 8.6 H Dunn # 0.9 H Seg Neutrophils # PT 12.1 L INR 0.86 L Sodium Carbon Dioxide 21 L BUN 3 L Creatinine 0.4 L Glucose Uric Acid AST 136 H ALT 129 H Alkaline Phosphatase 255 H Lactate Dehydrogenase Total Protein Albumin 3.0 L 10/15/18 10/16/18 10/16/18 05:05 07:33 07:33 WBC RBC 3.31 L Hgb Hct MCHC Plt Count 103 L [place] % (Auto) 8.6 H Dunn # 0.9 H Seg Neutrophils # PT INR Sodium Carbon Dioxide BUN Creatinine 0.4 L 0.4 L Glucose Uric Acid AST 82 H 169 H ALT 100 H 136 H Alkaline Phosphatase Lactate Dehydrogenase Total Protein Albumin Laboratory Results - last 24 hr 10/16/18 10/16/18 07:33 07:33 WBC 10.8 RBC 3.31 L Hgb 10.4 Hct 30.4 MCV 92 MCH 32 MCHC 34 RDW 15.2 Plt Count 103 L Lymph % (Auto) 24.5 Dunn % (Auto) 8.6 H Eos % (Auto) 1.3 Baso % (Auto) 0.4 Lymph # 2.6 Dunn # 0.9 H Eos # 0.1 Baso # 0.0 Seg Neutrophils % 65.2 Seg Neutrophils # 7.0 Creatinine 0.4 L Estimated GFR > 60 AST 169 H ALT 136 H
--- NOTE | 2018-10-16 14:47 | Ultrasound Report ---
ULTRASOUND BIOPHYSICAL PROFILE: History: Intrauterine growth restriction Technique: Transabdominal ultrasound with Doppler interrogation. 2 - breathing movements 2 - movements 2 - posture and tone 2 - Qualitative amniotic fluid volume 8 - TOTAL SCORE OF POSSIBLE 8 Heart Rate (bpm) 135
--- NOTE | 2018-10-16 14:48 | Ultrasound Report ---
ULTRASOUND OB VELOCIMETRY UMBILICAL ARTERY HISTORY: Intrauterine growth restriction. TECHNIQUE: Transabdominal ultrasound. Spectral Doppler interrogation was performed on 3 segments of the umbilical cord. FINDINGS: heart rate measures 129 beats per minute. The spectral waveforms are normal and persistent. No evidence for loss or reversal of end-diastolic flow. The resistive index average measures 0.76. The systolic/diastolic ratio average measures 4.4. IMPRESSION: Elevated resistive indices.
--- NOTE | 2018-10-16 14:50 | Ultrasound Report ---
OB ULTRASOUND History intrauterine growth restriction. Technique: Transabdominal ultrasound with Doppler interrogation. Gestation: Single Position: Cephalic Amniotic Fluid: Normal REBEKAH = 14.7 cm Heart Rate: 120 BPM BPD: 8.2 cm = 32 w 6 d HC: 29.6 cm = 32 w 5 d AC: 27.0 cm = 31 w 0 d FL: 6.5 cm = 33 w 4 d HC/AC Ratio: 1.10 Cephalic Index: 89.3 Estimated Weight: 1914 grams Clinical age = 32 w 5 d EDC: 12/06/18 US Gest. Age = 32 w 4 d EDC: 12/07/18 IMPRESSION: Viable, single intrauterine as described.
[2018-10-16 14:53] LABS: Hematocrit 29.5 % (30.3-42.9); Hemoglobin 10.1 gm/dl (10.1-14.3); Mean Corpuscular HGB Conc 34 % (30-34); Mean Corpuscular Volume 92 fl (79-97); Red Blood Count 3.21 M/mm3 (3.65-5.03); Red Cell Distribution Width 15.2 % (13.2-15.2)
[2018-10-16 15:17] LABS: Alanine Aminotransferase 153 units/L (7-56); Uric Acid 2.9 mg/dL (3.5-7.6)
[2018-10-16 15:20] LABS: Platelet Count 91 K/mm3 (140-440)
[2018-10-16] MEDS ORDERED: BICITRA PO ONE (16:52)
[2018-10-16] MEDS ORDERED: PEPCID IV ONE (16:52)
[2018-10-16] MEDS ORDERED: REGLAN IV ONE (16:52)
--- NOTE | 2018-10-16 16:55 | Progress Note ---
Assessment and Plan - Patient Problems (1) 27 weeks gestation of Current Visit: Yes Status: Acute (2) Elevated LFTs Onset Date: ~10/14/18 Current Visit: Yes Status: Acute (3) Body mass index (BMI) of 40.1 to 44.9 in adult Current Visit: Yes Status: Acute (4) HTN in , chronic Current Visit: No Status: Acute (5) IUGR (intrauterine growth restriction) Current Visit: No Status: Acute (6) Umbilical cord, single artery and vein Current Visit: No Status: Acute (7) Chronic hypertension with superimposed pre-eclampsia Current Visit: No Status: Chronic (8) ventricular septal defect affecting antepartum care of mother Current Visit: No Status: Chronic Qualifiers: Fetus number: single or unspecified fetus Qualified Code(s): O35.8XX0 - Maternal care for other (suspected) abnormality and damage, not applicable or unspecified (9) Fibroid Current Visit: Yes Status: Chronic Subjective - Subjective Date of service: 10/16/18 Principal diagnosis: IUP @ 27wd0 w/ CHTN with superimposed PreE 2)elevated LFTS 3)low platelets Interval history: IUP@27weeks, Preeclampsia with severe feature superimposed on HTN, anomalies, now with clear HELP, plts 91K and LFT's trending up and Breech, as discussed with Dr. Guerrero will proceed with delivery. Lab results discussed with patient, recommendation for c/s explained. Questions encouraged and answered. She voiced understanding and desires to proceed with delivery Patient reports: new complaints (RUQ pain), movement normal, no loss of fluid, no vaginal bleeding, no contractions, no other (no HENSON, visual changes or epigastric pain) Objective - Vital Signs Vital Signs: Vital Signs - 12hr 10/16/18 10/16/18 10/16/18 04:54 04:59 05:04 Temperature Pulse Rate 84 87 90 Respiratory Rate Blood Pressure Blood Pressure [Right] O2 Sat by Pulse 98 98 98 Oximetry 10/16/18 10/16/18 10/16/18 05:09 05:14 05:19 Temperature Pulse Rate 91 H 85 81 Respiratory Rate Blood Pressure Blood Pressure [Right] O2 Sat by Pulse 99 99 99 Oximetry 10/16/18 10/16/18 10/16/18 05:24 05:26 05:29 Temperature Pulse Rate 81 80 84 Respiratory Rate Blood Pressure 197/96 Blood Pressure [Right] O2 Sat by Pulse 97 97 Oximetry 10/16/18 10/16/18 10/16/18 05:34 05:35 05:39 Temperature Pulse Rate 86 84 79 Respiratory Rate Blood Pressure 163/90 Blood Pressure [Right] O2 Sat by Pulse 99 99 Oximetry 10/16/18 10/16/18 10/16/18 05:44 05:49 05:54 Temperature Pulse Rate 82 82 81 Respiratory Rate Blood Pressure Blood Pressure [Right] O2 Sat by Pulse 98 98 99 Oximetry 10/16/18 10/16/18 10/16/18 05:59 06:04 06:09 Temperature Pulse Rate 81 81 89 Respiratory Rate Blood Pressure Blood Pressure [Right] O2 Sat by Pulse 98 98 99 Oximetry 10/16/18 10/16/18 10/16/18 06:25 08:19 08:24 Temperature Pulse Rate 82 90 97 H Respiratory Rate Blood Pressure 143/83 Blood Pressure [Right] O2 Sat by Pulse 99 99 Oximetry 10/16/18 10/16/18 10/16/18 08:29 08:34 10:29 Temperature 98.7 F Pulse Rate 93 H 96 H 98 H Respiratory 16 Rate Blood Pressure Blood Pressure 148/90 [Right] O2 Sat by Pulse 98 99 98 Oximetry 10/16/18 10/16/18 10/16/18 12:15 13:00 15:38 Temperature 98.7 F 98.8 F 99.7 F H Pulse Rate 74 102 H 99 H Respiratory 16 18 Rate Blood Pressure Blood Pressure 142/88 148/84 [Right] O2 Sat by Pulse 98 98 Oximetry 10/16/18 10/16/18 16:22 16:45 Temperature Pulse Rate 89 98 H Respiratory 19 Rate Blood Pressure 158/93 Blood Pressure 152/93 [Right] O2 Sat by Pulse Oximetry - Labs Labs: Abnormal Labs 10/07/18 10/07/18 10/07/18 23:17 23:17 23:17 WBC 11.1 H RBC 3.34 L Hgb Hct MCHC 35 H Plt Count [place] % (Auto) [place] # Seg Neutrophils # PT INR Sodium 133 L Carbon Dioxide BUN 6 L Creatinine 0.3 L Glucose Uric Acid 3.0 L AST 157 H ALT 88 H Alkaline Phosphatase 189 H Lactate Dehydrogenase Total Protein 6.1 L Albumin 3.1 L 10/08/18 10/08/18 10/08/18 06:06 07:43 16:04 WBC 12.9 H RBC 3.56 L 3.54 L Hgb Hct MCHC 35 H Plt Count [place] % (Auto) [place] # Seg Neutrophils # PT INR Sodium 136 L Carbon Dioxide 20 L BUN 4 L Creatinine 0.4 L Glucose 109 H Uric Acid AST 221 H ALT 128 H Alkaline Phosphatase 201 H Lactate Dehydrogenase Total Protein Albumin 3.1 L 10/08/18 10/09/18 10/09/18 16:04 05:10 05:10 WBC 12.0 H RBC 3.46 L Hgb Hct MCHC Plt Count [place] % (Auto) [place] # Seg Neutrophils # PT INR Sodium Carbon Dioxide BUN Creatinine 0.4 L 0.5 L Glucose Uric Acid 3.1 L 3.4 L AST 120 H 66 H ALT 102 H 78 H Alkaline Phosphatase Lactate Dehydrogenase 335 H 240 H Total Protein Albumin 10/09/18 10/09/18 10/10/18 19:58 19:58 05:43 WBC 15.0 H 13.2 H RBC 3.26 L 3.18 L Hgb 9.9 L Hct 29.3 L MCHC Plt Count [place] % (Auto) [place] # Seg Neutrophils # PT INR Sodium Carbon Dioxide BUN Creatinine Glucose Uric Acid AST ALT 61 H Alkaline Phosphatase Lactate Dehydrogenase Total Protein Albumin 10/10/18 10/10/18 10/10/18 05:43 17:43 17:43 WBC 14.2 H RBC 3.51 L Hgb Hct MCHC Plt Count [place] % (Auto) [place] # Seg Neutrophils # PT INR Sodium Carbon Dioxide 21 L BUN 5 L Creatinine 0.4 L 0.5 L Glucose 109 H Uric Acid AST ALT Alkaline Phosphatase 170 H Lactate Dehydrogenase 227 H Total Protein 5.8 L Albumin 3.2 L 10/11/18 10/11/18 10/11/18 05:29 05:29 19:46 WBC 12.0 H RBC 3.23 L 3.25 L Hgb 9.9 L Hct 30.0 L 30.1 L MCHC Plt Count [place] % (Auto) [place] # Seg Neutrophils # PT INR Sodium Carbon Dioxide BUN Creatinine 0.5 L Glucose Uric Acid 3.4 L AST ALT Alkaline Phosphatase Lactate Dehydrogenase 213 H Total Protein Albumin 10/11/18 10/12/18 10/12/18 19:46 05:18 05:18 WBC RBC 3.01 L Hgb 9.4 L Hct 27.7 L MCHC Plt Count 123 L [place] % (Auto) [place] # Seg Neutrophils # PT INR Sodium Carbon Dioxide BUN Creatinine 0.4 L 0.3 L Glucose Uric Acid 3.1 L 2.9 L AST 192 H 141 H ALT 135 H 117 H Alkaline Phosphatase Lactate Dehydrogenase 352 H 296 H Total Protein Albumin 10/12/18 10/12/18 10/13/18 18:59 18:59 04:45 WBC 12.2 H 12.4 H RBC 3.30 L 3.12 L Hgb 9.7 L Hct 28.7 L MCHC Plt Count 119 L 115 L [place] % (Auto) [place] # Seg Neutrophils # PT INR Sodium Carbon Dioxide BUN Creatinine 0.5 L D Glucose Uric Acid 3.0 L AST 101 H ALT 115 H Alkaline Phosphatase Lactate Dehydrogenase 293 H Total Protein Albumin 10/13/18 10/13/18 10/13/18 04:45 17:29 17:29 WBC 13.2 H RBC 3.53 L Hgb Hct MCHC Plt Count 118 L [place] % (Auto) [place] # Seg Neutrophils # PT INR Sodium Carbon Dioxide BUN Creatinine 0.3 L 0.4 L Glucose Uric Acid 2.8 L 2.8 L AST 79 H 125 H ALT 101 H 133 H Alkaline Phosphatase Lactate Dehydrogenase 252 H 346 H Total Protein Albumin 10/14/18 10/14/18 10/14/18 05:54 05:54 09:43 WBC 12.1 H 12.1 H RBC 3.14 L 3.43 L Hgb 9.8 L Hct 28.8 L MCHC Plt Count 103 L 106 L [place] % (Auto) 7.7 H [place] # 0.9 H Seg Neutrophils # 8.4 H PT INR Sodium Carbon Dioxide BUN Creatinine 0.3 L Glucose Uric Acid 3.0 L AST 112 H ALT 118 H Alkaline Phosphatase Lactate Dehydrogenase 330 H Total Protein Albumin 10/14/18 10/14/18 10/15/18 09:43 09:43 05:05 WBC RBC 3.21 L Hgb Hct 29.3 L MCHC 35 H Plt Count 103 L [place] % (Auto) 8.6 H [place] # 0.9 H Seg Neutrophils # PT 12.1 L INR 0.86 L Sodium Carbon Dioxide 21 L BUN 3 L Creatinine 0.4 L Glucose Uric Acid AST 136 H ALT 129 H Alkaline Phosphatase 255 H Lactate Dehydrogenase Total Protein Albumin 3.0 L 10/15/18 10/16/18 10/16/18 05:05 07:33 07:33 WBC RBC 3.31 L Hgb Hct MCHC Plt Count 103 L [place] % (Auto) 8.6 H [place] # 0.9 H Seg Neutrophils # PT INR Sodium Carbon Dioxide BUN Creatinine 0.4 L 0.4 L Glucose Uric Acid AST 82 H 169 H ALT 100 H 136 H Alkaline Phosphatase Lactate Dehydrogenase Total Protein Albumin 10/16/18 10/16/18 14:27 14:27 WBC 11.1 H RBC 3.21 L Hgb Hct 29.5 L MCHC Plt Count 91 L [place] % (Auto) [place] # Seg Neutrophils # PT INR Sodium Carbon Dioxide BUN Creatinine 0.4 L Glucose Uric Acid 2.9 L AST 209 H ALT 153 H Alkaline Phosphatase Lactate Dehydrogenase Total Protein Albumin Laboratory Results - last 24 hr 10/16/18 10/16/18 10/16/18 07:33 07:33 14:27 WBC 10.8 11.1 H RBC 3.31 L 3.21 L Hgb 10.4 10.1 Hct 30.4 29.5 L MCV 92 92 MCH 32 31 MCHC 34 34 RDW 15.2 15.2 Plt Count 103 L 91 L Lymph % (Auto) 24.5 [place] % (Auto) 8.6 H Eos % (Auto) 1.3 Baso % (Auto) 0.4 Lymph # 2.6 [place] # 0.9 H Eos # 0.1 Baso # 0.0 Seg Neutrophils % 65.2 Seg Neutrophils # 7.0 Creatinine 0.4 L Estimated GFR > 60 Uric Acid AST 169 H ALT 136 H Blood Type Antibody Screen 10/16/18 10/16/18 14:27 14:27 WBC RBC Hgb Hct MCV MCH MCHC RDW Plt Count Lymph % (Auto) [place] % (Auto) Eos % (Auto) Baso % (Auto) Lymph # [place] # Eos # Baso # Seg Neutrophils % Seg Neutrophils # Creatinine 0.4 L Estimated GFR > 60 Uric Acid 2.9 L AST 209 H ALT 153 H Blood Type O POSITIVE Antibody Screen Negative
[2018-10-16] MEDS ORDERED: PITOCin/NS 20 UNIT/1000ML DRIP 20 UNITS/1,000 ML BAG IV SCH ×2 (17:00→22:45)
[2018-10-16] MEDS ORDERED: LACTATED RINGERS 1,000 ML IV SCH ×3 (17:00→22:45)
[2018-10-16] MEDS ORDERED: ANCEF/STERILE WATER 2 GM/20 ML 2 GM/20 ML SYRINGE IV NR (17:00)
[2018-10-16] MEDS ORDERED: NACL 0.9% 500 ML 500 ML IV ONE (18:07)
--- NOTE | 2018-10-16 18:17 | Anesthesia Consultation ---
Anesthesia Consult and Med Hx Date of service: 10/16/18 - Airway Anesthetic Teeth Evaluation: Good ROM Head & Neck: Adequate Mallampati Class: Class I Intubation Access Assessment: Good - Pulmonary Exam CTA: Yes - Cardiac Exam Cardiac Exam: RRR - Pre-Operative Health Status ASA Pre-Surgery Classification: ASA3 Proposed Anesthetic Plan: Spinal - Pulmonary Hx Smoking: No Hx Asthma: No COPD: No Hx Pneumonia: No - Cardiovascular System Hx Hypertension: Yes (primary & gestational) Hx Coronary Artery Disease: No Hx Heart Attack/AMI: No Hx Cardia Arrhythmia: No - Central Nervous System Hx Neuromuscular Disorder: No Hx Seizures: No Hx Psychiatric Problems: No - Endocrine Hx Renal Disease: No Hx End Stage Renal Disease: No Hx Hypothyroidism: No Hx Hyperthyroidism: No - Hematic Hx Anemia: No Hx Sickle Cell Disease: No - Other Systems Hx Alcohol Use: No - Additional Comments Anesthesia Medical History Comments: platelets 91k, down from 108k this morning.
--- NOTE | 2018-10-16 18:30 | Event Note ---
Date: 10/16/18 Pt desires to give the second baby band to her mother, Dulce Maria Cr
[2018-10-16] MEDS ORDERED: MARCAINE 0.5% INFILTRATI ONE (19:32)
[2018-10-16] MEDS ORDERED: WATER FOR IRRIG STERILE IR ONE (20:00)
[2018-10-16] MEDS ORDERED: NACL 0.9% IR ONE (20:00)
--- NOTE | 2018-10-16 20:54 | Operative Report ---
Operative Report Operative Report: Date: 10/16/2018 Preoperative diagnosis: 1. Intrauterine at 29 weeks gestation 2. HELLP syndrome 3. Chronic hypertension 4. Morbid obesity body mass index of 41.3 kg/m 5. Breech presentation 6. Uterine fibroid Postoperative diagnosis: 1. Intrauterine at 29 weeks gestation 2. HELLP syndrome 3. Chronic hypertension 4. Morbid obesity body mass index of 41.3 kg/m 5. Breech presentation 6. Uterine fibroid Procedure: 1. Midline vertical classical incision for delivery 2. Myomectomy Surgeon: Raissa Horton MD Copy Technician: Rashmi Rich/Gabriela Baltazar Anesthesia: Spinal Anesthesiologist: Meri Silvestre M.D./Contreras Chinchilla CRNA Estimated blood loss: 600 mL Urine out: [] mL Findings: Live born female . Weight 1 lbs. 3 oz. Apgars 5 at 1 minute and 7 at 5 minutes. Uterus with an approximately 5 cm submucosal fibroid involving the lateral aspect of the incision, tubes grossly normal, ovaries grossly normal. Procedure: After risk, benefits, complications, consequences and alt ernatives for this procedure were discussed with patient and consents were reviewed and signed, she was taken to the OR where spinal anesthesia was placed. She was then placed in the left lateral tilt position, and prepped and draped in the usual sterile fashion. Timeout was performed, and an appropriate level of anesthesia was noted, a Pfannenstiel incision was made and extended to the fascia which was incised and extended in the lateral directions. The overlying fascia was sharply dissected away from the underlying rectus muscles in the superior and inferior directions. The midline was entered bluntly. The lower uterine segment was undeveloped therefore a midline vertical classical uterine incision was performed. There was an anterior placenta and the 's feet were palpated in the lower uterine segment however were difficult to grasp. The infant was delivered through the fundus with extension of the incision. Mouth and nose were bulb suctioned. made an attempts to cry. The was given as much blood as possible from the umbilical cord in at 35 seconds time span. Cord was doubly clamped and cut. The infant was given to /resuscitation team present. The placenta was manually extracted. The uterus was then exteriorized and cleared of any further products of conception or placental tissue. At this point the fibroid was noted involving the left lower aspect of the incision. Due to its position and concern for being able to approximate the incision adequately and securely the decision was made to remove the fibroid. The incision was reapproximated using 0 Vicryl in a running interlocking stitch. A second layer of closure was performed using 0 Vicryl in imbricating fashion. The serosa was reapproximated using 0 Vicryl in a running interlocking stitch. Further hemostasis was obtained with 3-0 Vicryl in interrupted [id number] suture. Once hemostasis was noted, the uterus was allowed back into the pelvic cavity. The pelvis was irrigated with warm normal saline. Again hemostasis was noted . Surgicel applied for further hemostasis. Interceed was then placed to prevent adhesions. Then attention was turned to the rectus muscles. The rectus muscles reapproximated using 0 Vicryl in a simple interrupted stitch x 3. Once hemostasis was noted, the fascia was reapproximated using 0 Vicryl running stitch fashion. Once hemostasis was noted skin incision was reapproximated using 4-0 Vicryl on a Jas needle in a subcuticular manner. Counts were correct 3. Patient tolerated procedure well state recovery room in stable condition. During the procedure the patient was informed of the fibroid with the reason that the fibroid was being removed. She is also informed that she will require with subsequent deliveries.
[2018-10-16] MEDS ORDERED: DILAUDID IV PRN (20:57)
[2018-10-16] MEDS ORDERED: TYLENOL PO ONE (21:15)
[2018-10-16] MEDS ORDERED: NEURONTIN PO ONE (21:15)
[2018-10-16] MEDS ORDERED: DILAUDID ONE (21:22)
[2018-10-16] MEDS ORDERED: MAGNESIUM SULFATE 40GM/1000ML 40 GM/1,000 ML BAG IV ONE (22:43)
[2018-10-16] MEDS ORDERED: MAGNESIUM SULFATE 4GM/100ML 4 GM/100 ML BAG IV ONE (22:45)
[2018-10-16] MEDS ORDERED: MAGNESIUM SULFATE 40GM/1000ML 40 GM/1,000 ML BAG IV SCH (22:45)
[2018-10-16] MEDS ORDERED: SODIUM CHLORIDE FLUSH SYRINGE 10 ML IV NR (22:45)
[2018-10-16] MEDS ORDERED: D5LR 1,000 ML IV SCH (22:45)
[2018-10-16] MEDS ORDERED: TUCKS PAD TP PRN (22:45)
[2018-10-16] MEDS ORDERED: ZOFRAN IV PRN (22:45)
[2018-10-16] MEDS ORDERED: NARCAN 0.4 MG/1 ML IV PRN (22:45)
[2018-10-16] MEDS ORDERED: REGLAN PO PRN (22:45)
[2018-10-16] MEDS ORDERED: REGLAN IV PRN (22:45)
[2018-10-16] MEDS ORDERED: PHENERGAN PR PRN (22:45)
[2018-10-16] MEDS ORDERED: BENADRYL PO PRN (22:45)
[2018-10-16] MEDS ORDERED: DILAUDID PCA 6MG/30ML IV SCH (22:45)
[2018-10-16] MEDS ORDERED: LANSINOH TP PRN (22:45)
[2018-10-17] MEDS: ANCEF/NS 1 GM/50 ML 1 GM/50 ML BAG IV SCH ×2 (04:40→10:22)
[2018-10-17 05:06] LABS: Alanine Aminotransferase 121 units/L (7-56)
[2018-10-17 05:30] LABS: Hematocrit 32.1 % (30.3-42.9); Hemoglobin 10.6 gm/dl (10.1-14.3); Mean Corpuscular HGB Conc 33 % (30-34); Mean Corpuscular Volume 94 fl (79-97); Platelet Count 104 K/mm3 (140-440); Red Blood Count 3.41 M/mm3 (3.65-5.03); Red Cell Distribution Width 15.8 % (13.2-15.2)
[2018-10-17] MEDS ORDERED: BOOSTRIX IM ONE (06:00)
[2018-10-17] MEDS: APRESOLINE PO SCH ×2 (06:10→22:45)
--- NOTE | 2018-10-17 06:53 | Progress Note ---
Assessment and Plan Pt A&O X 3 Pt w/o complaint BP 140-130/90-80 H&H stable LFT decreasing Dressing D&I Doing well s/p c/s; HELLP P: continue pathway MGSO4 X 24 hours Continue to monitor BPs. Pt instructed to report any HENSON, blurred vision, chest pain. - Patient Problems (1) delivery delivered Onset Date: ~10/16/18 Current Visit: Yes Status: Acute (2) HELLP syndrome Onset Date: ~10/16/18 Current Visit: Yes Status: Acute Subjective - Subjective Date of service: 10/17/18 (no c/o voiced) Principal diagnosis: Day #1 s/p primary section @ 27w breech; HELLP Patient reports: voiding normally (clear yellow urine to BSB), pain well controlled [place]: in NICU Objective - Vital Signs Latest vital signs: Vital Signs Temp Pulse Resp BP BP Pulse Ox 10/17/18 06:34 98 H 146/89 10/17/18 06:19 89 138/88 10/17/18 06:10 93 H 142/90 10/17/18 06:04 93 H 142/90 10/17/18 05:49 94 H 130/82 10/17/18 05:34 96 H 128/80 10/17/18 05:19 87 128/79 10/17/18 05:05 88 127/79 10/17/18 04:49 89 139/87 10/17/18 04:34 92 H 138/84 10/17/18 04:19 92 H 136/79 10/17/18 04:04 88 132/80 10/17/18 03:49 91 H 128/77 10/17/18 03:35 98 H 119/77 10/17/18 03:14 97 H 116/67 10/17/18 03:09 96 H 119/65 10/17/18 03:04 97 H 113/61 10/17/18 02:59 94 H 126/71 10/17/18 02:54 91 H 128/70 10/17/18 02:49 96 H 123/68 10/17/18 02:44 96 H 127/74 10/17/18 02:39 96 H 131/72 10/17/18 02:34 96 H 129/72 10/17/18 02:29 96 H 127/71 10/17/18 02:24 95 H 126/75 10/17/18 02:19 93 H 130/77 10/17/18 02:14 98 H 137/79 10/17/18 02:09 101 H 128/75 10/17/18 02:04 100 H 132/74 10/17/18 01:59 97 H 131/72 10/17/18 01:54 98 H 124/69 10/17/18 01:49 97 H 129/71 10/17/18 01:44 94 H 136/76 10/17/18 01:39 96 H 134/79 10/17/18 01:34 96 H 137/80 10/17/18 01:29 96 H 141/79 10/17/18 01:24 96 H 139/77 10/17/18 01:19 96 H 132/71 10/17/18 01:14 96 H 132/73 10/17/18 01:09 96 H 136/72 10/17/18 01:04 96 H 138/74 10/17/18 00:59 98 H 141/71 10/17/18 00:54 98 H 137/65 10/17/18 00:49 93 H 149/84 10/17/18 00:44 99 H 147/85 10/17/18 00:39 96 H 143/81 10/17/18 00:34 93 H 137/82 10/17/18 00:29 96 H 138/85 10/17/18 00:19 96 H 132/77 10/17/18 00:14 97 H 137/79 10/17/18 00:09 96 H 143/84 10/17/18 00:04 91 H 148/81 10/16/18 23:59 93 H 140/89 10/16/18 23:45 90 152/97 10/16/18 21:50 14 10/16/18 21:45 98.6 F 77 17 161/105 98 10/16/18 21:30 77 17 161/105 99 10/16/18 21:21 19 10/16/18 21:19 80 175/108 10/16/18 21:16 76 175/108 10/16/18 21:15 73 20 174/110 99 10/16/18 21:00 75 19 171/99 100 10/16/18 20:55 80 24 169/103 100 10/16/18 20:50 98.0 F 71 22 161/105 100 10/16/18 16:45 98 H 19 152/93 10/16/18 16:22 89 158/93 10/16/18 15:38 99.7 F H 99 H 18 148/84 98 10/16/18 13:00 98.8 F 102 H 142/88 10/16/18 12:15 98.7 F 74 16 98 10/16/18 10:29 98.7 F 98 H 16 148/90 98 10/16/18 08:34 96 H 99 10/16/18 08:29 93 H 98 10/16/18 08:24 97 H 99 10/16/18 08:19 90 99 Intake and Output 10/16/18 10/16/18 10/17/18 14:59 22:59 06:59 Intake Total 200 Output Total 500 Balance -300 Intake: IV 200 Output: Urine 500 Uretheral ([place]) 250 - Exam Breasts: Present: normal Cardiovascular: Present: Regular rate Lungs: Present: Clear to auscultation Abdomen: Present: normal appearance, soft Uterus: Present: normal, fundal height below umbilicus Extremities: Present: normal Incision: Present: normal, dry, intact, dressed - Labs Labs: Abnormal lab results 10/16/18 10/16/18 10/16/18 Range/Units 07:33 07:33 14:27 WBC 11.1 H (4.5-11.0) K/mm3 RBC 3.31 L 3.21 L (3.65-5.03) M/mm3 Hct 29.5 L (30.3-42.9) % RDW (13.2-15.2) % Plt Count 103 L 91 L (140-440) K/mm3 [place] % (Auto) 8.6 H (0.0-7.3) % [place] # 0.9 H (0.0-0.8) K/mm3 Creatinine 0.4 L (0.7-1.2) mg/dL Uric Acid (3.5-7.6) mg/dL Magnesium (1.7-2.3) mg/dL AST 169 H (5-40) units/L ALT 136 H (7-56) units/L Crossmatch 10/16/18 10/16/18 10/17/18 Range/Units 14:27 14:27 00:21 WBC (4.5-11.0) K/mm3 RBC (3.65-5.03) M/mm3 Hct (30.3-42.9) % RDW (13.2-15.2) % Plt Count (140-440) K/mm3 [place] % (Auto) (0.0-7.3) % [place] # (0.0-0.8) K/mm3 Creatinine 0.4 L (0.7-1.2) mg/dL Uric Acid 2.9 L (3.5-7.6) mg/dL Magnesium 4.10 H (1.7-2.3) mg/dL AST 209 H (5-40) units/L ALT 153 H (7-56) units/L Crossmatch See Detail 10/17/18 10/17/18 10/17/18 Range/Units 04:23 04:23 04:23 WBC 19.7 H (4.5-11.0) K/mm3 RBC 3.41 L (3.65-5.03) M/mm3 Hct (30.3-42.9) % RDW 15.8 H (13.2-15.2) % Plt Count 104 L (140-440) K/mm3 [place] % (Auto) (0.0-7.3) % [place] # (0.0-0.8) K/mm3 Creatinine 0.4 L (0.7-1.2) mg/dL Uric Acid (3.5-7.6) mg/dL Magnesium 4.00 H (1.7-2.3) mg/dL AST 107 H (5-40) units/L ALT 121 H (7-56) units/L Crossmatch
[2018-10-17] MEDS ORDERED: LACTATED RINGERS 1,000 ML ONE (11:30)
[2018-10-17] MEDS: NORMODYNE PO SCH ×2 (11:37→21:29)
[2018-10-17] MEDS ORDERED: AFLURIA QUAD 2018-2019 SYRINGE IM ONE (12:00)
[2018-10-17] MEDS ORDERED: LACTATED RINGERS 1,000 ML IV SCH (12:00)
--- NOTE | 2018-10-17 18:06 | Event Note ---
Date: 10/17/18 (MGSO4 off) pt transfer order done. Will go by NICU on her way to M/B
[2018-10-17] MEDS ORDERED: MORPHINE IV PRN ×2 (20:27)
[2018-10-17] MEDS: PERCOCET 5/325 PO PRN (21:24)
[2018-10-17] MEDS: MILK OF MAGNESIA PO PRN (21:27)
[2018-10-18] MEDS: PERCOCET 5/325 PO PRN ×3 (08:03→22:35)
[2018-10-18] MEDS: MYLICON PO PRN ×2 (08:13→22:39)
--- NOTE | 2018-10-18 08:16 | Progress Note ---
Assessment and Plan patient resting without complaints. denies HENSON, visual changes or epigastric pain. b/p's 120-130's/70-80's. pt voiding without difficulty. States baby is doing well in NICU. incision remains dressed, advised pt to shower today and RN will remove dressing. Lochia scant. continue postop pathway. - Patient Problems (1) Chronic hypertension with superimposed pre-eclampsia Current Visit: No Status: Chronic (2) delivery delivered Onset Date: ~10/16/18 Current Visit: Yes Status: Acute (3) HELLP syndrome Onset Date: ~10/16/18 Current Visit: Yes Status: Acute Qualifiers: Trimester: unspecified trimester Qualified Code(s): O14.20 - HELLP syndrome (HELLP), unspecified trimester Subjective - Subjective Date of service: 10/18/18 Principal diagnosis: Day #2 s/p primary section @ 27w breech; HELLP Patient reports: appetite normal, voiding normally, pain well controlled, fla tus, ambulating normally, no dizzy ambulation, no nauseated [place]: in NICU Objective - Vital Signs Latest vital signs: Vital Signs Temp Pulse Resp BP BP Pulse Ox 10/18/18 04:15 98.6 F 98 H 18 123/75 10/18/18 00:00 98.0 F 95 H 18 137/84 10/17/18 22:45 85 134/81 10/17/18 22:24 16 10/17/18 21:29 85 134/81 10/17/18 21:24 20 10/17/18 19:00 97.6 F 89 18 124/72 97 10/17/18 18:04 88 142/76 10/17/18 17:49 92 H 138/84 10/17/18 17:47 89 138/76 10/17/18 17:34 85 128/71 10/17/18 17:19 94 H 128/73 10/17/18 17:04 86 127/66 10/17/18 16:49 93 H 140/68 10/17/18 16:34 96 H 135/66 10/17/18 16:20 100 H 150/79 10/17/18 15:49 93 H 142/81 10/17/18 15:35 91 H 145/88 10/17/18 15:20 95 H 155/96 10/17/18 15:04 89 121/73 10/17/18 14:49 85 128/75 10/17/18 14:34 88 122/72 10/17/18 14:19 93 H 133/74 10/17/18 14:04 88 127/75 10/17/18 13:49 93 H 139/83 10/17/18 13:35 94 H 132/79 10/17/18 13:19 89 117/69 10/17/18 13:04 89 124/73 10/17/18 12:49 93 H 119/68 10/17/18 12:34 98 H 114/64 10/17/18 12:19 96 H 126/69 10/17/18 12:04 90 122/71 10/17/18 11:49 99 H 138/75 10/17/18 11:34 104 H 135/86 10/17/18 11:19 96 H 140/88 10/17/18 11:05 100 H 129/84 10/17/18 10:50 97 H 119/70 10/17/18 10:34 100 H 137/76 10/17/18 10:20 104 H 132/72 10/17/18 10:05 101 H 144/81 10/17/18 09:49 105 H 112/73 10/17/18 09:34 109 H 128/84 10/17/18 09:19 97 H 135/85 10/17/18 09:04 101 H 147/83 10/17/18 08:49 104 H 150/86 10/17/18 08:34 98 H 145/82 10/17/18 08:19 104 H 148/84 Intake and Output 10/17/18 10/18/18 10/18/18 23:59 07:59 15:59 Intake Total 240 Output Total 1999 600 Balance -1999 -360 Intake: Oral 240 Output: Urine 1999 600 Void 1999 600 Other: Total, Intake Amount 240 Total, Output Amount 1999 600 - Exam Breasts: Present: normal Cardiovascular: Present: Regular rate Lungs: Present: Clear to auscultation, Normal air movement Abdomen: Present: normal appearance, soft Vulva: both: normal Uterus: Present: normal, firm, fundal height at umbilicus Extremities: Present: normal Deep Tendon Reflex Grade: Normal +2 Incision: Present: dry, dressed - Labs Labs: Abnormal lab results 10/17/18 10/17/18 Range/Units 13:32 19:05 Magnesium 4.60 H 4.20 H (1.7-2.3) mg/dL
[2018-10-18 10:13] LABS: Alanine Aminotransferase 69 units/L (7-56)
[2018-10-18 10:20] LABS: Basophils % (Auto) 0.3 % (0.0-1.8); Eosinophils % (Auto) 0.2 % (0.0-4.3); Lymphocytes # (Auto) 3.3 K/mm3 (1.2-5.4); Lymphocytes % (Auto) 18.9 % (13.4-35.0); Mean Corpuscular HGB Conc 33 % (30-34); Mean Corpuscular Volume 94 fl (79-97); Monocytes # (Auto) 1.3 K/mm3 (0.0-0.8); Monocytes % (Auto) 7.3 % (0.0-7.3); Platelet Count 146 K/mm3 (140-440); Red Blood Count 2.89 M/mm3 (3.65-5.03); Red Cell Distribution Width 15.8 % (13.2-15.2)
[2018-10-18] MEDS: NORMODYNE PO SCH ×2 (10:58→22:42)
[2018-10-18] MEDS: APRESOLINE PO SCH ×2 (15:30→22:40)
[2018-10-19] MEDS: MILK OF MAGNESIA PO PRN (00:52)
[2018-10-19] MEDS: PERCOCET 5/325 PO PRN ×2 (04:38→12:10)
[2018-10-19] MEDS: APRESOLINE PO SCH ×3 (06:06→13:43)
[2018-10-19] MEDS: NORMODYNE PO SCH (10:42)
--- NOTE | 2018-10-19 11:07 | Discharge Summary ---
Addendum entered and electronically signed by EMRE JOHNSON CNM 10/19/18 11:34: BP stable. Patient will resume prescribed BP medications after discharge. Patient denies any headache, visual disturbances, RUQ pain. PIH assessment WNL. Patient instructed to schedule 1 week appointment for BP and incision check. Patient to call with any PIH s/s, questions, or concerns. Original Note: Providers - Providers Date of Admission: 10/08/18 02:08 Date of discharge: 10/19/18 (patient desires discharge today.) Attending physician: NARA ALLEN 10/16/18 22:45 Consult to [employer] [CONS] Routine Reason For Exam: Primary care physician: NARA ALLEN Hospitalization Reason for admission: Abdominal pain, elevated LFTs Condition: Good Pertinent studies: post delivery H&H 06/13, platelets 146, AST/ALT 36/69. Procedures: Primary c/s for hellp syndrome. Hospital course: Antepartum admission complicated by primary c/s for HELLP syndrome. Uncomplicated c/s and course. Disposition: DC-01 TO HOME OR SELFCARE Core Measure Documentation - Palliative Care Palliative Care/ Comfort Measures: Not Applicable - Core Measures Any of the following diagnoses?: none Exam - Constitutional Vitals: Temp Pulse Resp BP Pulse Ox 98.3 F 92 H 20 124/75 92 10/19/18 07:52 10/19/18 07:52 10/19/18 07:52 10/19/18 07:52 10/19/18 07:52 General appearance: Present: no acute distress, well-nourished - EENT Eyes: Present: PERRL ENT: hearing intact, clear oral mucosa - Neck Neck: Present: supple, normal ROM - Respiratory Respiratory effort: normal Respiratory: bilateral: CTA - Cardiovascular Rhythm: regular Heart Sounds: Present: S1 & S2. Absent: rub, click - Extremities Extremities: pulses symmetrical, No edema Peripheral Pulses: within normal limits - Abdominal General gastrointestinal: Present: soft, non-tender, non-distended, normal bowel sounds Female genitourinary: Present: normal - Integumentary Integumentary: Present: clear, warm, dry - Musculoskeletal Musculoskeletal: gait normal, strength equal bilaterally - Psychiatric Psychiatric: appropriate mood/affect, intact judgment & insight - Neurologic Neurologic: CNII-XII intact, moves all extremities - Additional findings Additional findings: Fundus firm, ML, bleeding scant. Incision well approximated, healing well, no bleeding or drainage noted. Pain is well controlled with pain medications. Patient is pumping breast milk for infant in NICU, breast are feeling well, no complaints. Plan Activity: no restrictions, advance as tolerated Diet: regular Wound: open to air, keep clean and dry Follow up with: NARA ALLEN MD [Primary Care Provider] - 7 Days (Please call [phone] to schedule your incision check appointment for 1 week. Call with any questions or concerns. ) Prescriptions: Docusate Sodium [Colace] 100 mg PO BID PRN #30 capsule PRN Reason: Constipation Ferrous Sulfate [Feosol 325 MG tab] 325 mg PO BID #90 tablet Ibuprofen [Motrin 800 MG tab] 800 mg PO TID PRN #30 tablet PRN Reason: Pain oxyCODONE /ACETAMINOPHEN [Percocet 5/325 mg] 1 - 2 tab PO Q4HR PRN #20 tablet PRN Reason: Pain
[2018-10-20 11:24] VITALS: BP 144/81
== END 2018-10-19 14:20 | disposition home or self-care (01) | DRG 786 ==
LOC: TRG 22:35 → LD 10-08 01:23 → TRG 10-08 01:23 → OBSVTOIN 10-08 02:08 → OB 10-17 20:29
PROVIDERS: ADMIT Obstetrics & Gynecology; ATTEND Obstetrics & Gynecology
PROC: 10D00Z0 Extraction of Products of Conception, High, Open Approach (ICD-10-PCS; principal; 2018-10-16)
PROC: 0UB90ZZ Excision of Uterus, Open Approach (ICD-10-PCS; 2018-10-16)
PROC: 3E0234Z Introduction of Serum, Toxoid and Vaccine into Muscle, Percutaneous Approach (ICD-10-PCS; 2018-10-17)
DX: O36.5930 Maternal care for other known or suspected poor fetal growth, third trimester, not applicable or unspecified (principal); O60.14X0 Preterm labor third trimester with preterm delivery third trimester, not applicable or unspecified; O32.1XX0 Maternal care for breech presentation, not applicable or unspecified; Z37.0 Single live birth; E66.01 Morbid (severe) obesity due to excess calories; O34.13 Maternal care for benign tumor of corpus uteri, third trimester; O35.8XX0 Maternal care for other (suspected) fetal abnormality and damage, not applicable or unspecified; R74.0 Nonspecific elevation of levels of transaminase and lactic acid dehydrogenase [LDH]; Z23 Encounter for immunization; Z3A.25 25 weeks gestation of pregnancy; O11.4 Pre-existing hypertension with pre-eclampsia, complicating childbirth; O99.214 Obesity complicating childbirth; D25.0 Submucous leiomyoma of uterus; O69.89X0 Labor and delivery complicated by other cord complications, not applicable or unspecified; Q27.0 Congenital absence and hypoplasia of umbilical artery; O76 Abnormality in fetal heart rate and rhythm complicating labor and delivery
CPT/HCPCS: 36415; 76815; 76816; 76819; 76820; 80053; 80307; 81001; 82150; 82565; 83615; 83690; 83735; 84450; 84460; 84550; 85025; 85027; 85610; 85730; 86850; 86900; 86901; 86920; 88305; 90686; G0378; C1765; J0690; J0702; J1170; J2405; J2590; J2765; J3475; J7120; J7121